=== PATIENT | female | born 1970 | race Caucasian/White ===

== ENCOUNTER 2018-10-20 12:36 | Inpatient (IN) | payer MEDICARE, MEDICAID, SELFPAY ==
[2018-10-20] VITALS (90 sets, daily range): BP systolic 80–152; BP diastolic 61–106; PULSE 88–113; RESP 5–30; TEMP 36.4–36.8; O2SAT 96–100
--- NOTE | 2018-10-20 12:36 | W.ED.GENAD ---
Discharge Plan Disposition Patient Disposition: [facility] INPATIENT Condition: Stable Discharge Details Chief Complaint: OD/Poison Clinical Impression: Polysubstance overdose, Depression, Suicide attempt, Alcohol abuse Reason For Visit: INTENTIONAL OVERDOSE/SUICIDE ATTEMPT Admit Date/Time: 10/20/18 21:50 Admit Provider: Allyson Burton Attending Provider: Allyson Burton Primary Care Provider: Ghassan Jean ED Provider: Cassie Abdi Discharge Data Discharge Date/Time-TO BE ENTERED AT DEPARTURE: 10/20/18 23:31 Medical Decision Making <Basilio Escobar MD - Last Filed: 10/21/18 07:46> 48 yo female comes in with EMS and PD after she reportedly told family she was going to overdose on pills and was intoxicated. When PD and ems got to her house she was combative so they had to give her 5mg IM versed and 2.5mg IV versed. She is currently asleep, PERRL, no signs of trauma to the head, does withdraw to the painful stimuli on exam so unlikely tbi but given the ams will obtain ct head to eval for this. It is unclear what if any pills she took. she has prescription bottles that are empty but were filled over a month ago. Will obtain tox workup and monitor Spoke with the pt's sister Zoila who states she thinks what caused today's episode is likely related to the pt's . The has been in [facility] for a year and she went to see him today and he reportedly refused to see her so she feels this may have caused her incident today. She was not able to say what if any pills she took as she wasn't with her earlier. pt remains stable, was moving in CT so ativan given to help facilitate the study, neuro exam stable. Labs unremarkable other than K of 2.9 and ethyl alcohol of 214, urine positive for amphetamines but is on dextroampehetamine that is prescribed. CT head unremarkable. Will repeat acetaminophen level to make sure this is unremarkable at about 4 hours repeate acetaminophen is negative, K is now normal, lactate is mildly elevated at 3 that I suspect could be from dehydrtaion, less likely significant metformin overdose. will repeat lactate after fluids and recheck alcohol level. She does state she is still having SI and depression lactate level decreasing. ph normal. She has no gi symptoms. When her alcohol level is at a point where mental health can evaluate will have them see the pt. pt is now stating she is having a chest burning that she is unsure when it started. It is nonradiating. I suspect gastritis from recent alcohol use, heart score is 2. Will obtain ekg and troponin. pt will be signed out to oncoming provider to f/u on results and if negative workup have mental health see her Differential Diagnosis polysbustance abuse, depression Imaging Data Radiologic Study: Attestation: I personally reviewed and interpreted this imaging study as follows: Imaging: CT Scan Radiologist's impression: no acute findings Lab Data Lab results reviewed: Yes I reviewed the patient's lab results. ECG Data Attestation: I personally reviewed and interpreted this ECG (s) as follows: Prior ECG tracings: not available for review Interpretation: normal sinus rhythm, rate of 96, pr 144, no acute st t wave ischemic changes 2nd ekg shows sinus rhythm, rate of 101, pr 134, no acute st t wave changes <Cassie Abdi DO - Last Filed: 10/21/18 06:53> 48-year-old female with history of depression, GERD, CVA, cervical cancer, hypertension, diabetes, schizophrenia, alcohol abuse who presents status post intentional poly-drug overdose and alcohol use today. Upon endorsement from Dr. Escobar, patient had been medically cleared, but she had complained of some chest pain so an EKG and troponin was ordered. EKG noted a rate of 101, sinus tachycardia, but no acute ST elevation or depression. Her troponin was subsequently negative. Patient had been drowsy on her initial presentation and the history was unclear at that time. Upon my evaluation, patient states that she has been feeling depressed and suicidal for the past 4 months. She admits to a long-standing history of depression since her daughter at age 12 in an MVA in 2004. She also states her has been in [facility]dc for the past year and possibly for the next 2. She also states her son is addicted to heroin. She states these stressors in addition to the state possibly taking away her 18 dogs, has led her to be more depressed and suicidal. She states she has been drinking 2-1/2 bottles of [employer] rum for the past 9 days. She states in a suicide attempt today, she drank alcohol and took all of her bottles of medication. She states her gabapentin bottle was near full and had 120 tabs in it. Review of her medications include metformin, dextroamphetamine, naproxen, lisinopril, ranitidine, Celexa, Fioricet, lovastatin, gabapentin, hydroxyzine, ropinirole. 2099 -- This was discussed with poison control -as patient has been observed for approximately 9 hours, we would expect some sort of significant side effects at this time. Concerns with metformin include lactic acidosis, with Celexa agitation, increased QT prolongation, Fioricet concern with Tylenol, gabapentin nystagmus, tremors and drowsiness, hydroxyzine as an anticholinergic with tachycardia, drowsiness. As patient is awake and alert and oriented, with no significant QT prolongation, and has been hemodynamically stable, agree that patient is likely medically cleared at this point. She has had 2- Tylenol levels, negative salicylate, and lactate improving after fluids. 2119 --case discussed with hospitalist and she accepts patient for admission. 2199 --discussed with mental health evaluated patient and states that bed might be available for tonight. Will discuss with with hospitalist if possible. HPI <Basilio Escobar MD - Last Filed: 10/21/18 07:46> General Mode of arrival: EMS. Date/Time Provider Initiated Documentation: 10/20/18 12:46. Limitations to Documentation: altered mental status. Information obtained by: police and EMS. History of Present Illness 48 year old F presents to the emergency department with the chief complaint of threatened to harm self, Patient started experiencing this unknown Patient notes other (unknown). Patient did receive the following treatments prior to arrival, other (5mg IM versed with EMS and 2.5mg IV versed with EMS) Related Data Home Medications Medication Instructions Recorded Confirmed [id number]-[id number]-[id number] 1 - 2 cap PO .Q6HRS PRN 10/20/18 10/21/18 citalopram 40 mg PO DAILY 10/20/18 10/20/18 dextroamphetamine-amphetamine 20 mg PO BID 10/20/18 10/21/18 gabapentin 200 mg PO BID 10/20/18 10/21/18 hydroxyzine pamoate 3 cap PO .QHS PRN 10/20/18 10/21/18 lisinopril 2.5 mg PO DAILY 10/20/18 10/21/18 lovastatin 20 mg PO DAILY 10/20/18 10/21/18 metformin 1,000 mg PO BID 10/20/18 10/20/18 naproxen sodium 500 mg PO BID 10/20/18 10/21/18 ranitidine HCl 150 mg PO BID 10/20/18 10/21/18 ropinirole 1 tab PO .QHS 10/20/18 10/20/18 Allergies Allergy/AdvReac Type Severity Reaction Status Date / Time bee venom protein (honey bee) Allergy Severe Anaphylaxsi Unverified 10/20/18 18:33 s strawberry Allergy Severe Anaphylaxsi Unverified 10/20/18 18:33 s morphine Allergy Intermediate Nausea Unverified 10/20/18 18:33 Review of Systems <Basilio Escobar MD - Last Filed: 10/21/18 07:46> Review of Systems Unobtainable due to mental status PFS <Basilio Escobar MD - Last Filed: 10/21/18 07:46> Medical History Alcohol abuse (Chronic) Bipolar disorder (Chronic) Chronic headaches (Chronic) GERD (gastroesophageal reflux disease) (Chronic) Hyperlipidemia (Chronic) Hypertension (Chronic) Non-insulin dependent type 2 diabetes mellitus (Chronic) Schizophrenia (Chronic) Cervical cancer (Resolved) Suicide attempt (Resolved) Surgical History H/O: hysterectomy (Chronic) History of facial surgery (Chronic) S/P cholecystectomy (Chronic) Social History Smoking/Tobacco Use Status: Current every day tobacco type: cigarettes counseling given: provider counseling alcohol intake: current alcohol intake frequency: 3 or more drinks per day Alcohol type: hard liquor counseling given: Yes substance use type: does not use Exam <Basilio Escobar MD - Last Filed: 10/21/18 07:46> Const General: lethargic HENMT Head: normal to inspection Ears: external ears normal General nose exam: external nose normal Mouth: moist mucous membranes Eyes General: appearance normal, both eyes and all related structures Neck Neck: normal visual inspection Resp Effort & Inspection: normal respiratory effort Cardio Rate: regular rate Skin General skin exam: no rashes or lesions noted Neuro General: other (patient asleep, withdraws extremities from painful stimuli and makes groans) Cranial Nerves: PERRL Extrem General: normal to inspection Psych Mental Status: mental status grossly normal Sign Out <Basilio Escobar MD - Last Filed: 10/21/18 07:46> Sign Out Data: Sign Out Comment: follow up on troponin, and mental health eval Last updated by Basilio Escobar MD at 10/20/18 19:54
--- NOTE | 2018-10-20 12:51 | ED.GENADUL_ITS ---
Discharge Plan Disposition Patient Disposition: [facility] INPATIENT Condition: Stable Discharge Details Chief Complaint: OD/Poison Clinical Impression: Polysubstance overdose, Depression, Suicide attempt, Alcohol abuse Reason For Visit: INTENTIONAL OVERDOSE/SUICIDE ATTEMPT Admit Date/Time: 10/20/18 21:50 Admit Provider: Allyson Burton Attending Provider: Allyson Burton Primary Care Provider: Ghassan Jean ED Provider: Cassie Abdi Discharge Data Discharge Date/Time-TO BE ENTERED AT DEPARTURE: 10/20/18 23:31 Medical Decision Making <Basilio Escobar MD - Last Filed: 10/21/18 07:46> 48 yo female comes in with EMS and PD after she reportedly told family she was going to overdose on pills and was intoxicated. When PD and ems got to her house she was combative so they had to give her 5mg IM versed and 2.5mg IV versed. She is currently asleep, PERRL, no signs of trauma to the head, does withdraw to the painful stimuli on exam so unlikely tbi but given the ams will obtain ct head to eval for this. It is unclear what if any pills she took. she has prescription bottles that are empty but were filled over a month ago. Will obtain tox workup and monitor Spoke with the pt's sister Zoila who states she thinks what caused today's episode is likely related to the pt's . The has been in shelter for a year and she went to see him today and he reportedly refused to see her so she feels this may have caused her incident today. She was not able to say what if any pills she took as she wasn't with her earlier. pt remains stable, was moving in CT so ativan given to help facilitate the study, neuro exam stable. Labs unremarkable other than K of 2.9 and ethyl alcohol of 214, urine positive for amphetamines but is on dextroampehetamine that is prescribed. CT head unremarkable. Will repeat acetaminophen level to make sure this is unremarkable at about 4 hours repeate acetaminophen is negative, K is now normal, lactate is mildly elevated at 3 that I suspect could be from dehydrtaion, less likely significant metformin overdose. will repeat lactate after fluids and recheck alcohol level. She does state she is still having SI and depression lactate level decreasing. ph normal. She has no gi symptoms. When her alcohol level is at a point where mental health can evaluate will have them see the pt. pt is now stating she is having a chest burning that she is unsure when it s tarted. It is nonradiating. I suspect gastritis from recent alcohol use, heart score is 2. Will obtain ekg and troponin. pt will be signed out to oncoming provider to f/u on results and if negative workup have mental health see her Differential Diagnosis polysbustance abuse, depression Imaging Data Radiologic Study: Attestation: I personally reviewed and interpreted this imaging study as follows: Imaging: CT Scan Radiologist's impression: no acute findings Lab Data Lab results reviewed: Yes I reviewed the patient's lab results. ECG Data Attestation: I personally reviewed and interpreted this ECG (s) as follows: Prior ECG tracings: not available for review Interpretation: normal sinus rhythm, rate of 96, pr 144, no acute st t wave ischemic changes 2nd ekg shows sinus rhythm, rate of 101, pr 134, no acute st t wave changes <Cassie Abdi DO - Last Filed: 10/21/18 06:53> 48-year-old female with history of depression, GERD, CVA, cervical cancer, hypertension, diabetes, schizophrenia, alcohol abuse who presents status post intentional poly-drug overdose and alcohol use today. Upon endorsement from Dr. Escobar, patient had been medically cleared, but she had complained of some chest pain so an EKG and troponin was ordered. EKG noted a rate of 101, sinus tachycardia, but no acute ST elevation or depression. Her troponin was subsequently negative. Patient had been drowsy on her initial presentation and the history was unclear at that time. Upon my evaluation, patient states that she has been feeling depressed and suicidal for the past 4 months. She admits to a long-standing history of depression since her daughter at age 10 in an MVA in 2004. She also states her has been in shelter for the past year and possibly for the next 2. She also states her son is addicted to heroin. She states these stressors in addition to the state possibly taking away her 18 dogs, has led her to be more depressed and suicidal. She states she has been drinking 2-1/2 bottles of [employer] rum for the past 9 days. She states in a suicide attempt today, she drank alcohol and took all of her bottles of medication. She states her gabapentin bottle was near full and had 120 tabs in it. Review of her medications include metformin, dextroamphetamine, naproxen, lisinopril, ranitidine, Celexa, Fioricet, lovastatin, gabapentin, hydroxyzine, ropinirole. 2099 -- This was discussed with poison control -as patient has been observed for approximately 9 hours, we would expect some sort of significant side effects at this time. Concerns with metformin include lactic acidosis, with Celexa agitation, increased QT prolongation, Fioricet concern with Tylenol, gabapentin nystagmus, tremors and drowsiness, hydroxyzine as an anticholinergic with tachycardia, drowsiness. As patient is awake and alert and oriented, with no significant QT prolongation, and has been hemodynamically stable, agree that patient is likely medically cleared at this point. She has had 2- Tylenol levels, negative salicylate, and lactate improving after fluids. 2119 --case discussed with hospitalist and she accepts patient for admission. 2199 --discussed with mental health evaluated patient and states that bed might be available for tonight. Will discuss with with hospitalist if possible. HPI <Basilio Escobar MD - Last Filed: 10/21/18 07:46> General Mode of arrival: EMS . Date/Time Provider Initiated Documentation: 10/20/18 12:46 . Limitations to Documentation: altered mental status . Information obtained by: police and EMS . History of Present Illness 48 year old F presents to the emergency department with the chief complaint of threatened to harm self, Patient started experiencing this unknown Patient notes other (unknown). Patient did receive the following treatments prior to arrival, other (5mg IM versed with EMS and 2.5mg IV versed with EMS) Related Data Home Medications Medication Instructions Recorded Confirmed jahprosdzr-llyzawojgqadk-qtpk 1 - 2 cap PO .Q6HRS PRN 10/20/18 10/21/18 citalopram 40 mg PO DAILY 10/20/18 10/20/18 dextroamphetamine-amphetamine 20 mg PO BID 10/20/18 10/21/18 gabapentin 200 mg PO BID 10/20/18 10/21/18 hydroxyzine pamoate 3 cap PO .QHS PRN 10/20/18 10/21/18 lisinopril 2.5 mg PO DAILY 10/20/18 10/21/18 lovastatin 20 mg PO DAILY 10/20/18 10/21/18 metformin 1,000 mg PO BID 10/20/18 10/20/18 naproxen sodium 500 mg PO BID 10/20/18 10/21/18 ranitidine HCl 150 mg PO BID 10/20/18 10/21/18 ropinirole 1 tab PO .QHS 10/20/18 10/20/18 Allergies Allergy/AdvReac Type Severity Reaction Status Date / Time bee venom protein (honey bee) Allergy Severe Anaphylaxsi Unverified 10/20/18 18:33 s strawberry Allergy Severe Anaphylaxsi Unverified 10/20/18 18:33 s morphine Allergy Intermediate Nausea Unverified 10/20/18 18:33 Review of Systems <Basilio Escobar MD - Last Filed: 10/21/18 07:46> Review of Systems Unobtainable due to mental status PFS <Basilio Escobar MD - Last Filed: 10/21/18 07:46> Medical History Alcohol abuse (Chronic) Bipolar disorder (Chronic) Chronic headaches (Chronic) GERD (gastroesophageal reflux disease) (Chronic) Hyperlipidemia (Chronic) Hypertension (Chronic) Non-insulin dependent type 2 diabetes mellitus (Chronic) Schizophrenia (Chronic) Cervical cancer (Resolved) Suicide attempt (Resolved) Surgical History H/O: hysterectomy (Chronic) History of facial surgery (Chronic) S/P cholecystectomy (Chronic) Social History Smoking/Tobacco Use Status: Current every day tobacco type: cigarettes counseling given: provider counseling alcohol intake: current alcohol intake frequency: 3 or more drinks per day Alcohol type: hard liquor counseling given: Yes substance use type: does not use Exam <Basilio Escobar MD - Last Filed: 10/21/18 07:46> Const General: lethargic HENMT Head: normal to inspection Ears: external ears normal General nose exam: external nose normal Mouth: moist mucous membranes Eyes General: appearance normal, both eyes and all related structures Neck Neck: normal visual inspection Resp Effort & Inspection: normal respiratory effort Cardio Rate: regular rate Skin General skin exam: no rashes or lesions noted Neuro General: other (patient asleep, withdraws extremities from painful stimuli and makes groans) Cranial Nerves: PERRL Extrem General: normal to inspection Psych Mental Status: mental status grossly normal Sign Out <Basilio Escobar MD - Last Filed: 10/21/18 07:46> Sign Out Data: Sign Out Comment: follow up on troponin, and mental health eval Last updated by Basilio Escobar MD at 10/20/18 19:54
[2018-10-20 13:05] LABS: Abs Immature Grans 0.08 k/cumm (0.0-0.09); Absolute Basophil Count 0.07 k/cumm (0.0-0.2); Absolute Eosinophil Count 0.13 k/cumm (0.0-0.7); Absolute Monocyte Count 0.76 k/cumm (0.11-0.7); Basophils % 0.5; HCT 35.8 % (36.0-46.0); HGB 12.3 g/dL (12.0-15.5); Immature Grans % 0.6; Lymphocytes % 29.5; Mean Corp. HGB Concentration 34.4 g/dL (32.0-36.0); Mean Corpuscular Hemoglobin 31.6 pg (27.0-33.0); Mean Platelet Volume 9.1 fL (8.0-11.0); Monocytes % 5.7; Neutrophils % 62.7; Platelet Count 305 x1000/uL (130-400); RBC 3.89 m/cumm (4.00-5.20); RBC Distribution Width 13.1 % (11.7-14.6); White Blood Cell Count 13.41 k/cumm (4.4-10.8)
[2018-10-20 13:06] LABS: Bilirubin Negative (Negative); Blood Trace-lysed (Negative); Clarity Clear; Glucose Negative (Negative); Ketones Negative (Negative); Leukocyte Esterase Negative (Negative); Nitrite Negative (Negative); Urobilinogen 0.2 EU/dL (Up TO 0.2); pH 6.5 (5-8)
--- NOTE | 2018-10-20 13:06 | DI.CT_ITS ---
SYMPTOM/DIAGNOSIS: ALTERED MENTAL STATUS NONCONTRAST HEAD CT: No intracranial hemorrhage, mass or infarct was seen. There is no evidence of skull fracture. The ventricles are normal in size. The sinuses appear clear. IMPRESSION: Negative head CT
--- NOTE | 2018-10-20 13:15 | NUR.NOTE ---
Nursing Note: Ninoska Johnson sister [phone]
[2018-10-20 13:18] LABS: Absolute Lymphocyte Count 3.96 k/cumm (1.2-3.4); Absolute Neutrophil Count 8.41 k/cumm (1.2-6.7)
[2018-10-20 13:19] LABS: *AMPHETAMINES SCREEN URINE POSITIVE (Negative); *BARBITURATES SCREEN URINE Negative (Negative); *BENZODIAZEPINES SCREEN URINE Negative (Negative); ALT 19 U/L (12-78); AST 11 U/L (15-37); Alkaline Phosphatase 87 U/L (46-116); BUN 5 mg/dL (7-18); Bacteria Rare HPF (Negative); Bilirubin, Direct 0.09 mg/dL (0.00-0.20); Bilirubin, Total 0.3 mg/dL (0.2-1.0); C & S Indicated? No; CREATININE 0.58 mg/dL (0.55-1.02); Calcium 8.3 mg/dL (8.5-10.1); Cannabinoids THC Negative (Negative); Casts 0-2 Hyaline LPF (Negative); Chloride 100 mmol/L (98-107); Cocaine Screen,Urine Negative (Negative); Crystals Negative HPF (Negative); Epithelial Cells Few HPF (Negative); Glucose 194 mg/dL (70-100); METHADONE URINE SCREEN Negative (Negative); Mucus Moderate (Negative); OPIATES URINE SCREEN Negative (Negative); RBC 0-2 (0-2); Sodium 137 mmol/L (136-145); Total Protein 6.6 g/dL (6.4-8.2); WBC 0-2 HPF (0-5)
[2018-10-20] MEDS: LORazepam 2 MG/ML VIAL ×3 (13:20→18:13)
[2018-10-20 13:21] LABS: Tricyclic Antidepressants Negative (Negative)
[2018-10-20 13:24] LABS: Potassium 2.9 mmol/L (3.5-5.1)
[2018-10-20] MEDS: Normal Saline 1,000 ML 150 ML IV (13:30)
[2018-10-20] MEDS: POTASSIUM CHLORIDE 10 MEQ/100 ML BAG 100 MEQ IVPB (13:34)
[2018-10-20 13:39] LABS: Salicylate 3.8 mg/dL (2.8-20.0)
[2018-10-20 13:41] LABS: Acetaminophen < 2 ug/mL (10-30)
[2018-10-20] MEDS: Ondansetron 4 MG/2 ML VIAL (13:42)
--- NOTE | 2018-10-20 13:47 | NUR.NOTE ---
Nursing Note: 1315--moving head and agitated in CT---Dr Escobar consulted--give Lorazapam 1-2 mg IV as needed to complete CT scan
--- NOTE | 2018-10-20 14:19 | DI.VRAD_ITS ---
EXAM: CT Head Without Contrast EXAM DATE/TIME: 10/20/2018 1:07 PM CLINICAL HISTORY: 48 years old, female; Signs and symptoms; Other: Altered mental status TECHNIQUE: Axial computed tomography images of the head/brain without contrast. All CT scans at this facility use at least one of these dose optimization techniques: automated exposure control; mA and/or kV adjustment per patient size (includes targeted exams where dose is matched to clinical indication); or iterative reconstruction. Coronal and sagittal reformatted images were created and reviewed. COMPARISON: No relevant prior studies available. FINDINGS: Brain: Normal. No hemorrhage. No significant white matter disease. No edema. Ventricles: Normal. No ventriculomegaly. Bones/joints: Normal. No acute fracture. Sinuses: Normal as visualized. No acute sinusitis. Mastoid air cells: Normal as visualized. No mastoid effusion. Soft tissues: Normal. IMPRESSION: No acute intracranial abnormality. Dictated and Authenticated by: Norma Liang MD. Ordering:KAREN Richmond MD
[2018-10-20 16:40] LABS: Lactate-non-spesis 3.1 mmol/L (0.6-1.4)
[2018-10-20 16:51] LABS: BUN 5 mg/dL (7-18); CREATININE 0.57 mg/dL (0.55-1.02); Calcium 8.3 mg/dL (8.5-10.1); Chloride 104 mmol/L (98-107); Glucose 160 mg/dL (70-100); Potassium 3.8 mmol/L (3.5-5.1); Sodium 140 mmol/L (136-145)
[2018-10-20 17:37] LABS: Acetaminophen < 2 ug/mL (10-30)
[2018-10-20] MEDS: Normal Saline 1,000 ML 1000 ML IV ×2 (17:41→18:33)
--- NOTE | 2018-10-20 18:22 | PDOC.ERCMPRO ---
Care Management Progress Note Chief Complaint: Patient presenting to ER via police and EMS for OD/Poison, also with SI, polysubstance abuse, altered mental status, depression, alcohol intoxication. No further chart review findings at this time. Per MD: 48 yo female comes in with EMS and PD after she reportedly told family she was going to overdose on pills and was intoxicated. When PD and ems got to her house she was combative Per RN: wanted to use the commode--while I was getting it ,pt pulled self to foot of bed, pulling out IV. Awake ,tearful, stating she wants to .I'm tired of fighting ,I just want to quit. I wish they would have left me there to . CM will respond to ED to assess patient after patient has been medically cleared and assessed by screener. If screener deems patient meets criteria for psychiatric stabilization CM will facilitate interdepartmental huddle with [facility] screener for safety planning considerations and meet with patient to review [facility] policy and safety plan, establish individual wishes for treatment and maintain patient rights. In the interim; please note safety plan below to guide patient care while awaiting further assessment in the ED. INTERIM SAFETY PLAN: as discussed with Dr. Escobar 1. Will remain on suicide precautions and in paper clothes. 2. Will remain in room under direct supervision of one-on-one staff at all times provided by THAIS, [employer] power sweeper operator. 3. May have paper cups, plates, finger foods. 4. Follow [facility] Management of the Admitted Behavioral Health Patient policy. 5. Comfort bath system only. 6. No personal belongings 7. No visitors. 8. Incoming phone contact limited to Zoila nevarez at this time. 9. Due to VOLUNTARY status, if patient wishes to leave [facility], the [facility] general scrap worker must be contacted to re-evaluate patient prior to patient exiting the building. If deemed appropriate for inpatient psychiatric care, safety plan will be established with patient, and care team, to adhere to patient goals, identify restrictions based on behavioral status, address nutrition, and determine allowed personal belongings, tools for hygiene and personal care. As well, plan will determine level of activity including ambulation, level of supervision, visitors, and determine privileges based on level of acuity, behaviors and level of engagement by patient.
--- NOTE | 2018-10-20 18:31 | CMPROGNOTE_ITS ---
Care Management Progress Note Chief Complaint: Patient presenting to ER via police and EMS for OD/Poison, also with SI, polysubstance abuse, altered mental status, depression, alcohol intoxication. No further chart review findings at this time. Per MD: 48 yo female comes in with EMS and PD after she reportedly told family she was going to overdose on pills and was intoxicated. When PD and ems got to her house she was combative Per RN: wanted to use the commode--while I was getting it ,pt pulled self to foot of bed, pulling out IV. Awake ,tearful, stating she wants to .I'm tired of fighting ,I just want to quit. I wish they would have left me there to . CM will respond to ED to assess patient after patient has been medically cleared and assessed by screener. If screener deems patient meets criteria for psychiatric stabilization CM will facilitate interdepartmental huddle with [facility] screener for safety planning considerations and meet with patient to review [facility] policy and safety plan, establish individual wishes for treatment and maintain patient rights. In the interim; please note safety plan below to guide patient care while awaiting further assessment in the ED. INTERIM SAFETY PLAN: as discussed with Dr. Escobar 1. Will remain on suicide precautions and in paper clothes. 2. Will remain in room under direct supervision of one-on-one staff at all times provided by THAIS, SALVATORE director of medicare. 3. May have paper cups, plates, finger foods. 4. Follow [facility] Management of the Admitted Behavioral Health Patient policy. 5. Comfort bath system only. 6. No personal belongings 7. No visitors. 8. Incoming phone contact limited to Zoila nevarez at this time. 9. Due to VOLUNTARY status, if patient wishes to leave [facility], the [facility] plate take out worker must be contacted to re-evaluate patient prior to patient exiting the building. If deemed appropriate for inpatient psychiatric care, safety plan will be established with patient, and care team, to adhere to patient goals, identify restrictions based on behavioral status, address nutrition, and determine allowed personal belongings, tools for hygiene and personal care. As well, plan will determine level of activity including ambulation, level of supervision, visitors, and determine privileges based on level of acuity, behaviors and level of engagement by patient.
[2018-10-20 19:13] LABS: Lactate-non-spesis 2.6 mmol/L (0.6-1.4)
[2018-10-20 19:14] LABS: BE (Venous) -3.3 mmol/L (-3-3); HCO3 (Venous) 23 mmol/L (22-28); O2 Sat (Venous) 70 % (70-80); TCO2 (Venous) 21 mmol/L (22-29); pCO2 (Venous) 42 mm/Hg (34-47); pH (Venous) 7.34 (7.32-7.43); pO2 (Venous) 37 mm/Hg (28-44)
[2018-10-20 19:27] LABS: ETHANOL BLOOD 46.5 mg/dL (<3)
[2018-10-20 20:28] LABS: Troponin I < 0.02 ng/mL (0.00-0.06)
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
--- NOTE | 2018-10-20 23:22 | HPE_ITS ---
Date of service: 10/20/18 Time of Service: 22:51 Assessment and Plan (1) Suicide attempt: Current visit: Yes Status: Acute The patient has a history of a past attempt, remains suicidal and is at a high risk of recurrence. Evaluated by mental health and is felt to require inpatient psychiatric hospitalization once medically clear. Meanwhile, patient will be monitored in the ICU to ensure that she did not herrera ffer from any adverse effects of the overdose. Continue 1:1 monitoring and suicide precautions. It is anticipated that the patient will be medically cleared on 10/21/18. (2) Intentional overdose of drug in tablet form: Current visit: Yes Status: Acute Reviewing the patient's list of medications, she could have taken any of them, including gabapentin, tylenol, citalopram, dextroamphetamine, hydroxyzine, lisinopril, metformin, lovastatin, ranitidine and ropinirole. Dr Abdi spoke with poison control center, and it is felt that the majority of these medications, if truly taken, would have shown much greater symptoms than observed in the patient now. However, she will require monitoring for 24 hours in the ICU to make sure that her condition does not deteriorate. She will be on suicide precautions. All of her medications are on hold. (3) Alcohol abuse: Current visit: Yes Status: Chronic Patient is able to take PO. Monitor on CIWA with PO vitamins and prn lorazepam. (4) SIRS (systemic inflammatory response syndrome): Current visit: Yes Status: Acute Likely reactive - due to overdose. However, will check CXR to ensure the patient does not have a true infectious process. UA is negative. No role for antibiotics at this time. (5) Depression: Current visit: Yes Status: Chronic As above - will need inpatient psychiatric hospitalization (6) Non-insulin dependent type 2 diabetes mellitus: Current visit: Yes Status: Chronic Hold metformin (and monitor lactic acid). Cover with sliding scale insulin. (7) Hyperlipidemia: Current visit: Yes Status: Chronic Hold lovastatin (8) Hypertension: Current visit: Yes Status: Chronic hold lisinopril (9) GERD (gastroesophageal reflux disease): Current visit: Yes Status: Chronic Hold ranitidine (10) Schizophrenia: Current visit: Yes Status: Chronic Pending psychiatric admission (11) Bipolar disorder: Current visit: Yes Status: Chronic pending psychiatric admission (12) DVT prophylaxis: Current visit: Yes Status: Acute Lovenox (13) Discharge planning issues: Current visit: Yes Status: Acute Full code Will need inpatient psychiatric hospitalization History of Present Illness Chief Complaint: Suicide attempt Narrative: Ms Hammer is a 48 year old female with PMHx of Bipolar disorder, prior suicide attempt with history of a psychiatric hospitalization in the past, schizophrenia, noninsulin dependent diabetes mellitus type 2, hypertension, and hyperlipidemia, who attempted to commit suicide today by taking all of the pills that were there (at her home). She has also been drinking 2 large Captain Maurisio bottles per day, including today. She still admits to being suicidal, stating that she wants to end it all. She states that there are several reasons for this, one of them being that they are taking her dogs away and that her is leaving her. The patient told the family that she was going to overdose on pills. When EMS/PD got there, per ER records, she was combative and had to be sedated with versed. At this time, the patient is somnolent, arousable, A&Ox3, able to tell her story, but falls a sleep during the interview. She denies any symptoms other than emotional numbness. It is unclear what medications the patient actually had at home, but all of the possibilities from the patient's prescriptions known to us were reviewed with poison control center. At this point, the patient likely still experiences an effect from hydroxyzine, metformin, gabapentin. The symptoms to look for would be drowsiness and tachycardia; lactic acid would need to be monitored. We were asked to admit the patient for further observation and care. Upon being medically clear, mental health recommends that the patient be hospitalized at a psychiatric facility. Review of Systems Review of Systems 12 systems reviewed. Pertinent positives and negatives are as per HPI [facility] Medical History Alcohol abuse (Chronic) Bipolar disorder (Chronic) Chronic headaches (Chronic) GERD (gastroesophageal reflux disease) (Chronic) Hyperlipidemia (Chronic) Hypertension (Chronic) Non-insulin dependent type 2 diabetes mellitus (Chronic) Schizophrenia (Chronic) Cervical cancer (Resolved) Suicide attempt (Resolved) Surgical History H/O: hysterectomy (Chronic) History of facial surgery (Chronic) S/P cholecystectomy (Chronic) Social History Smoking/Tobacco Use Status: Current every day tobacco type: cigarettes counseling given: provider counseling alcohol intake: current alcohol intake frequency: 3 or more drinks per day Alcohol type: hard liquor counseling given: Yes substance use type: does not use Meds Home Medications Medication Instructions Recorded Confirmed Type [id number]-ecukpunbksycd-[id number] 1 - 2 cap PO .Q6HRS PRN 10/20/18 10/20/18 History citalopram 40 mg PO DAILY 10/20/18 10/20/18 History dextroamphetamine-amphetamine 20 mg PO BID 10/20/18 10/20/18 History gabapentin 200 mg PO BID 10/20/18 10/20/18 History hydroxyzine pamoate 3 cap PO .QHS PRN 10/20/18 10/20/18 History lisinopril 2.5 mg PO DAILY 10/20/18 10/20/18 History lovastatin 20 mg PO DAILY 10/20/18 10/20/18 History metformin 1,000 mg PO BID 10/20/18 10/20/18 History naproxen sodium 500 mg PO BID 10/20/18 10/20/18 History ranitidine HCl 150 mg PO BID 10/20/18 10/20/18 History ropinirole 1 tab PO .QHS 10/20/18 10/20/18 History Allergies Allergy/AdvReac Type Severity Reaction Status Date / Time bee venom protein (honey bee) Allergy Severe Anaphylaxsi Unverified 10/20/18 18:33 s strawberry Allergy Severe Anaphylaxsi Unverified 10/20/18 18:33 s morphine Allergy Intermediate Nausea Unverified 10/20/18 18:33 Exam Narrative Exam Narrative: General: Somnolent middle-aged female, sleeping comfortably in bed, falls asleep multiple times during our interview Neurological: A&Ox3, no focal deficits, somnolent Psychiatric: depressed, expresses suicidal ideation Skin: no obvious bruises/rashes HEENT: EOMI, Dry MM, + small goiter, no submandibular or cervical ly mphadenopathy, no JVD Cardiovascular: RRR, tachycardic Lungs: CTAB Gastrointestinal: abdomen soft, nontender, nondistended Extremities: no edema, clubbing, or cyanosis of BLE's, 2+ pedal pulses bilate rally Results Imaging Additional studies: CT head without contrast: No acute intracranial abnormality. EKG: Sinus tachycardia, HR 101, no acute ischemia, QTc 480 ms Labs : 10/20/18 12:55 10/20/18 16:35 Laboratory Results - last 24 hr 10/20/18 10/20/18 10/20/18 12:55 12:55 12:55 WBC 13.41 H RBC 3.89 L Hgb 12.3 Hct 35.8 L MCV 92.0 MCH 31.6 MCHC 34.4 RDW 13.1 Plt Count 305 MPV 9.1 Immature Gran % 0.6 Neutrophils % 62.7 Lymphocytes % 29.5 Monocytes % 5.7 Eosinophils % 1.0 Basophils % 0.5 Absolute Neutrophils 8.41 H Absolute Lymphocytes 3.96 H Absolute Monocytes 0.76 H Absolute Eosinophils 0.13 Absolute Basophils 0.07 VBG pH VBG pCO2 VBG pO2 VBG HCO3 VBG Total CO2 VBG O2 Saturation VBG Base Excess Sodium 137 Potassium 2.9 L* Chloride 100 Carbon Dioxide 24.0 Anion Gap 13.0 H BUN 5 L Creatinine 0.58 Estimated GFR/1.73 m2 >= 60.00 Glucose 194 H Lactate Calcium 8.3 L Total Bilirubin 0.3 Conjugated Bilirubin 0.09 AST 11 L ALT 19 Alkaline Phosphatase 87 Troponin I Total Protein 6.6 Albumin 3.0 L Urine Color Urine Clarity Urine pH Ur Specific Roca Urine Protein Urine Ketones Urine Blood Urine Nitrite Urine Bilirubin Urine Urobilinogen Ur Leukocyte Esterase Urine RBC Urine WBC Ur Epithelial Cells Urine Crystals Urine Bacteria Urine Casts Urine Mucus Ur Culture Indicated? Urine Glucose Salicylates 3.8 Urine Opiates Screen Urine Methadone Screen Acetaminophen < 2 L Ur Barbiturates Screen Ur Tricyclics Screen Ur Amphetamines Screen U Benzodiazepines Scrn Urine Cocaine Screen Ur THC Screen Ethyl Alcohol 214.0 10/20/18 10/20/18 10/20/18 12:55 12:55 16:35 WBC RBC Hgb Hct MCV MCH MCHC RDW Plt Count MPV Immature Gran % Neutrophils % Lymphocytes % Monocytes % Eosinophils % Basophils % Absolute Neutrophils Absolute Lymphocytes Absolute Monocytes Absolute Eosinophils Absolute Basophils VBG pH VBG pCO2 VBG pO2 VBG HCO3 VBG Total CO2 VBG O2 Saturation VBG Base Excess Sodium Potassium Chloride Carbon Dioxide Anion Gap BUN Creatinine Estimated GFR/1.73 m2 Glucose Lactate Calcium Total Bilirubin Conjugated Bilirubin AST ALT Alkaline Phosphatase Troponin I Total Protein Albumin Urine Color Yellow Urine Clarity Clear Urine pH 6.5 Ur Specific Roca 1.020 Urine Protein 100 H Urine Ketones Negative Urine Blood Trace-lysed H Urine Nitrite Negative Urine Bilirubin Negative Urine Urobilinogen 0.2 Ur Leukocyte Esterase Negative Urine RBC 0-2 Urine WBC 0-2 Ur Epithelial Cells Few Urine Crystals Negative Urine Bacteria Rare Urine Casts 0-2 hyaline Urine Mucus Moderate Ur Culture Indicated? No Urine Glucose Negative Salicylates Urine Opiates Screen Negative Urine Methadone Screen Negative Acetaminophen < 2 L Ur Barbiturates Screen Negative Ur Tricyclics Screen Negative Ur Amphetamines Screen Positive U Benzodiazepines Scrn Negative Urine Cocaine Screen Negative Ur THC Screen Negative Ethyl Alcohol 10/20/18 10/20/18 10/20/18 16:35 16:35 18:55 WBC RBC Hgb Hct MCV MCH MCHC RDW Plt Count MPV Immature Gran % Neutrophils % Lymphocytes % Monocytes % Eosinophils % Basophils % Absolute Neutrophils Absolute Lymphocytes Absolute Monocytes Absolute Eosinophils Absolute Basophils VBG pH VBG pCO2 VBG pO2 VBG HCO3 VBG Total CO2 VBG O2 Saturation VBG Base Excess Sodium 140 Potassium 3.8 D Chloride 104 Carbon Dioxide 26.0 Anion Gap 10.0 BUN 5 L Creatinine 0.57 Estimated GFR/1.73 m2 >= 60.00 Glucose 160 H Lactate 3.1 H 2.6 H Calcium 8.3 L Total Bilirubin Conjugated Bilirubin AST ALT Alkaline Phosphatase Troponin I Total Protein Albumin Urine Color Urine Clarity Urine pH Ur Specific Roca Urine Protein Urine Ketones Urine Blood Urine Nitrite Urine Bilirubin Urine Urobilinogen Ur Leukocyte Esterase Urine RBC Urine WBC Ur Epithelial Cells Urine Crystals Urine Bacteria Urine Casts Urine Mucus Ur Culture Indicated? Urine Glucose Salicylates Urine Opiates Screen Urine Methadone Screen Acetaminophen Ur Barbiturates Screen Ur Tricyclics Screen Ur Amphetamines Screen U Benzodiazepines Scrn Urine Cocaine Screen Ur THC Screen Ethyl Alcohol 10/20/18 10/20/18 10/20/18 18:55 18:55 19:52 WBC RBC Hgb Hct MCV MCH MCHC RDW Plt Count MPV Immature Gran % Neutrophils % Lymphocytes % Monocytes % Eosinophils % Basophils % Absolute Neutrophils Absolute Lymphocytes Absolute Monocytes Absolute Eosinophils Absolute Basophils VBG pH 7.34 VBG pCO2 42 VBG pO2 37 VBG HCO3 23 VBG Total CO2 21 L VBG O2 Saturation 70 VBG Base Excess -3.3 L Sodium Potassium Chloride Carbon Dioxide Anion Gap BUN Creatinine Estimated GFR/1.73 m2 Glucose Lactate Calcium Total Bilirubin Conjugated Bilirubin AST ALT Alkaline Phosphatase Troponin I < 0.02 Total Protein Albumin Urine Color Urine Clarity Urine pH Ur Specific Roca Urine Protein Urine Ketones Urine Blood Urine Nitrite Urine Bilirubin Urine Urobilinogen Ur Leukocyte Esterase Urine RBC Urine WBC Ur Epithelial Cells Urine Crystals Urine Bacteria Urine Casts Urine Mucus Ur Culture Indicated? Urine Glucose Salicylates Urine Opiates Screen Urine Methadone Screen Acetaminophen Ur Barbiturates Screen Ur Tricyclics Screen Ur Amphetamines Screen U Benzodiazepines Scrn Urine Cocaine Screen Ur THC Screen Ethyl Alcohol 46.5 Last Vital Signs Temp 36.4 C L 10/20/18 12:39 Pulse 98 H 10/20/18 18:30 Resp 12 10/20/18 18:40 BP 123/80 10/20/18 18:30 Pulse Ox 99 10/20/18 18:31
--- NOTE | 2018-10-20 23:52 | DI.RAD_ITS ---
SYMPTOM/DIAGNOSIS: R/O ASPIRATION PNEUMONIA PORTABLE CHEST: There are no prior comparison exams. The exam is limited by respiratory motion and poor pulmonary inflation. The heart size is normal. The lungs are grossly clear. Leads overlie the chest. IMPRESSION: Limited exam. No acute abnormality.
[2018-10-21] VITALS (95 sets, daily range): BP systolic 103–137; BP diastolic 62–89; PULSE 83–109; RESP 10–27; TEMP 36.1–37.4; O2SAT 94–100
[2018-10-21 00:04] LABS: Magnesium 1.5 mg/dL (1.8-2.4)
--- NOTE | 2018-10-21 00:04 | DI.VRAD_ITS ---
EXAM: XR Chest, 1 View EXAM DATE/TIME: 10/20/2018 11:53 PM CLINICAL HISTORY: 48 years old, female; Signs and symptoms; Other: AMS, ; patient HX: AMS, may have vomited, loc due to od TECHNIQUE: XR of the chest, 1 view. COMPARISON: No relevant prior studies available. FINDINGS: Lungs: Unremarkable. No consolidation. Pleural space: Unremarkable. No evidence of pneumothorax. Heart/Mediastinum: Unremarkable. Heart size within normal limits for technique. Bones/joints: Unremarkable. IMPRESSION: No acute findings. Dictated and Authenticated by: Patrick Meyer MD. Ordering:FARHAD Valadez MD
[2018-10-21] MEDS: Normal Saline 1,000 ML 150 ML IV ×2 (00:12→11:33)
[2018-10-21] MEDS: THIAMINE 100 MG in Normal Saline 100 ML 200 MG IVPB (00:12)
[2018-10-21] MEDS: Nicotine 14 MG/24 HR PATCH TD ×2 (00:19→09:19)
[2018-10-21] MEDS: MAGNESIUM SULFATE 4 GM/100 ML BAG IVPB (02:18)
[2018-10-21 07:22] LABS: Lactate-non-spesis 1.5 mmol/L (0.6-1.4)
[2018-10-21 07:23] LABS: Abs Immature Grans 0.04 k/cumm (0.0-0.09); Absolute Basophil Count 0.04 k/cumm (0.0-0.2); Absolute Eosinophil Count 0.15 k/cumm (0.0-0.7); Absolute Lymphocyte Count 3.52 k/cumm (1.2-3.4); Absolute Monocyte Count 0.78 k/cumm (0.11-0.7); Basophils % 0.3; Eosinophils % 1.2; HCT 34.3 % (36.0-46.0); HGB 11.5 g/dL (12.0-15.5); Immature Grans % 0.3; Lymphocytes % 28.8; Mean Corp. HGB Concentration 33.5 g/dL (32.0-36.0); Mean Corpuscular Hemoglobin 31.1 pg (27.0-33.0); Mean Corpuscular Volume 92.7 fL (80-95); Mean Platelet Volume 9.2 fL (8.0-11.0); Monocytes % 6.4; Platelet Count 288 x1000/uL (130-400); RBC Distribution Width 13.5 % (11.7-14.6); White Blood Cell Count 12.23 k/cumm (4.4-10.8)
[2018-10-21 07:48] LABS: ALT 14 U/L (12-78); AST 14 U/L (15-37); Albumin 2.6 g/dL (3.4-5.0); Alkaline Phosphatase 86 U/L (46-116); Anion Gap 7.3 mmol/L (3-11); BUN 4 mg/dL (7-18); Bilirubin, Total 0.5 mg/dL (0.2-1.0); CO2 25.7 mmol/L (21.0-32.0); CREATININE 0.66 mg/dL (0.55-1.02); Calcium 7.5 mg/dL (8.5-10.1); Chloride 104 mmol/L (98-107); Glucose 143 mg/dL (70-100); Magnesium 3.3 mg/dL (1.8-2.4); Potassium 3.9 mmol/L (3.5-5.1); Sodium 137 mmol/L (136-145); TSH (W/Ref FT4) 0.52 uIU/mL (0.358-3.74); Total Protein 5.8 g/dL (6.4-8.2)
[2018-10-21] MEDS: Folic Acid 1 MG TAB PO (09:18)
[2018-10-21] MEDS: Potassium Chloride 10 MEQ TABCR PO (09:18)
[2018-10-21] MEDS: Multivitamin TAB 1 TAB PO (09:18)
[2018-10-21] MEDS: Thiamine 100 MG TAB PO (09:18)
[2018-10-21] MEDS: Enoxaparin 40 MG/0.4 ML SYR SC (09:18)
--- NOTE | 2018-10-21 12:01 | W.INMHPGNOTE ---
Date of service: 10/21/18 Time of Service: 12:02 Mental Health Crisis Note Presenting Issue How did you arrive at the ED and why did you come: Patient arrived yesterday evening due to an overdose following a visit she had with her at the skilled nursing. Precipitating Factors Patient still states she wants to commit suicide. She expresses frustration with the people trying to stop this. However, she still is reporting she would participate in voluntary admission. She denies auditory and visual hallucinations and does not present with signs of thought disturbance, paranoia, or delusional thinking at this time. Disposition BEHAVIOR: depressed mood, lethargic movements EYE CONTACT: poor MOOD: depressed AFFECT: constricted/blunted APPETITE: good appetite SLEEP(trouble falling/staying asleep: heavily sedated, sleeping a lot at this time Plan Due to lethargic behavior and patient's inability to stay engaged in conversation from potential side effects that remain from overdose, Dr. Dia is recommending she have 24 more hours on intensive care unit. Hospitalization placement referrals have been completed at [facility] and [facility] at this time. Signature Clinician's Name/Title: Tj Bolaños MA [facility] 10-21-18
[2018-10-21 14:21] LABS: Lactate-non-spesis 1.2 mmol/L (0.6-1.4)
[2018-10-21 16:01] LABS: Bilirubin Negative (Negative); Blood Large (Negative); Clarity Sl Cloudy; Glucose Negative (Negative); Ketones Negative (Negative); Leukocyte Esterase Large (Negative); Nitrite Negative (Negative); Urobilinogen 0.2 EU/dL (Up TO 0.2)
[2018-10-21 16:16] LABS: C & S Indicated? Yes; RBC >50 (0-2)
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
--- NOTE | 2018-10-21 16:48 | INITIAL_ITS ---
- If Service Date Differs Date of service: 10/21/18 Time of Service: 16:17 Care Management Initial Assess REASON FOR HOSPITALIZATION:: SI/intentional overdose PAST MEDICAL HISTORY/PAST SURGICAL HISTORY:: Diabetes, bipolar, schizophrenia, suicide attempt, depression, hypertension, hyperlipidemia, EtOH abuse, GERD. Surgical history hysterectomy and oophorectomy, cholecystectomy. PREVIOUS FUNCTIONAL STATUS/SOCIAL/FAMILY SUPPORTS:: Raegan lives alone in her home in [facility]. Raegan is disabled. she states she has a long history of depression her daughter in a car accident when she was 12 years old. Her spouse Honorio is currently incarcerated and was sentenced to the next 18 months. She does have a living son but she states she does not know where he is. She has 3 sisters she reports Zoila is her closest contact followed by her Sister Ninoska whom she reports she does not trust. CURRENT FUNCTIONAL STATUS:: Raegan is lying in her bed in the ICU, she is tearful and crying in pain which she reports is abdominal. She states she no longer wants to be alive. She states that if she is left alone she will kill herself. She reports a long history of depression, she meets with a billing specialist every other week. She states that she sees her primary care provider once a month. She felt that she was doing well until her spouse was incarcerated. She reports she feels safe when he is with her and without him she has no hope. She reports that she does not sleep, due to nightmares and hallucinations. She states she also recently lost her animals which is taken away her will to live. Raegan describes hopelessness, and suicidality, she is willing to seek psychiatric treatment at this time. ADVANCE DIRECTIVES:: None on file Has patient been provided with information about the portal?: No Did the patient sign up for the portal?: No CODE STATUS:: Full Code INSURANCE COVERAGE / FINANCIAL ISSUES:: Medicare CURRENT HOME/COMMUNITY SERVICES/EQUIPMENT:: Nebulizer, behavioral health through primary care. PRIMARY CARE PHYSICIAN:: Yadiel Burden MD, MPH [phone] POTENTIAL DISCHARGE NEEDS:: Discharge disposition to psychiatric facility for stabilization PATIENT/FAMILY EDUCATION NEEDS:: Treatment plan, safety plan, follow-up plan of care, and continuous observation by CPSO. ANTICIPATED BARRIERS TO DISCHARGE:: Bed availability at psychiatric facility TRANSPORTATION:: Rehab Assistant versus ambulance pending discharge disposition. PLAN:: Raegan is currently being treated in the ICU for intentional overdose, and suicidal ideation. Raegan remains on suicide precautions and cardiac monitoring related to intentional overdose. Raegan is to have a one-on-one CPSO at all times. Mental health evaluated patient today, currently she is not medically cleared for discharge. Referrals have been sent to psychiatric facilities across [place] including [place], and [facility]. Anticipate Raegan will be discharged to psychiatric facility for stabilization once medically clear. CM met with primary nurse, patient and [facility] to review safety plan and medical status. CM to continue to provide support to patient discharge planning and disposition.
--- NOTE | 2018-10-21 16:49 | PDOC.CMPRO ---
- If Service Date Differs Date of service: 10/21/18 Time of Service: 16:49 Care Management Progress Note Raegan is a 48 year old female admitted in Voluntary status for attempted suicide by intentional overdose. She is currently voluntary admission awaiting medical clearance to be discharged to psychiatric facility for stabilization. Raegan has a reported history of depression and Bipolar. She states that she lost her daughter in a car accident when her daughter was 12 years old. She reports a history of poor sleep, nightmares, and hallucinations. She has tried medications in the past however she reports recently her symptoms of depression have increased and she no longer wants to be alive. She feels that her thoughts of suicide have become more constant since her spouse was incarcerated. Raegan states if left alone or if she was to be discharged from [facility] she would harm self. Huddle: MIKA met with [facility] Tj through [facility], and Primary RN Lakshmi related to interim safety plan while Raegan is ICU level of care awaiting medical clearance.CM has reviewed the safety plan with provider and has requested updated ordered be placed in EMAR. SAFETY PLAN: 1. Will remain on suicide precautions patient may be in a gown and continues cardiac monitoring as required. 2. Will remain in room under direct supervision of one-on-one staff at all times provided by THAIS, DIRECTOR OF ACCREDITATION newspaper press operator apprentice. 3. May have paper cups, plates, finger foods. 4. Follow [facility] Management of the Admitted Behavioral Health Patient policy. 5. Comfort bath system only. 6. No personal belongings 7. Visitors at the request of patient include sister Zoila and Ninoska 8. Incoming phone contact limited to sisters, Zoila, and Ninoska 9. Activities include TV in the room, coloring and soft tip markers. 10. Due to VOLUNTARY status, if patient wishes to leave [facility], the [facility] general scrap worker must be contacted to re-evaluate patient prior to patient exiting the building. P:Once medically clear Raegan [facility] will facilitate psychiatric bed for stabilization. Safety plan will be established with patient, and care team, to adhere to patient goals, identify restrictions based on behavioral status, address nutrition, and determine allowed personal belongings, tools for hygiene and personal care. As well, plan will determine level of activity including ambulation, level of supervision, visitors, and determine privileges based on level of acuity, behaviors and level of engagement by patient.
--- NOTE | 2018-10-21 17:03 | CMPROGNOTE_ITS ---
- If Service Date Differs Date of service: 10/21/18 Time of Service: 16:49 Care Management Progress Note Raegan is a 48 year old female admitted in Voluntary status for attempted suicide by intentional overdose. She is currently voluntary admission awaiting medical clearance to be discharged to psychiatric facility for stabilization. Raegan has a reported history of depression and Bipolar. She states that she lost her daughter in a car accident when her daughter was 12 years old. She reports a history of poor sleep, nightmares, and hallucinations. She has tried medications in the past however she reports recently her symptoms of depression have increased and she no longer wants to be alive. She feels that her thoughts of suicide have become more constant since her spouse was incarcerated. Raegan states if left alone or if she was to be discharged from [facility] she would harm self. Huddle: MIKA met with [facility] Tj through [facility], and Primary RN Lakshmi related to interim safety plan while Raegan is ICU level of care awaiting medical clearance.CM has reviewed the safety plan with provider and has requested updated ordered be placed in EMAR. SAFETY PLAN: 1. Will remain on suicide precautions patient may be in a gown and continues cardiac monitoring as required. 2. Will remain in room under direct supervision of one-on-one staff at all times provided by THAIS, LUMBER TYING MACHINE OPERATOR professor of religion. 3. May have paper cups, plates, finger foods. 4. Follow [facility] Management of the Admitted Behavioral Health Patient policy. 5. Comfort bath system only. 6. No personal belongings 7. Visitors at the request of patient include sister Zoila and Ninoska 8. Incoming phone contact limited to sisters, Zoila, and Ninoska 9. Activities include TV in the room, coloring and soft tip markers. 10. Due to VOLUNTARY status, if patient wishes to leave [facility], the [facility] nitro worker must be contacted to re-evaluate patient prior to patient exiting the building. P:Once medically clear Raegan [facility] will facilitate psychiatric bed for stabilization. Safety plan will be established with patient, and care team, to adhere to patient goals, identify restrictions based on behavioral status, address nutrition, and determine allowed personal belongings, tools for hygiene and personal care. As well, plan will determine level of activity including ambulation, level of supervision, visitors, and determine privileges based on level of acuity, behaviors and level of engagement by patient.
[2018-10-21] MEDS: Insulin Aspart 300 UNITS/3 ML PEN SC ×2 (18:35→22:34)
--- NOTE | 2018-10-21 20:09 | W.PM.PROGNOT ---
Date of Service Date of service: 10/21/18 Time of Service: 20:09 Assessment and Plan (1) Suicide attempt: Current visit: Yes Status: Acute Suicide attempt in patient with a prior history of suicidal ideation and suicide attempt, depression, bipolar, and schizophrenia. She has been hospitalized for this in the past. Currently still suicidal but remains a voluntary admission. She has been evaluated by mental health, and will do better with inpatient psychiatric hospitalization once medically clear. Plan is for an additional day of observation in the intensive care unit to ensure that she is clear, with appropriate lab work, and resolution of her lactic acidosis which was minimally elevated. Of note, per review of records, ED physician spoke with poison control center, and it is felt that the majority of these medications, if truly taken, would have shown much greater symptoms than observed in the patient at time of presentation. However, she will require monitoring for 24 hours in the ICU to make sure that her condition does not deteriorate. She will be on suicide precautions SPELLED OUT BY SAFETY PLAN via [facility]. All of her medications are on hold. (2) Intentional overdose of drug in tablet form: Current visit: Yes Status: Acute As Above. (3) Alcohol abuse: Current visit: Yes Status: Chronic No evidence of withdrawal currently, but will maintain on CIWA protocol. (4) UTI (urinary tract infection): Current visit: Yes Status: Acute Evidence of potential UTI by urinalysis. Initiate antibiotic therapy with once daily ceftriaxone. (5) DVT prophylaxis: Current visit: Yes Status: Acute SC lovenox. Subjective Interval history since last seen: 48 year old woman with a prior medical history significant for bipolar disorder, schizophrenia, and prior suicide attempts necessitating psychiatric hospitalizations, admitted from [facility] Emergency Department on 10/20 with a reported suicide attempt. Ms Hammer the prior medical history significant for bipolar disorder, schizophrenia, as well as a prior suicide attempt. She has been hospitalized in the past at a psychiatric facility for this. She also has a medical history of DM, HTN, and dyslipidemia. She was evaluated in the ED following an attempt to commit suicide by taking all of her pills that were there. She is noted to be on SSRI therapy, dextromethorphan/amphetamine, gabapentin, hydroxyzine, KAREY inhibitor, statin, metformin, NSAIDs, and ropinirole at home. She is also been reportedly drinking 2 large bottles of Captain Maurisio per day over the last few days. She was reportedly still suicidal and continue to want to end it all. She is reporting the reason as losing 1 of her dogs, and her leaving her. In the ED the patient was initially found to be combative and had to be sedated with Versed. Poison control was contacted and all of her medications reviewed - thought that she may still be experiencing effects from either hydroxyzine, metformin, or gabapentin, with reported drowsiness and tachycardia as well as lactic acidosis as potential side effects. The patient was admitted for further observation until medically cleared to be hospitalized in a psychiatric facility. Exam Narrative Exam Narrative: General: Patient appears drowsy but easily arousable. Oriented X3. NAD Neck: Supple CV: Regular, nontachycardic at time of exam, S1S2, No rubs, murmurs, or gallops. Pulmonary: Clear to auscultation bilaterally, no crackles, wheezing, or rhonchi Abdomen: + Bowel Sounds, soft, nontender, nondistended Vascular: No lower extremity edema Psych: Normal mood and affect. Objective Objective Clinical Data: Abnormal lab results 10/20/18 10/21/18 10/21/18 Range/Units 19:52 07:10 07:10 WBC (4.4-10.8) k/cumm RBC (4.00-5.20) m/cumm Hgb (12.0-15.5) g/dL Hct (36.0-46.0) % Absolute Neutrophils (1.2-6.7) k/cumm Absolute Lymphocytes (1.2-3.4) k/cumm Absolute Monocytes (0.11-0.7) k/cumm BUN 4 L (7-18) mg/dL Glucose 143 H (70-100) mg/dL Lactate 1.5 H (0.6-1.4) mmol/L Calcium 7.5 L (8.5-10.1) mg/dL Magnesium 1.5 L 3.3 H (1.8-2.4) mg/dL AST 14 L (15-37) U/L Total Protein 5.8 L (6.4-8.2) g/dL Albumin 2.6 L (3.4-5.0) g/dL Urine Protein (Negative) mg/dL Urine Blood (Negative) Ur Leukocyte Esterase (Negative) Urine RBC (0-2) 10/21/18 10/21/18 Range/Units 07:10 15:40 WBC 12.23 H (4.4-10.8) k/cumm RBC 3.70 L (4.00-5.20) m/cumm Hgb 11.5 L (12.0-15.5) g/dL Hct 34.3 L (36.0-46.0) % Absolute Neutrophils 7.70 H (1.2-6.7) k/cumm Absolute Lymphocytes 3.52 H (1.2-3.4) k/cumm Absolute Monocytes 0.78 H (0.11-0.7) k/cumm BUN (7-18) mg/dL Glucose (70-100) mg/dL Lactate (0.6-1.4) mmol/L Calcium (8.5-10.1) mg/dL Magnesium (1.8-2.4) mg/dL AST (15-37) U/L Total Protein (6.4-8.2) g/dL Albumin (3.4-5.0) g/dL Urine Protein 100 H (Negative) mg/dL Urine Blood Large H (Negative) Ur Leukocyte Esterase Large H (Negative) Urine RBC >50 H (0-2) Vital Signs Temperature 36.6 C 10/21/18 16:11 Temperature Source Tympanic 10/21/18 16:11 Pulse 83 10/21/18 12:01 Pulse 101 H 10/21/18 15:40 Respiratory Rate 12 10/21/18 15:40 Respiratory Effort Non-Labored 10/21/18 16:11 Respiratory Depth Normal 10/21/18 16:11 Respiratory Pattern Normal 10/21/18 16:11 Blood Pressure 110/85 10/21/18 12:01 Blood Pressure Mean 91 10/21/18 12:01 Blood Pressure Position Supine 10/21/18 08:40 Pulse Oximetry 100 10/21/18 09:40 Respiratory End-tidal CO2 28 10/20/18 16:10 Oxygen Delivery Method Room Air 10/21/18 16:11 Oxygen Flow Rate 0 10/21/18 16:11 End Tidal Co2 34 10/20/18 12:39 Pain Level 0 10/21/18 16:11 Intake & Output 10/20/18 10/21/18 10/21/18 23:59 11:59 23:59 Intake Total 3100.0 / 3100.0 1541 / 1541 Output Total 700 / 1350 650 / 1350 Balance 3100.0 / 3100.0 841 / 191 -650 / 191 Weight 67.6 kg 66.5 kg Intake: IV 3100.0 / 3100.0 1101 / 1101 Oral 440 / 440 Output: Urine 700 / 1350 650 / 1350 Other: Urine Color Yellow [place] Urine Appearance Clear Clear Urine Odor Normal Normal Comment sp hyst left ovary removed at 30yrs old. No void at this time. sp hyst left ovary removed at 30yrs old. Pain with urination. Voiding pink bloody urine. U/A sent. Voiding Methods Bedside Commode Bedside Commode Laboratory Results WBC 12.23 k/cumm (4.4-10.8) H 10/21/18 07:10 RBC 3.70 m/cumm (4.00-5.20) L 10/21/18 07:10 Hgb 11.5 g/dL (12.0-15.5) L 10/21/18 07:10 Hct 34.3 % (36.0-46.0) L 10/21/18 07:10 MCV 92.7 fL (80-95) 10/21/18 07:10 MCH 31.1 pg (27.0-33.0) 10/21/18 07:10 MCHC 33.5 g/dL (32.0-36.0) 10/21/18 07:10 RDW 13.5 % (11.7-14.6) 10/21/18 07:10 Plt Count 288 x1000/uL (130-400) 10/21/18 07:10 MPV 9.2 fL (8.0-11.0) 10/21/18 07:10 Immature Gran % 0.3 10/21/18 07:10 Neutrophils % 63.0 10/21/18 07:10 Lymphocytes % 28.8 10/21/18 07:10 Monocytes % 6.4 10/21/18 07:10 Eosinophils % 1.2 10/21/18 07:10 Basophils % 0.3 10/21/18 07:10 Absolute Neutrophils 7.70 k/cumm (1.2-6.7) H 10/21/18 07:10 Absolute Lymphocytes 3.52 k/cumm (1.2-3.4) H 10/21/18 07:10 Absolute Monocytes 0.78 k/cumm (0.11-0.7) H 10/21/18 07:10 Absolute Eosinophils 0.15 k/cumm (0.0-0.7) 10/21/18 07:10 Absolute Basophils 0.04 k/cumm (0.0-0.2) 10/21/18 07:10 VBG pH 7.34 (7.32-7.43) 10/20/18 18:55 VBG pCO2 42 mm/Hg (34-47) 10/20/18 18:55 VBG pO2 37 mm/Hg (28-44) 10/20/18 18:55 VBG HCO3 23 mmol/L (22-28) 10/20/18 18:55 VBG Total CO2 21 mmol/L (22-29) L 10/20/18 18:55 VBG O2 Saturation 70 % (70-80) 10/20/18 18:55 VBG Base Excess -3.3 mmol/L (-3-3) L 10/20/18 18:55 Sodium 137 mmol/L (136-145) 10/21/18 07:10 Potassium 3.9 mmol/L (3.5-5.1) 10/21/18 07:10 Chloride 104 mmol/L (98-107) 10/21/18 07:10 Carbon Dioxide 25.7 mmol/L (21.0-32.0) 10/21/18 07:10 Anion Gap 7.3 mmol/L (3-11) 10/21/18 07:10 BUN 4 mg/dL (7-18) L 10/21/18 07:10 Creatinine 0.66 mg/dL (0.55-1.02) 10/21/18 07:10 Estimated GFR/1.73 m2 >= 60.00 (mL/min/1.73m2) 10/21/18 07:10 Glucose 143 mg/dL (70-100) H 10/21/18 07:10 Lactate 1.2 mmol/L (0.6-1.4) 10/21/18 14:15 Calcium 7.5 mg/dL (8.5-10.1) L 10/21/18 07:10 Magnesium 3.3 mg/dL (1.8-2.4) H 10/21/18 07:10 Total Bilirubin 0.5 mg/dL (0.2-1.0) 10/21/18 07:10 Conjugated Bilirubin 0.10 mg/dL (0.00-0.20) 10/21/18 07:10 AST 14 U/L (15-37) L 10/21/18 07:10 ALT 14 U/L (12-78) 10/21/18 07:10 Alkaline Phosphatase 86 U/L (46-116) 10/21/18 07:10 Troponin I < 0.02 ng/mL (0.00-0.06) 10/20/18 19:52 Total Protein 5.8 g/dL (6.4-8.2) L 10/21/18 07:10 Albumin 2.6 g/dL (3.4-5.0) L 10/21/18 07:10 TSH 0.52 uIU/mL (0.358-3.74) 10/21/18 07:10 Urine Color [place] (Yellow) 10/21/18 15:40 Urine Clarity Sl cloudy 10/21/18 15:40 Urine pH 8.0 (5-8) 10/21/18 15:40 Ur Specific [place] 1.020 (1.005-1.025) 10/21/18 15:40 Urine Protein 100 mg/dL (Negative) H 10/21/18 15:40 Urine Ketones Negative mg/dL (Negative) 10/21/18 15:40 Urine Blood Large (Negative) H 10/21/18 15:40 Urine Nitrite Negative (Negative) 10/21/18 15:40 Urine Bilirubin Negative (Negative) 10/21/18 15:40 Urine Urobilinogen 0.2 EU/dL (Up TO 0.2) 10/21/18 15:40 Ur Leukocyte Esterase Large (Negative) H 10/21/18 15:40 Urine RBC >50 (0-2) H 10/21/18 15:40 Urine WBC Not Applicable 10/21/18 15:40 Ur Epithelial Cells Not Applicable 10/21/18 15:40 Urine Crystals Not Applicable 10/21/18 15:40 Urine Bacteria Not Applicable 10/21/18 15:40 Urine Casts 0-2 hyaline LPF (Negative) 10/20/18 12:55 Urine Mucus Not Applicable 10/21/18 15:40 Ur Culture Indicated? Yes 10/21/18 15:40 Urine Glucose Negative mg/dL (Negative) 10/21/18 15:40 Salicylates 3.8 mg/dL (2.8-20.0) 10/20/18 12:55 Urine Opiates Screen Negative (Negative) 10/20/18 12:55 Urine Methadone Screen Negative (Negative) 10/20/18 12:55 Acetaminophen < 2 ug/mL (10-30) L 10/20/18 16:35 Ur Barbiturates Screen Negative (Negative) 10/20/18 12:55 Ur Tricyclics Screen Negative (Negative) 10/20/18 12:55 Ur Amphetamines Screen Positive (Negative) 10/20/18 12:55 U Benzodiazepines Scrn Negative (Negative) 10/20/18 12:55 Urine Cocaine Screen Negative (Negative) 10/20/18 12:55 Ur THC Screen Negative (Negative) 10/20/18 12:55 Ethyl Alcohol 46.5 mg/dL (<3) 10/20/18 18:55
[2018-10-22] VITALS (20 sets, daily range): BP systolic 99–125; BP diastolic 66–90; PULSE 74–97; RESP 14–26; TEMP 37.2–37.6; O2SAT 92–100
[2018-10-22] MEDS: Normal Saline 1,000 ML 150 ML IV ×2 (01:25→10:19)
[2018-10-22 06:39] LABS: Lactate-non-spesis 1.3 mmol/L (0.6-1.4)
[2018-10-22] MEDS: Enoxaparin 40 MG/0.4 ML SYR SC (10:05)
[2018-10-22] MEDS: Nicotine 14 MG/24 HR PATCH TD (10:05)
[2018-10-22] MEDS: Folic Acid 1 MG TAB PO (10:06)
[2018-10-22] MEDS: Multivitamin TAB 1 TAB PO (10:06)
[2018-10-22] MEDS: Thiamine 100 MG TAB PO (10:06)
--- NOTE | 2018-10-22 11:54 | MHPN_ITS ---
Date of service: 10/21/18 Time of Service: 12:02 Mental Health Crisis Note Presenting Issue How did you arrive at the ED and why did you come: Patient arrived yesterday evening due to an overdose following a visit she had with her at the custodial. Precipitating Factors Patient still states she wants to commit suicide. She expresses frustration with the people trying to stop this. However, she still is reporting she would participate in voluntary admission. She denies auditory and visual hallucinations and does not present with signs of thought disturbance, paranoia, or delusional thinking at this time. Disposition BEHAVIOR: depressed mood, lethargic movements EYE CONTACT: poor MOOD: depressed AFFECT: constricted/blunted APPETITE: good appetite SLEEP(trouble falling/staying asleep: heavily sedated, sleeping a lot at this time Plan Due to lethargic behavior and patient's inability to stay engaged in conversation from potential side effects that remain from overdose, Dr. Dia is recommending she have 24 more hours on intensive care unit. Hospitalization placement referrals have been completed at [facility] and [facility] at this time. Signature Clinician's Name/Title: Tj Bolaños MA [facility] 10-21-18
--- NOTE | 2018-10-22 11:59 | W.INMHPGNOTE ---
Date of service: 10/22/18 Time of Service: 12:00 Mental Health Crisis Note Presenting Issue How did you arrive at the ED and why did you come: Patient came to the hospital two nights ago after an overdose. She was admitted to the I.C.U. for observation. Precipitating Factors Patient still identifies having suicidal ideation. She is agreeing to treatment, but she reports wishing people would leave her alone. She has been cooperative with all service and treatment recommendations given at this time. She does not present with signs or symptoms of thought disturbance, paranoia, or delusional thinking. Disposition BEHAVIOR: Cooperative but still lethargic, reports being numb and is melancholic EYE CONTACT: fair MOOD: depressed AFFECT: blunted APPETITE: good SLEEP(trouble falling/staying asleep: still slightly sedated and numb/sleeping a lot Plan Patient intends to be admitted to a hospital today and is medically cleared by the doctor to do so. Patient has been accepted to the [facility] for psychiatric treatment. She will be transported by [facility]. Signature Clinician's Name/Title: Tj Bolaños MA [facility] [place][NOTE 2] [facility]
[2018-10-22] MEDS: Insulin Aspart 300 UNITS/3 ML PEN SC (12:00)
--- NOTE | 2018-10-22 13:12 | MHPN_ITS ---
Date of service: 10/22/18 Time of Service: 12:00 Mental Health Crisis Note Presenting Issue How did you arrive at the ED and why did you come: Patient came to the hospital two nights ago after an overdose. She was admitted to the I.C.U. for observation. Precipitating Factors Patient still identifies having suicidal ideation. She is agreeing to treatment, but she reports wishing people would leave her alone. She has been cooperative with all service and treatment recommendations given at this time. She does not present with signs or symptoms of thought disturbance, paranoia, or delusional thinking. Disposition BEHAVIOR: Cooperative but still lethargic, reports being numb and is melancholic EYE CONTACT: fair MOOD: depressed AFFECT: blunted APPETITE: good SLEEP(trouble falling/staying asleep: still slightly sedated and numb/sleeping a lot Plan Patient intends to be admitted to a hospital today and is medically cleared by the doctor to do so. Patient has been accepted to the [facility] for psychiatric treatment. She will be transported by [employer] Signature Clinician's Name/Title: Tj Bolaños MA [facility]
--- NOTE | 2018-10-22 15:39 | W.PM.DS.N ---
Date of service: 10/22/18 Time of Service: 15:39 DS: Diagnosis Discharge Diagnosis (1) Suicide attempt: Status: Acute (2) Intentional overdose of drug in tablet form: Status: Acute (3) Alcohol abuse: Status: Chronic (4) UTI (urinary tract infection): Status: Acute Discharge Plan Disposition Patient Disposition: OTHER Condition: Stable Discharge Details Reason For Visit: INTENTIONAL OVERDOSE/SUICIDE ATTEMPT Admit Date/Time: 10/20/18 21:50 Admit Provider: Allyson Burton Attending Provider: Allyson Burton [facility] Hospital Course: CC: Suicide Attempt, Ingestion HPI: 48 year old woman with a prior medical history significant for bipolar disorder, schizophrenia, and prior suicide attempts necessitating psychiatric hospitalizations, admitted from [facility] Emergency Department on 10/20 with a reported suicide attempt. Ms Hammer the prior medical history significant for bipolar disorder, schizophrenia, as well as a prior suicide attempt. She has been hospitalized in the past at a psychiatric facility for this. She also has a medical history of DM, HTN, and dyslipidemia. She was evaluated in the ED following an attempt to commit suicide by taking all of her pills that were there. She is noted to be on SSRI therapy, dextromethorphan/amphetamine, gabapentin, hydroxyzine, KAREY inhibitor, statin, metformin, NSAIDs, and ropinirole at home. She is also been reportedly drinking 2 large bottles of [place] Maurisio per day over the last few days. She denies any prior alcohol abuse, instead stating that she began drinking heavily 10 days ago. She was reportedly still suicidal and continued to want to end it all. She was reporting the reason as losing 1 of her dogs, and her who is to be incarcerated soon. In the ED the patient was initially found to be combative and had to be sedated with Versed. Poison control was contacted and all of her medications reviewed - thought that she may still be experiencing effects from either hydroxyzine, metformin, or gabapentin, with reported drowsiness and tachycardia as well as lactic acidosis as potential side effects. The patient was admitted for further observation until medically cleared to be hospitalized in a psychiatric facility. Following her admission all of her labwork appeared unremarkable. Her minimally elevated lactate quickly normalized. She was noted to have an abnormal appearing urine, and a subsequent urinalysis showed evidence of a UTI. She has remained afebrile, normotensive, not tachycardic, and not hypoxic. This morning she continues to have numerous complaints, but with a normal physical exam and without red flags. (1) Suicide attempt: Suicide attempt in patient with a prior history of suicidal ideation and suicide attempt, depression, bipolar, and schizophrenia. She has been hospitalized for this in the past. Currently still suicidal but remains a voluntary admission. She has been evaluated by mental health, and will do better with inpatient psychiatric hospitalization - now medically clear. Per review of records, ED physician spoke with poison control center at time of Ms. Hammer's admission, and it was felt that the majority of these medications, if truly taken, would have shown much greater symptoms than observed in the patient at time of presentation. Recommendation was made for monitoring for 24 hours in the ICU to make sure that her condition did not deteriorate. Her lactate normalized. She was on suicide precautions with a 1:1 Cadre and safety plan was observed as recommended by Care Managers and Mental Health. The patient was accepted at the [facility], and will be transferred today. Plan is to hold all of her medications for another day following discharge, and slowly reintroduce essential Rx according to the discretion of psych. Her metformin and Lisinopril may be held short-term without adverse effect. (2) Intentional overdose of drug in tablet form: As Above. (3) Alcohol abuse: No evidence of withdrawal - patient did not score significantly on the CIWA protocol. Of note, she reports that she only began drinking 'heavily' 10 days prior to her hospitalization. Her highest CIWA score was a 'one' - score for occasional mild headache or anxiety. No evidence of tremors, change in mental status, or vitals instability. (4) UTI (urinary tract infection): Evidence of UTI by urinalysis - Urine culture growing E.Coli, sensitivities not yet available. Initiated antibiotic therapy with ceftriaxone last evening - will be discharged with Cipro to conclude a 7 day course of antibiotic therapy for likely cystitis (suprapubic tenderness on exam and dysuria by history). (5) DM Metformin and minimal dose KAREY-I were held. Blood sugars minimally elevated only in the 100's with patient participating in 100% of her meals. (6) Disposition: Dscharge to [facility] - Accepting physician Dr. Ornelas. Home Meds and New Rx's Prescriptions: New ciprofloxacin HCl [Cipro] 500 mg tablet 500 mg PO BID 6 Days Qty: 12 RF: 0 Discontinued metformin 500 mg Tablet 1,000 mg PO BID RF: 0 citalopram 40 mg Tablet 40 mg PO DAILY RF: 0 qliqvegvuc-kugrqlbecqzpx-dmzf 50-325-40 mg Tablet 1 - 2 cap PO .Q6HRS PRNRF: 0 ropinirole 0.25 mg Tablet 1 tab PO .QHS RF: 0 ranitidine HCl 150 mg Tablet 150 mg PO BID RF: 0 dextroamphetamine-amphetamine 20 mg Tablet 20 mg PO BID RF: 0 gabapentin 100 mg Capsule 200 mg PO BID RF: 0 lovastatin 20 mg Tablet 20 mg PO DAILY RF: 0 lisinopril 2.5 mg Tablet 2.5 mg PO DAILY RF: 0 hydroxyzine pamoate 25 mg Capsule 3 cap PO .QHS PRNRF: 0 naproxen sodium 500 mg Tablet, Er Multiphase 24 Hr 500 mg PO BID RF: 0 Discharge Instructions Activity:: Activity as Tolerated Equipment/Supplies:: No Equipment Needed Diet:: Carb Counting Discharge Orders Discharge Orders: Discharge Order (Routine); Ordered 10/22/18 Ordered By: Tanner Edwards Exam Narrative Exam Narrative: General: Patient asleep but easily arousable. Oriented X3. NAD Neck: Supple CV: Regular, nontachycardic at time of exam, S1S2, No rubs, murmurs, or gallops. Pulmonary: Clear to auscultation bilaterally, no crackles, wheezing, or rhonchi Abdomen: + Bowel Sounds, soft, nondistended - minimal true tenderness in the suprapubic region with deep palpation, otherwise no rebound, no rigidity, no guarding. Vascular: No lower extremity edema Psych: Normal mood and affect. DS: Data Vitals/I&O Vitals and I&O: Vital Signs Temperature 37.4 C 10/22/18 04:20 Temperature Source Temporal Artery Scan 10/22/18 04:20 Pulse 83 10/22/18 14:00 Pulse 86 10/22/18 14:50 Respiratory Rate 16 10/22/18 14:50 Respiratory Effort Non-Labored 10/22/18 04:20 Respiratory Depth Normal 10/22/18 04:20 Respiratory Pattern Normal 10/22/18 04:20 Blood Pressure 125/73 10/22/18 14:00 Blood Pressure Mean 85 10/22/18 14:00 Blood Pressure Position Supine 10/21/18 08:40 Pulse Oximetry 98 10/22/18 14:50 Respiratory End-tidal CO2 28 10/20/18 16:10 Oxygen Delivery Method Room Air 10/22/18 00:15 Oxygen Flow Rate 0 10/22/18 00:15 End Tidal Co2 34 10/20/18 12:39 Pain Level 2 10/22/18 00:15 Intake & Output 10/21/18 10/22/18 10/22/18 23:59 11:59 23:59 Intake Total 1240 / 2781 1240 / 1240 Output Total 750 / 1450 200 / 200 Balance 490 / 1331 1040 / 1040 Weight 69.6 kg Intake: IV 1000 / 2101 1000 / 1000 Oral 240 / 680 240 / 240 Output: Urine 750 / 1450 200 / 200 Other: Urine Color [place] Urine Appearance Hematuria Urine Odor None Comment voided pink-red urine and c/o pain with the void Voiding Methods Bedside Commode Incontinent Completed studies during hospitalization [Text1]: Exam(s) a CT:CT head wo SYMPTOM/DIAGNOSIS: ALTERED MENTAL STATUS NONCONTRAST HEAD CT: No intracranial hemorrhage, mass or infarct was seen. There is no evidence of skull fracture. The ventricles are normal in size. The sinuses appear clear. IMPRESSION: Negative head CT --------- Exam(s) a RAD:XR portable chest AP SYMPTOM/DIAGNOSIS: R/O ASPIRATION PNEUMONIA PORTABLE CHEST: There are no prior comparison exams. The exam is limited by respiratory motion and poor pulmonary inflation. The heart size is normal. The lungs are grossly clear. Leads overlie the chest. IMPRESSION: Limited exam. No acute abnormality. --------- Labs on day of discharge: Labs from last 24 hours 10/22/18 10/21/18 06:15 15:40 Lactate 1.3 Urine Color [place] Urine Clarity Sl cloudy Urine pH 8.0 Ur Specific [place] 1.020 Urine Protein 100 H Urine Ketones Negative Urine Blood Large H Urine Nitrite Negative Urine Bilirubin Negative Urine Urobilinogen 0.2 Ur Leukocyte Esterase Large H Urine RBC >50 H Urine WBC Not Applicable Ur Epithelial Cells Not Applicable Urine Crystals Not Applicable Urine Bacteria Not Applicable Urine Mucus Not Applicable Ur Culture Indicated? Yes Urine Glucose Negative Preliminary micro results at discharge 10/21/18 15:40 Urine Culture - Preliminary Urine - Reflex from Escherichia coli [facility] Medical History Alcohol abuse (Chronic) Bipolar disorder (Chronic) Chronic headaches (Chronic) GERD (gastroesophageal reflux disease) (Chronic) Hyperlipidemia (Chronic) Hypertension (Chronic) Non-insulin dependent type 2 diabetes mellitus (Chronic) Schizophrenia (Chronic) Cervical cancer (Resolved) Suicide attempt (Resolved) Surgical History H/O: hysterectomy (Chronic) History of facial surgery (Chronic) S/P cholecystectomy (Chronic) Social History Smoking/Tobacco Use Status: Current every day tobacco type: cigarettes counseling given: provider counseling alcohol intake: current alcohol intake frequency: 3 or more drinks per day Alcohol type: hard liquor counseling given: Yes substance use type: does not use
--- NOTE | 2018-10-22 15:49 | PDOC.CMDIS ---
- If Service Date Differs Date of service: 10/22/18 Time of Service: 15:49 LACE Index Scoring Tool - Questions: Length of Stay (in days): 3 Acuity (Admit via E.D.?): Yes Comorbidities: Diabetes w/o Complication E.D. Visits: 1 - Answers: Total Score: 8 Risk of Readmission: Low Risk Care Management Discharge Reason for Hospitalization: SI/intentional overdose Discharge Plan: Raegan is being discharged to psychiatric facility for stabilization. Facility coordinated by [facility] [place]. CM coordinated transportation with [facility]. Raegan continues to be voluntary and is willing to be discharged to psychiatric facility. CM communicated plan to primary nurse, physician, and contacted psychiatric facility to confirm bed availability. CM faxed demographics, and insurance information to psychiatric facility. Patient/Family Education Needs: Discharge education, and transfer to psychiatric facility. Services Needed at Discharge: Psychiatric Facility, Transportation - MH Services (Omit if N/A) Current MH Services: [facility] Referred to Internal [facility] (ED embedded) child welfare caseworker?: Yes
--- NOTE | 2018-10-22 15:53 | CMDISCH_ITS ---
- If Service Date Differs Date of service: 10/22/18 Time of Service: 15:49 LACE Index Scoring Tool - Questions: Length of Stay (in days): 3 Acuity (Admit via E.D.?): Yes Comorbidities: Diabetes w/o Complication E.D. Visits: 1 - Answers: Total Score: 8 Risk of Readmission: Low Risk Care Management Discharge Reason for Hospitalization: SI/intentional overdose Discharge Plan: Raegan is being discharged to psychiatric facility for stabilization. Facility coordinated by [facility] [place]. CM coordinated transportation with [facility] [place]. Raegan continues to be voluntary and is willing to be discharged to psychiatric facility. MIKA communi cated plan to primary nurse, physician, and contacted psychiatric facility to confirm bed availability. CM faxed demographics, and insurance information to psychiatric facility. Patient/Family Education Needs: Discharge education, and transfer to psychiatric facility. Services Needed at Discharge: Psychiatric Facility, Transportation - MH Services (Omit if N/A) Current MH Services: [facility] Referred to [facility] (ED embedded) shoe caser?: Yes
== END 2018-10-22 16:45 | disposition other institution (70) | DRG 918 ==
LOC: ER 22:14 → ICU 10-21 06:51
PROVIDERS: Emergency Medicine; Admitting Provider Internal Medicine; Emergency Provider Physician Assistant; PCP Family Medicine; Visit Provider Internal Medicine
DX: T43.222A Poisoning by selective serotonin reuptake inhibitors, intentional self-harm, initial encounter (principal); E87.2 Acidosis; N39.0 Urinary tract infection, site not specified; R65.10 Systemic inflammatory response syndrome (SIRS) of non-infectious origin without acute organ dysfunction; T48.3X2A Poisoning by antitussives, intentional self-harm, initial encounter; T43.622A Poisoning by amphetamines, intentional self-harm, initial encounter; T42.6X2A Poisoning by other antiepileptic and sedative-hypnotic drugs, intentional self-harm, initial encounter; T43.592A Poisoning by other antipsychotics and neuroleptics, intentional self-harm, initial encounter; T46.5X2A Poisoning by other antihypertensive drugs, intentional self-harm, initial encounter; T46.6X2A Poisoning by antihyperlipidemic and antiarteriosclerotic drugs, intentional self-harm, initial encounter; T42.8X2A Poisoning by antiparkinsonism drugs and other central muscle-tone depressants, intentional self-harm, initial encounter; T38.3X2A Poisoning by insulin and oral hypoglycemic [antidiabetic] drugs, intentional self-harm, initial encounter; R40.0 Somnolence; R00.0 Tachycardia, unspecified; F31.9 Bipolar disorder, unspecified; F20.9 Schizophrenia, unspecified; Z91.5 Personal history of self-harm; E11.9 Type 2 diabetes mellitus without complications; I10 Essential (primary) hypertension; E78.1 Pure hyperglyceridemia; F10.10 Alcohol abuse, uncomplicated; B96.20 Unspecified Escherichia coli [E. coli] as the cause of diseases classified elsewhere; Z79.84 Long term (current) use of oral hypoglycemic drugs; K21.9 Gastro-esophageal reflux disease without esophagitis
CPT/HCPCS: 36415; 80048; 80053; 80076; 80307; 81025; 82805; 87077; 93005; 96361; 96365; 96375; 96376; 99223; 99232; 99238; 99285; J1650; 70450; 71045; 80320; 80329; 81003; 81015; 83605; 83735; 84443; 84484; 85025; 87086; 87186; 93010; J0696; J2060; J2405; J3475; J3480

== ENCOUNTER 2021-10-18 16:21 | Outpatient (REF) | payer MEDICARE, SELFPAY ==
[2021-10-20 11:42] LABS: COVID-19 RT-PCR UVMMC Result Negative (Negative)
== END 2021-10-18 16:22 | disposition home or self-care (01) ==
LOC: LBN 16:21
PROVIDERS: PCP Family Medicine; Visit Provider Physician Assistant
DX: J02.9 Acute pharyngitis, unspecified (principal); Z20.822 Contact with and (suspected) exposure to COVID-19
CPT/HCPCS: U0003; U0005; 87070

== ENCOUNTER 2021-12-26 13:46 | Outpatient (CLI) | payer MEDICARE, OTHER, SELFPAY ==
--- NOTE | 2021-12-26 15:48 | DI.RAD_ITS ---
Exam(s) XR KNEE RT 3V AP,LAT,ABRIL EXAM: XR KNEE RT 3V AP,LAT,ABRIL CLINICAL HISTORY: INSTABILITY OF RT KNEE JOINT, M25.561. TECHNIQUE: 2D digital imaging was performed. COMPARISON: No exams were available for comparison FINDINGS: 3 views There is no evidence of fracture nor prominent joint effusion. There is moderate narrowing of the me dial compartment as seen on the weight-bearing view. No marginal osteophytes. Lateral compartment e xhibits normal height. No osseous lesions. IMPRESSION: Moderate narrowing of the medial compartment. DATA REPOSITORY: RADIATION DOSE DELIVERED:
== END 2021-12-26 14:06 ==
PROVIDERS: PCP Family Medicine; Visit Provider Family Medicine
DX: M25.561 Pain in right knee (principal); M25.361 Other instability, right knee; M25.861 Other specified joint disorders, right knee
CPT/HCPCS: 73562

== ENCOUNTER 2022-01-12 01:04 | Outpatient (CLI) | payer MEDICARE, OTHER, MEDICAID, SELFPAY ==
--- NOTE | 2022-01-12 13:45 | DI.MRI_ITS ---
Exam(s) MR LOWER JOINT RT WO EXAM: MR LOWER JOINT RT WO CLINICAL HISTORY: INSTABILITY OF RT KNEE JT, M25.361. TECHNIQUE: Multiplanar multisequence MRI was performed. COMPARISON: CR XR KNEE RT 3V AP,LAT,ABRIL from 12/26/2021 FINDINGS: BONES: There is no fracture or contusion pattern. JOINTS: Articular cartilage is unremarkable. No effusion is present. TENDONS: Extensor mechanism: Unremarkable. Medial retinaculum: Unremarkable. Lateral retinaculum: Unremarkable. Popliteus: Unremarkable. MUSCLES: Unremarkable. MENISCI: There is abnormal signal seen in the body and posterior horn of the medial meniscus. The fi ndings are most consistent with a tear. The lateral meniscus is unremarkable. SOFT TISSUES: There is a small popliteal cyst. LIGAMENTS: Anterior Cruciate: Unremarkable. Posterior Cruciate: Unremarkable. Medial Collateral:Unremarkable. Lateral Collateral: Unremarkable. OTHER: IMPRESSION: Tear of the body and posterior horn of the medial meniscus. DATA REPOSITORY:
== END 2022-01-12 01:24 ==
PROVIDERS: PCP Family Medicine; Visit Provider Family Medicine
DX: M25.561 Pain in right knee (principal); M25.361 Other instability, right knee; M71.21 Synovial cyst of popliteal space [Baker], right knee; S83.241A Other tear of medial meniscus, current injury, right knee, initial encounter
CPT/HCPCS: 73721

== ENCOUNTER 2022-02-09 08:23 | Emergency (ER) | payer MEDICARE, OTHER, SELFPAY ==
[2022-02-09] VITALS (22 sets, daily range): BP systolic 119–158; BP diastolic 65–115; PULSE 80–100; RESP 12–23; TEMP 36.4–36.8; O2SAT 95–98
--- OUTSIDE RECORDS SUMMARY | 2022-02-09 08:29 | XMS_ITS ---
:1970 Author Care Team Providers Name Role Phone DR. HEATHER CUNHA Primary Care Provider [phone] DR. HEATHER CUNHA Referring Provider [phone] HEATHER CAI MD Primary Care Provider Unavailable HEATHER CUNHA Primary Care Provider [phone] Allergies Code Code System Name Reaction Severity Status Onset [id number] RxNorm Coconut Facial ? Active ? Swelling 7052 RxNorm Morphine Nausea ? Active ? Vomiting ? Active ? 174161 RxNorm Ritalin Nausea ? Active ? Vomiting ? Active ? NKDA ? Medications Name Status Start Date Stop Date ? ? bacitracin 500 unit/gram Active 08/05/2020 Not liyah ilable topical ointment Vaztewuexj-XTWM-Orxqxsvf 325 mg-40 mg-50 mg tablet Active 08/05/2020 Not available Take 2 tablets every 6 hours by oral route as needed. citalopram 40 mg tablet Active 08/05/2020 Not avai lable Take 1 tablet every day by oral route. clindamycin HCl 300 mg capsule Completed ? 0 03/17/2020 Take 1 capsule every 6 hours by oral route. dextroamphetamine-amphetamine 20 mg tablet Completed ? 03/17/2020 Take 1 tablet twice a day by oral route. Dulcolax (bisacodyl) 5 mg tablet,delayed release Active 08/05/2020 Not available Take 2 tablets twice a day by oral route as directed for 1 day. escitalopram 20 mg tablet Active 08/05/2020 Not av ailable Take 1 tablet every day by oral route. Flovent HFA 110 mcg/actuation aerosol inhaler Active Not available Inhale 1 puff twice a day by inhalation route. gabapentin 100 mg capsule Completed ? 2018 Take 2 capsules twice a day by oral route. gabapentin 300 mg capsule Active ? Not av ailable Take 1 capsule twice a day by oral route. glipizide 10 mg tablet Completed ? 0 Take 1 tablet every day by oral route. ibuprofen 800 mg tablet Active ? Not avai lable Take 1 tablet 3 times a day by oral route. Keflex 500 mg capsule Completed ? 07/14/2019 Take 1 capsule 3 times a day by oral route. ketoconazole 2 % shampoo Active 08/05/2020 Not liyah ilable Apply to the scalp, ears, rinse after 5 minutes, daily Lantus Solostar U-100 Insulin 100 unit/mL (3 mL) subcutaneou s pen Active 08/05/2020 Not available Inject 20 units every day by subcutaneous route at bedtime. lisinopril 2.5 mg tablet Active 08/05/2020 Not liyah ilable Take 1 tablet every day by oral route. lovastatin 20 mg tablet Active 08/05/2020 Not avai lable Take 1 tablet every day by oral route. magnesium 250 mg tablet Active 08/05/2020 Not avai lable Take by oral route. meloxicam 15 mg tablet Completed ? 1 Take 1 tablet every day by oral route as directed for 7 days. metformin 500 mg tablet Active 08/05/2020 Not avai lable Take 3 tablets in the morning and 2 tablets in the evening metoclopramide 10 mg tablet Active ? Not available take 1/2 tablet by mouth four times a day if needed metoclopramide 5 mg tablet Active ? Not a vailable take 1 tablet by mouth four times a day as directed Miralax 17 gram/dose oral powder Active 08/05/2020 Not available Take 238 g every day by oral route as directed for 1 day. montelukast 10 mg tablet Active 08/05/2020 Not liyah ilable Take 1 tablet every day by oral route. naproxen 500 mg tablet Completed ? 0 Take 1 tablet twice a day by oral route. ofloxacin 0.3 % eye drops Completed ? 2018 INSTILL 10 DROPs INTO AFFECTED EYE(S) BY OPHTHALMIC ROUTE once daily omeprazole 20 mg capsule,delayed release Completed ? 04/06/2020 Take 1 capsule every day by oral route. omeprazole 40 mg capsule,delayed release Active 020 Not available Take 1 capsule every day by oral route. prazosin 1 mg capsule Active 08/05/2020 Not availa ble Take 3 capsules every day by oral route at bedtime. Prevalite 4 gram powder for susp in a packet Active ? Not available take 1 packet by mouth three times a day before MEALS ProAir HFA 90 mcg/actuation aerosol inhaler Active 07/09 Not available Inhale 2 puffs every 4 hours by inhalation route as needed. Prozac 20 mg capsule Active 08/05/2020 Not availab le TAKE 1 CAPSUL EVERY ALONG WITH THE 40 MG CAPSULE Prozac 40 mg capsule Active 08/05/2020 Not availab le TAKE 1 CAPSULE (40 MG) BY ORAL ROUTE ON CE DAILY IN THE MORNING ALONG WITH THE 20 MG CAPSULE ranitidine 150 mg tablet Completed ? 019 Take 1 tablet twice a day by oral route. ropinirole 0.25 mg tablet Active 08/05/2020 Not av ailable Take 1 tablet every day by oral route at bedtime. ropinirole 1 mg tablet Active 08/05/2020 Not avail able Take 1 tablet every day by oral route. sucralfate 1 gram tablet Active 08/05/2020 Not liyah ilable take 1 tablet by mouth four times a day Thera Active 08/05/2020 Not available Vistaril 25 mg capsule Active 08/05/2020 Not avail able Take 3 capsules as needed by oral route at bedtime. Wellbutrin 100 mg tablet Completed ? 019 Take 1 tablet twice a day by oral route. Wellbutrin SR 100 mg tablet, 12 hr sustained-release Completed 04/06/2020 07/21/2020 Take 1 tablet every day by oral route. Wellbutrin SR 150 mg tablet, 12 hr sustained-release Active 08/05/2020 Not available Take 1 tablet twice a day by oral route. Problems Name Status Onset Date Source ? Type 2 Diabetes Mellitus Active 05/09/2018 ? Vitamin D Deficiency Active 05/09/2018 ? Hyperlipidemia Active 05/09/2018 ? Obesity Active 05/09/2018 ? Major Depressive Disorder Active 05/09/2018 ? Anxiety Active 05/09/2018 ? Alcohol Abuse Active 05/09/2018 ? Tobacco User Active 05/09/2018 ? Posttraumatic Stress Disorder Active 05/09/2018 ? Insomnia Active 05/09/2018 ? Chronic Pain Active 05/09/2018 ? Migraine Active 05/09/2018 ? Constipation Active 05/09/2018 ? Shoulder Pain Active 05/09/2018 ? Neck Pain Active 05/09/2018 ? Bunion Active 05/09/2018 ? 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 Attention Deficit Hyperactivity Disorder, Active 2017 ? Predominantly Inattentive Type Restless Legs Active ? ? Hypertensive Disorder Active ? ? Peripheral Venous Insufficiency Active ? ? Gastroesophageal Reflux Disease Active ? ? Procedures Date Name Performed by ? ? Oral Surgery Procedure Information not a vailable Notes: all teeth removed ? Hysterectomy Information not avai lable 05/14/2018 XR, Foot, 3 or More View [facility] - Radiology [address] [place] [id number] (Work Place) 07/21/2019 MRI, Upper Extremity Joint(s), W/o [facility] Contrast [address] [place], [place] [id number] (Work Place) 11/07/2019 CT, Chest, W/o Contrast [facility] Radiology [address] [place] [id number] (Work Place) Notes: CTR left,tumor removed ri ght hand and RCR right shoulder UTERINE CANCER Results Lab Results Date Name Specimen Result Interpretation Description Value Range Status Address ? 08/05/2020 Surgical ? No observation ? ? ? [facility] Pathology recorded. [facility] (Pathology ): [facility] Yordan Euceda 07/30/2020 SARS CoV 2 ? Upper nasophary ? Final [facility] RNA Respiratory ngeal Hospi feroz (COVID-19), Source Labor atory & QL, director stage-PCR, Path ology: Respiratory [facility] ? ? Normal Sars Cov-2 RNA not not Final C [facility] (Covid-19) detected detected Ho spital Laboratory & Pathology: [address] [place] [address] 05/28/2020 Creatinine, P Normal Creat 0.65 0.55-1.0 Final [facility] Serum or mg/dL 2 mg/dL [facility] Plasma Laboratory & Pathology: [address] [place] [address] ? ? P ? Egfrnaa 97.29 ? Final [facility] Laboratory & Pathology: [address] [place] [address] ? ? P ? Egfraa 117.91 ? Final [facility] Laboratory & Pathology: [address] [place] [address] 04/06/2020 Urease, Normal Clotest negative negative [facility] Qualitative, Hosp ital Tissue Laboratory & Pathology: [address] [place] [address] 04/06/2020 Surgical ? No observation ? ? ? [facility] Pathology recorded. [facility] (Pathology ): [facility] 11/20/2019 CMP, Serum P Normal Na 142 mEq/L 136-145 Final [facility] or Plasma mEq/L Hospita l Laboratory & Pathology: [address] [place] [address] ? ? P Normal K 4.0 mEq/L 3.5-5.1 [facility] Laboratory & Pathology: [address] [place] [address] ? ? P Normal Cl 103 mEq/L 98-107 Final [facility] mEq/L [facility] Laboratory & Pathology: [address] [place] [address] ? ? P Normal Co2 32 mEq/L 21-32 Final [facility] mEq/L [facility] Laboratory & Pathology: [address] [place] [address] ? ? P ? Agap 11.3 ? [facility] Laboratory & Pathology: [address] [place] [address] ? ? P Normal Glu 93.0 70.0-100 Final [facility] mg/dL .0 mg/dL [facility] Laboratory & Pathology: [address] [place] [address] ? ? P Normal Bun 8 mg/dL 7-18 Final [facility] mg/dL [facility] Laboratory & Pathology: [address] [place] [address] ? ? P Normal Creat 0.62 0.55-1.0 Final [facility] mg/dL 2 mg/dL [facility] Laboratory & Pathology: [address] [place] [address] ? ? P ? Bn/cr 12.4 ? [facility] Pathology: [address] [place] [address] ? ? P Normal Ca 8.9 mg/dL 8.5-10.1 [facility] Laboratory & Pathology: [address] [place] [address] ? ? P Normal Alkp 60 U/L 39-100 [facility] U[facility] Laboratory & Pathology: [address] [place] [address] ? ? P Normal Alt 34 U/L 14-59 [facility] Laboratory & Pathology: [address] [place] [address] ? ? P Normal Ast 19 U/L 15-37 Final [facility] U/L [facility] Laboratory & Pathology: [address] [place] [address] ? ? P Normal Tbil 0.3 mg/dL <=1.2 Final [facility] mg/dL [facility] Laboratory & Pathology: [address] [place] [address] ? ? P Normal Tp 7.1 g/dL 6.4-8.2 Final [facility] g/dL [facility] Laboratory & Pathology: [address] [place] [address] ? ? P Normal Alb 4.0 g/dL 3.4-5.0 Final [facility] g/dL [facility] Laboratory & Pathology: [address] [place] [address] ? ? P ? Glob 3.09 ? Final [facility] mg/dL [facility] Laboratory & Pathology: [address] [place] [address] ? ? P ? A/g 1.3 calc ? [facility] Laboratory & Pathology: [address] [place] [address] ? ? P ? Egfraa 125.05 ? Final [facility] Laboratory & Pathology: [address] [place] [address] ? ? P ? Egfrnaa 103.18 ? Final [facility] Laboratory & Pathology: [address] [place] [address] 11/20/2019 Iron + Total S Normal Fe 107 ug/dL 50-170 Isabela l [facility] Iron-binding ug/dL Hosp ital Capacity Laborato ry & (TIBC), Pathology : [address] [place] [address] ? ? S Normal Tibc 357 ug/dL 250-400 Final [facility] e ug/dL [facility] Laboratory & Pathology: [address] [place] [address] ? ? S ? Sat 30.0 % ? Final [facility] Laboratory & Pathology: [address] [place] [address] 11/20/2019 CBC W/ Auto WB Normal Wbc 10.8 4.8-10.8 Final [facility] Diff 10^3/mm^3 10^3/mm^ Hospi feroz 3 Laboratory & Pathology: [address] [place] [address] ? ? WB Normal Rbc 4.05 3.90-5.0 Final [facility] 10^6/mm^3 3 Hospita l 10^6/mm^ Laborato ry & 3 Pathology: [address] [place] [address] ? ? WB Normal Hgb 12.1 g/dL 12.0-15. Final [place] [facility] g/dL Hospital Laboratory & Pathology: [address] [place] [address] ? ? WB Normal Hct 39 % 36-46 % Final [facility] Laboratory & Pathology: [address] [place] [address] ? ? WB Normal Mcv 95.3 fL 81.0-99. Final [facility] 0 fL Hospital Laboratory & Pathology: [address] [place] [address] ? ? WB Low Mch 29.9 pg 33.0-36. Final [facility] 0 pg Hospital Laboratory & Pathology: [address] [place] [address] ? ? WB Low Mchc 31 g/dL 33-36 Final [facility] g/dL Hospital Laboratory & Pathology: [address] [place] [address] ? ? WB Normal Rdw 13.4 % 11.6-14. Final [facility] 8 % Hospital Laboratory & Pathology: [address] [place] [address] ? ? WB Normal Platelets 321 150-400 Final [place] 10^3/mm^3 10^3/mm^ Hospi feroz 3 Laboratory & Pathology: [address] [place] [address] ? ? WB Normal Ne# 5.82 1.20-6.7 Final [facility] 10^3/mm^3 0 Hospita l 10^3/mm^ Laborato ry & 3 Pathology: [address] [place] [address] ? ? WB High Ly# 4.04 1.20-3.4 Final [facility] 10^3/mm^3 0 Hospita l 10^3/mm^ Laborato ry & 3 Pathology: [address] [place] [address] ? ? WB Normal Mo# 0.68 0.11-0.7 Final [facility] 10^3/mm^3 0 Hospita l 10^3/mm^ Laborato ry & 3 Pathology: [address] [place] [address] ? ? WB Normal Eo# 0.24 0.00-0.7 Final [facility] 10^3/mm^3 0 Hospita l 10^3/mm^ Laborato ry & 3 Pathology: [address] [place] [address] ? ? WB Normal Ba# 0.04 0.00-0.2 Final [facility] 10^3/mm^3 0 Hospita l 10^3/mm^ Laborato ry & 3 Pathology: [address] [place] [address] ? ? WB Normal Neut% 54 % per 40-74 % Final [facility] 100 WBC per 100 Hospital WBC Laboratory & Pathology: [address] [place] [address] ? ? WB Normal Ly% 37 % per 19-48 % Final [facility] 100 WBC per 100 Hospital WBC Laboratory & Pathology: [address] [place] [address] ? ? WB Normal Mo% 6.3 % per 3.0-10.0 Final [place] 100 WBC % per Hospital 100 WBC Laborator y & Pathology: [address] [place] [address] ? ? WB Normal Eo% 2.2 % per 1.0-7.0 Final [place] [facility] 100 WBC % per Hospital 100 WBC Laborator y & Pathology: [address] [place] [address] ? ? WB Normal Ba% 0.4 % per 0.0-2.0 Final [place] [facility] 100 WBC % per Hospital 100 WBC Laborator y & Pathology: [address] [place] [address] 11/20/2019 MICHEL S Normal MICHEL Direct negative negative Isabela l [facility] (Antinuclear Hosp ital Antibodies) Labor atory & Panel, Serum Path ology: [address] [place] [address] 11/20/2019 Porphyrins, U Normal Uroporphyrins 8 ug/L undefin e Final [facility] 24-Hour (up) d ug/L [facility] Urine Laboratory & Pathology: [address] [place] [address] ? ? U Normal Uroporph(up),2 15 ug/24 0-24 Final [facility] 4HR HR ug/24 HR Hospital Laboratory & Pathology: [address] [place] [address] ? ? U Normal Heptacarboxyl 1 ug/L undefine Final [facility] (7-Cp) d ug/L Hospital Laboratory & Pathology: [address] [place] [address] ? ? U Normal Heptacarb(7-Cp 2 ug/24 0-4 Final [facility] ),24HR HR ug/24 HR Hospital Laboratory & Pathology: [address] [place] [address] ? ? U Normal Hexacarboxyl <1 ug/L undefine Final [facility] (6-Cp) d ug/L Hospital Laboratory & Pathology: [address] [place] [address] ? ? U Normal Hexacarb(6-Cp) <2 ug/24 0-1 Final [facility] ,24HR HR ug/24 HR Hospital Laboratory & Pathology: [address] [place] [address] ? ? U Normal Pentacarboxyl <1 ug/L undefine Final [facility] (5-Cp) d ug/L Hospital Laboratory & Pathology: [address] [place] [address] ? ? U Normal Pentacarb(5-Cp <2 ug/24 0-4 Final [facility] ),24HR HR ug/24 HR Hospital Laboratory & Pathology: [address] [place] [address] ? ? U Normal Coproporphyrin 13 ug/L undefine Final [facility] (Cp) I d ug/L Hospital Laboratory & Pathology: [address] [place] [address] ? ? U High coproporph(cp) 25 ug/24 0-24 Final [facility] I,24HR HR ug/24 HR Hospital Laboratory & Pathology: [address] [place] [address] ? ? U Normal Coproporphyrin 43 ug/L undefine Final [facility] (Cp) III d ug/L [facility] Laboratory & Pathology: [address] [place] [address] ? ? U High copropor(cp)II 82 ug/24 0-74 Final [facility] I,24HR HR ug/24 HR Hospital Laboratory & Pathology: [address] [place] [address] 11/20/2019 Please Note S ? Please Note comment ? F inal [facility] Laboratory & Pathology: [address] [place] [address] Past Encounters 01/27/2021 Internal Derangement of Right Knee; Body Mass Index 30+ - Obesity; Diabetes Mellitus Kalina Sosa MD: [address] [place] [phone], Ph. 01/24/2021 Sheldon Saab PA: [address] [place] [phone], Ph. 01/03/2021 Internal Derangement of Left Knee TEA Garcia: [address] [place] [phone], Ph. Social History Tobacco Smoking Status Never Smoker (1/2 pack per day) Vaccine List Vaccine Type Tdap 03/27/2013 Plan of Care Patient Instructions I told Raegan that where she has no t made any progress at all she still has a pretty significant antalgic gait arthroscopy may be her next best option. I discussed with her that I would just sugges t taking care of the meniscus at this ti me. I would not do anything with the anterior cruciate ligament. I would definitely rehab her afterward and see how she did. If she had some symptoms from that wh ich I do not believe she is having then we could deal with that at a later date. I am going to send her to see Dr. Faustin this to get her opinion. We will also have her use the crutches as he r gait is pretty antalgic and I do not w ant her to throw anything else out. She is in agreement. She will let me know if there is any questions or concerns. This note was created using [employer] voice recognition software. It was reviewed for major content. However, there may be multiple small discrepancies and errors due to the voice recognition aspects of the software. At this point her symptoms are extr eloina excessive from what I would expect. I am going to get her into a double upright brace just to provide her some stability. We will also get her on some crutc hes. She states she is walking on her ti ptoes as she can straighten the leg. This could potentially be from the meniscus but I would not expect her symptoms to be this severe. I am going to get her enro lled in some therapy just to see if we c an settle her discomfort down and get her mobility back. We can increase her gait and decrease the crutch use when she is able. If she has persistent symptoms aft er a few weeks she may be a candidate fo r arthroscopic intervention. I would not suggest anything with her ACL at this time. I am also going to start her on some meloxicam. She will take 15 mg once rodrigo y. She is going to discontinue use of e aspirin. I will see her back in 3 weeks for review. If there is any questions or concerns she will contact me. This note was created using [employer] voice recognition software. It was reviewed for major content. However, there may be multiple small discrepancies and errors due to the voice recognition aspects of the software. Reminders Provider Appointments None recorded. ? ? Lab None recorded. ? ? Referral None recorded. ? ? Procedures None recorded. ? ? Surgeries None recorded. ? ? Imaging None recorded. ? ? Vitals 01/27/2021 10:10AM ORTHO 20 FOLLOW UP Height 160.02 cm 01/24/2021 09:30AM ORTHO 20 FOLLOW UP Height 160.02 cm 01/03/2021 09:10AM ACUTE - ESTABLISHED Height Weight BMI 160.02 cm 98.61 kg 38.5 kg/m2 07/21/2020 11:00AM FOLLOW UP Height Weight BMI Blood Pressure 160.02 cm 94.71 kg 37 kg/m2 92/60 mm[Hg] 03/17/2020 02:30PM CONSULT Height Weight BMI Blood Pressure 160.02 cm 94.8 kg 37 kg/m2 126/82 mm[Hg] 12/01/2019 02:50PM ORTHO 20 FOLLOW UP Height 160.02 cm 11/20/2019 12:45PM Initial Consult DERM Height 160.02 cm 11/07/2019 10:50AM ACUTE - ESTABLISHED Height 160.02 cm 07/21/2019 12:30PM ORTHO 40 NEW PATIENT Height Weight BMI Blood Pressure 160.02 cm 89.45 kg 34.9 kg/m2 138/86 mm[Hg] 05/14/2018 01:15PM NEW PATIENT Height Weight BMI Blood Pressure 157.48 cm 73.48 kg 29.6 kg/m2 124/62 mm[Hg]
[2022-02-09 08:39] LABS: Bilirubin Negative (Negative); Blood Negative (Negative); Clarity Clear (Clear); Glucose 100 mg/dL (Negative); Ketones Trace mg/dL (Negative); Leukocyte Esterase Negative (Negative); Nitrite Negative (Negative); Specific Gravity >= 1.030 (1.005-1.025); Urobilinogen 0.2 EU/dL (Up TO 0.2); pH 6.5 (5-8)
[2022-02-09 08:58] LABS: Bacteria Negative HPF (Negative); C & S Indicated? No; Casts Negative LPF (Negative); Crystals Negative HPF (Negative); Epithelial Cells Few HPF (Negative); Mucus Trace (Negative); RBC 0-2 HPF (0-2)
--- NOTE | 2022-02-09 09:00 | DI.RAD_ITS ---
Exam(s) XR CHEST 1V IN DI DEPT EXAM: XR CHEST 1V IN DI DEPT CLINICAL HISTORY: epigastric pain. TECHNIQUE: 2D digital imaging was performed. COMPARISON: CR XR PORTABLE CHEST AP from 10/20/2018 FINDINGS: LUNGS: Clear. No pleural abnormality seen. HEART: Normal. MEDIASTINUM: Normal. OTHER FINDINGS: None. IMPRESSION: No acute pulmonary findings. DATA REPOSITORY: RADIATION DOSE DELIVERED: Total DLP
--- NOTE | 2022-02-09 09:00 | RT.EKG_ITS ---
APPROVED REPORT Exam: Resting ECG Reason for Exam: chest pain Patient Location: E HR:93 bpm ECG Measurements Heart Rate 93 AXIS RI 133 P 37 QRSd 85 QRS 47 QT 343 T -1 QTc 426 Conclusion Sinus rhythm...normal P axis, V-rate 60- 99 Consider anterior infarct...Q >30mS in V2-V5. Sinus. Normal axis. No STEMI. I have reviewed and interpreted ECG and agree with software generated interpretation.
--- NOTE | 2022-02-09 09:00 | DI.CT_ITS ---
Exam(s) CT ABDOMEN PELVIS WO EXAM: CT ABDOMEN PELVIS WO INDICATION: epigastric pain with radiation to back, vomiting. COMPARISON: No exams were available for comparison TECHNIQUE: CT examination was performed with oral contrast only period. FINDINGS: Images obtained through the lung bases are unremarkable. Visualized portions of the liver and splee n show no focal lesion however there is diffuse hepatic steatosis.. Visualized portions of the pancreas are unremarkable. Note is made of a prior cholecystectomy, bile ducts are CT normal. Abdominal aorta is of normal diameter. No significant abdominal wall hernia. No significant abdominal or pelvic adenopathy. Adrenals appear normal bilaterally. The kidneys are normal in size and shape. There is no evidence of a renal mass, hydronephrosis, or n ephrolithiasis. No ureteral dilatation or calcification identified. Urinary bladder is unremarkable in appearance. Appendix is normal. No evidence diverticulitis or bowel obstruction. The cecum lies to the right and anteriorly crossing the midline. However there is no evidence of cec al volvulus. There are few loops of small bowel which appear to be distal duodenum and proximal jejunum which show some wall thickening in the left upper quadrant. Possibility of enteritis is raised. IMPRESSION: Hepatic steatosis, prior cholecystectomy. Proximal small bowel wall thickening raises the possibility of enteritis, consider giardiasis. RADIATION DOSE DELIVERED: 1,179.94mGy.cm DLP 1,179.94mGy.cm Total DLP !Error CTDIvol RADIATION OPTIMIZATION: All CT scans at this facility use at least one of these dose optimization te chniques: automated exposure control; mA and/or kV adjustment per patient size (includes targeted exa ms where dose is matched to clinical indication); or iterative reconstruction.
[2022-02-09 09:18] LABS: Abs Immature Grans 0.06 10^3/uL (0.0-0.06); Absolute Basophil Count 0.05 10^3/uL (0.0-0.2); Absolute Eosinophil Count 0.15 10^3/uL (0.0-0.7); Absolute Lymphocyte Count 3.34 10^3/uL (1.2-3.4); Absolute Neutrophil Count 5.63 10^3/uL (1.2-6.7); Basophils % 0.5; Eosinophils % 1.5; HCT 37.2 % (36.0-46.0); HGB 12.3 g/dL (11.2-15.7); Immature Grans % 0.6; Lymphocytes % 34.3; MCH 30.5 pg (27.0-33.0); MCHC 33.1 % (32.0-36.0); MCV 92 fL (80-95); MPV 9.3 fL (8.0-11.0); Monocytes % 5.1; Platelet Count 332 10^3/uL (130-400); RBC 4.03 10^6/uL (3.93-5.22); RDW 12.7 % (11.7-14.6); WBC 9.73 10^3/uL (4.4-10.8)
[2022-02-09 09:19] LABS: BE (Venous) 1 mmol/L (-2-3); HCO3 (Venous) 26 mmol/L (23-28); O2 Sat (Venous) 92 %; TCO2 (Venous) 24 mmol/L (24-29); pCO2 (Venous) 44 mmHg (41-51); pH (Venous) 7.39 (7.31-7.41); pO2 (Venous) 64 mmHg
[2022-02-09] MEDS: Lactated Ringers 1,000 ML 1000 ML IV (09:23)
[2022-02-09] MEDS: Ondansetron 4 MG/2 ML VIAL IVP (09:24)
[2022-02-09] MEDS: fentaNYL 100 MCG/2 ML VIAL 75 MCG IVP (09:24)
[2022-02-09 09:44] LABS: ALT 32 U/L (14-59); AST 12 U/L (15-37); Albumin 3.5 g/dL (3.4-5.0); Alkaline Phosphatase 75 U/L (46-116); Anion Gap 7.3 mmol/L (3-11); BUN 14 mg/dL (7-18); Bilirubin, Total 0.2 mg/dL (0.2-1.0); CO2 27.7 mmol/L (21.0-32.0); CREATININE 0.7 mg/dL (0.55-1.02); Calcium 8.8 mg/dL (8.5-10.1); Chloride 103 mmol/L (98-107); Glucose 157 mg/dL (74-106); Lipase 52 U/L (73-393); Magnesium 1.5 mg/dL (1.8-2.4); Potassium 4.2 mmol/L (3.5-5.1); Sodium 138 mmol/L (136-145); Troponin I < 50 ng/L (<or=60)
[2022-02-09] MEDS: MAGNESIUM SULFATE 1 GM/100 ML BAG IVPB (10:09)
--- NOTE | 2022-02-09 10:53 | ED.GENADUL_ITS ---
Discharge Plan Disposition Patient Disposition: HOME Condition: Stable Discharge Details Clinical Impression: Abdominal pain Primary Care Provider: Yadiel Burden ED Provider: Jeannette Manzano Home Meds and New Rx's Prescriptions: New dicyclomine 20 mg tablet 20 mg PO TID PRN (Reason: abdominal pain) Qty: 10 0RF ondansetron 4 mg tablet,disintegrating 4 mg PO TID PRN (Reason: nausea and vomiting) Qty: 10 0RF Continued fluoxetine 40 mg Capsule 60 mg PO DAILY 0RF metformin 500 mg Tablet 1,000 mg PO .4PM 0RF metformin 500 mg Tablet 1,500 mg PO .QAM 0RF meloxicam [Mobic] 15 mg Tablet 15 mg PO DAILY 0RF omeprazole 40 mg Capsule,Delayed Release(Dr/Ec) 40 mg PO DAILY 0RF dextroamphetamine-amphetamine [Adderall] 20 mg Tablet 20 mg PO BID 0RF lisinopril 2.5 mg Tablet 2.5 mg PO DAILY 0RF bupropion HCl [Wellbutrin SR] 200 mg Tablet Sustained-Release 12 Hr 200 mg PO BID 0RF gabapentin 300 mg Tablet 300 mg PO TID 0RF Ozempic 0.25 mg or 0.5 mg(2 mg/1.5 mL) Pen Injector 0.5 mg SUBCUT .ONCE A WEEK 0RF fluticasone propionate 50 mcg/actuation Blister With Device INHALATION DAILY 0RF uoycmggyoi-sfoyibrkcolfn-qaev 50-325-40 mg Capsule 1 - 2 cap PO PRN0RF ondansetron HCl 8 mg Tablet 8 mg PO PRN0RF sucralfate [Carafate] 1 gram Tablet 1 g PO TID 0RF fluticasone propionate 110 mcg/actuation Hfa Aerosol Inhaler 1 puff INHALATION BID 0RF Discharge Instructions Instructions: Abdominal Pain (ED) Additional Instructions: Take Zofran as needed for nausea and vomiting Bentyl as needed for pain Refills important for reassessment and return earlier should you have persistent fever Please follow-up with your PCP in 24 to 48 hours for reassessment Referrals: Yadiel Burden [Primary Care Provider] - Discharge Data Discharge Date/Time-TO BE ENTERED AT DEPARTURE: 02/09/22 12:38 Medical Decision Making Patient appears well, she is feeling symptomatically improved and able to tolerate p.o. Her CT scan shows evidence of gastroenteritis but no other obvious abnormality Patient was given Toradol, Bentyl She also given materials to return a stool sample Patient otherwise is well in appearance She will need close outpatient follow-up with her PCP 48-72 hours Her magnesium was 1.5, this was supplemented with 1 g of magnesium Her EKG and troponin do not show acute abnormality and her symptoms have been present for the past 4 days return precautions discussed and pt expressed understanding Medical Records Medical records reviewed: Yes I reviewed the patient's medical records. Lab Data Lab results reviewed: Yes I reviewed the patient's lab results. ECG Data Prior ECG tracings: available for review HPI General Date/Time Provider Initiated Documentation: 02/09/22 08:47 . HPI Narrative: This 52-year-old female with history of diabetes, bipolar, schizophrenia presents for report of nausea and vomiting for the past several days followed by epigastric abdominal pain for the past 24 hours. She states it is worse with palpation and movement. She denies prior history of similar symptoms in the past. She does have a history of alcoholism but has not had any alcohol in the past 3 years per patient. She denies any chest pain or shortness of breath. She denies any dizziness or weakness. She denies any blood in her vomit. She is having normal bowel movements. She has had prior cholecystectomy and hysterectomy. She denies any recent surgeries. She denies any known sick contacts or exotic travel. She denies any recent antibiotic use. She has any illicit drug use. She does reportedly smoke tobacco. Blood sugar yesterday was 140 per patient. Related Data Home Medications Medication Instructions Recorded Confirmed bupropion HCl 200 mg tablet,12 hr 200 mg PO BID 02/09/22 02/09/22 sustained-release (Wellbutrin SR) [id number]-lpydbbuhslhqn-[id number] 1 - 2 cap PO PRN 02/09/22 50 mg-325 mg-40 mg capsule dextroamphetamine-amphetamine 20 20 mg PO BID 02/09/22 02/09/22 mg tablet (Adderall) dicyclomine 20 mg tablet 20 mg PO TID PRN #10 tab 02/09/22 fluoxetine 40 mg capsule 60 mg PO DAILY 02/09/22 02/09/22 fluticasone propionate 110 1 puff INHALATION BID 02/09/22 02/09/22 mcg/actuation HFA aerosol inhaler fluticasone propionate 50 INHALATION DAILY 02/09/22 mcg/actuation blister powder for inhalation gabapentin 300 mg tablet 300 mg PO TID 02/09/22 02/09/22 lisinopril 2.5 mg tablet 2.5 mg PO DAILY 02/09/22 02/09/22 meloxicam 15 mg tablet (Mobic) 15 mg PO DAILY 02/09/22 02/09/22 metformin 500 mg tablet 1,000 mg PO .4PM 02/09/22 02/09/22 metformin 500 mg tablet 1,500 mg PO .QAM 02/09/22 02/09/22 omeprazole 40 mg capsule,delayed 40 mg PO DAILY 02/09/22 02/09/22 release ondansetron 4 mg disintegrating 4 mg PO TID PRN #10 tab 02/09/22 tablet ondansetron HCl 8 mg tablet 8 mg PO PRN 02/09/22 semaglutide (Ozempic) 0.5 mg SUBCUT .ONCE A WEEK 02/09/22 02/09/22 sucralfate 1 gram tablet (Carafate) 1 g PO TID 02/09/22 02/09/22 Previous Rx's Medication Instructions Recorded dicyclomine 20 mg tablet 20 mg PO TID PRN #10 tab 02/09/22 ondansetron 4 mg disintegrating 4 mg PO TID PRN #10 tab 02/09/22 tablet Allergies Allergy/AdvReac Type Severity Reaction Status Date / Time bee venom protein (honey bee) Allergy Severe Anaphylaxsi Unverified 02/09/22 08:39 s strawberry Allergy Severe Anaphylaxsi Unverified 02/09/22 08:39 s morphine Allergy Intermediate Nausea Unverified 02/09/22 08:39 methylphenidate Allergy Unverified 02/09/22 08:58 [From Ritalin] coconut flavor Allergy Uncoded 02/09/22 08:59 General Stated Complaint: Abd Prob AKOSUA: 3 Review of Systems All systems reviewed & are unremarkable except as noted in HPI and below PFSH All Active Problems (Updated 02/09/22 @ 12:18 by TEA Nevarez) Abdominal pain (Acute) UTI (urinary tract infection) (Acute) Alcohol abuse (Chronic) SIRS (systemic inflammatory response syndrome) (Acute) Bipolar disorder (Chronic) Schizophrenia (Chronic) DVT prophylaxis (Acute) Discharge planning issues (Acute) GERD (gastroesophageal reflux disease) (Chronic) Intentional overdose of drug in tablet form (Acute) Suicide attempt (Acute) Depression (Chronic) Non-insulin dependent type 2 diabetes mellitus (Chronic) Hypertension (Chronic) Hyperlipidemia (Chronic) Medical History (Updated 02/09/22 @ 12:18 by TEA Nevarez) Alcohol abuse Bipolar disorder Cervical cancer Chronic headaches GERD (gastroesophageal reflux disease) Hyperlipidemia Hypertension Non-insulin dependent type 2 diabetes mellitus Schizophrenia Suicide attempt Surgical History H/O: hysterectomy History of facial surgery S/P cholecystectomy Social History Smoking/Tobacco Use Status: Current every day Tobacco Type: cigarettes Smoking packs per day: 1 Smoking cigarettes per day: 20.0 Counseling given: provider counseling Smoking risk assessment performed?: Yes Alcohol Intake: current Alcohol Intake frequency: holidays/special occasions only Alcohol type: hard liquor Counseling given: Yes Substance use type: does not use Exam Const General: cooperative and comfortable Orientation: alert and oriented x3 HENMT Other: Moist mucous membranes Resp Effort & Inspection: normal respiratory effort Auscultation: clear to auscultation bilaterally Cardio Rate: regular rate Rhythm: regular rhythm GI Inspection: normal to inspection Other: Tenderness with palpation No rebound or guarding no cva tenderness no abdominal bruit or pulsatile mass Skin General skin exam: no rashes or lesions noted Neuro General: patient alert and patient oriented x3 Course Vital Signs Vital signs: Vital Signs Temperature 36.4 C L 02/09/22 08:31 Pulse 91 H 02/09/22 08:31 Respiratory Rate 16 02/09/22 08:31 Blood Pressure 154/104 H 02/09/22 08:31 Pulse Oximetry 98 02/09/22 08:31 Temperature 36.8 C 02/09/22 09:47 Temperature Source Skin 02/09/22 09:47 Pulse 100 H 02/09/22 09:47 Respiratory Rate 15 02/09/22 09:47 Respiratory Effort 02/09/22 08:31 Blood Pressure 126/69 02/09/22 09:47 Blood Pressure Position Supine 02/09/22 08:31 Pulse Oximetry 97 02/09/22 09:47 Oxygen Delivery Method Room Air 02/09/22 09:47 Oxygen Flow Rate 0 02/09/22 09:47 Pain Level 8 02/09/22 09:49 Lab/Test Results Lab/Test Results: Laboratory Tests Range/Units 02/09/22 02/09/22 02/09/22 08:30 09:00 09:00 WBC (4.4-10.8) 10^3/uL 9.73 RBC (3.93-5.22) 10^6/uL 4.03 Hgb (11.2-15.7) g/dL 12.3 Hct (36.0-46.0) % 37.2 MCV (80-95) fL 92 MCH (27.0-33.0) pg 30.5 MCHC (32.0-36.0) % 33.1 RDW (11.7-14.6) % 12.7 Plt Count (130-400) 10^3/uL 332 MPV (8.0-11.0) fL 9.3 Immature Gran % 0.6 Neutrophils % 58.0 Lymphocytes % 34.3 Monocytes % 5.1 Eosinophils % 1.5 Basophils % 0.5 Nucleated RBC % (0.0-0.3) % 0.0 Absolute Neutrophils (1.2-6.7) 10^3/uL 5.63 Absolute Lymphocytes (1.2-3.4) 10^3/uL 3.34 Absolute Monocytes (0.1-0.8) 10^3/uL 0.50 Absolute Eosinophils (0.0-0.7) 10^3/uL 0.15 Absolute Basophils (0.0-0.2) 10^3/uL 0.05 VBG pH (7.31-7.41) VBG pCO2 (41-51) mmHg VBG pO2 mmHg VBG HCO3 (23-28) mmol/L VBG Total CO2 (24-29) mmol/L VBG O2 Saturation % VBG Base Excess (-2-3) mmol/L Sodium (136-145) mmol/L 138 Potassium (3.5-5.1) mmol/L 4.2 Chloride (98-107) mmol/L 103 Carbon Dioxide (21.0-32.0) mmol/L 27.7 Anion Gap (3-11) mmol/L 7.3 BUN (7-18) mg/dL 14 Creatinine (0.55-1.02) mg/dL 0.7 Estimated GFR/1.73 m2 (mL/min/1.73m2) >= 60.00 Glucose (74-106) mg/dL 157 H Calcium (8.5-10.1) mg/dL 8.8 Magnesium (1.8-2.4) mg/dL 1.5 L Total Bilirubin (0.2-1.0) mg/dL 0.2 AST (15-37) U/L 12 L ALT (14-59) U/L 32 Alkaline Phosphatase (46-116) U/L 75 Troponin I (<or=60) ng/L < 50 Total Protein (6.4-8.2) g/dL 7.0 Albumin (3.4-5.0) g/dL 3.5 Lipase (73-393) U/L 52 Urine Color (Yellow) Yellow Urine Clarity (Clear) Clear Urine pH (5-8) 6.5 Ur Specific [place] (1.005-1.025) >= 1.030 H Urine Protein (Negative) mg/dL 100 H Urine Ketones (Negative) mg/dL Trace H Urine Blood (Negative) Negative Urine Nitrite (Negative) Negative Urine Bilirubin (Negative) Negative Urine Urobilinogen (Up TO 0.2) EU/dL 0.2 Ur Leukocyte Esterase (Negative) Negative Urine RBC (0-2) HPF 0-2 Urine WBC (0-5) HPF 3-5 Ur Epithelial Cells (Negative) HPF Few Urine Crystals (Negative) HPF Negative Urine Bacteria (Negative) HPF Negative Urine Casts (Negative) LPF Negative Urine Mucus (Negative) Trace Ur Culture Indicated? No Urine Glucose (Negative) mg/dL 100 Range/Units 02/09/22 09:00 WBC (4.4-10.8) 10^3/uL RBC (3.93-5.22) 10^6/uL Hgb (11.2-15.7) g/dL Hct (36.0-46.0) % MCV (80-95) fL MCH (27.0-33.0) pg MCHC (32.0-36.0) % RDW (11.7-14.6) % Plt Count (130-400) 10^3/uL MPV (8.0-11.0) fL Immature Gran % Neutrophils % Lymphocytes % Monocytes % Eosinophils % Basophils % Nucleated RBC % (0.0-0.3) % Absolute Neutrophils (1.2-6.7) 10^3/uL Absolute Lymphocytes (1.2-3.4) 10^3/uL Absolute Monocytes (0.1-0.8) 10^3/uL Absolute Eosinophils (0.0-0.7) 10^3/uL Absolute Basophils (0.0-0.2) 10^3/uL VBG pH (7.31-7.41) 7.39 VBG pCO2 (41-51) mmHg 44 VBG pO2 mmHg 64 VBG HCO3 (23-28) mmol/L 26 VBG Total CO2 (24-29) mmol/L 24 VBG O2 Saturation % 92 VBG Base Excess (-2-3) mmol/L 1 Sodium (136-145) mmol/L Potassium (3.5-5.1) mmol/L Chloride (98-107) mmol/L Carbon Dioxide (21.0-32.0) mmol/L Anion Gap (3-11) mmol/L BUN (7-18) mg/dL Creatinine (0.55-1.02) mg/dL Estimated GFR/1.73 m2 (mL/min/1.73m2) Glucose (74-106) mg/dL Calcium (8.5-10.1) mg/dL Magnesium (1.8-2.4) mg/dL Total Bilirubin (0.2-1.0) mg/dL AST (15-37) U/L ALT (14-59) U/L Alkaline Phosphatase (46-116) U/L Troponin I (<or=60) ng/L Total Protein (6.4-8.2) g/dL Albumin (3.4-5.0) g/dL Lipase (73-393) U/L Urine Color (Yellow) Urine Clarity (Clear) Urine pH (5-8) Ur Specific [place] (1.005-1.025) Urine Protein (Negative) mg/dL Urine Ketones (Negative) mg/dL Urine Blood (Negative) Urine Nitrite (Negative) Urine Bilirubin (Negative) Urine Urobilinogen (Up TO 0.2) EU/dL Ur Leukocyte Esterase (Negative) Urine RBC (0-2) HPF Urine WBC (0-5) HPF Ur Epithelial Cells (Negative) HPF Urine Crystals (Negative) HPF Urine Bacteria (Negative) HPF Urine Casts (Negative) LPF Urine Mucus (Negative) Ur Culture Indicated? Urine Glucose (Negative) mg/dL
[2022-02-09] MEDS: Breeza Beverage 473 ML BTL PO ×2 (11:29→11:43)
[2022-02-09] MEDS: Gastrografin 120 ML BTL PO (11:43)
[2022-02-09] MEDS: FAMOTIDINE 20 MG in Normal Saline 100 ML 400 MG IVPB (11:46)
[2022-02-09] MEDS: Ketorolac 15 MG/ML VIAL IVP (12:21)
[2022-02-09] MEDS: Dicyclomine 20 MG TAB PO (12:22)
== END 2022-02-09 12:38 | disposition home or self-care (01) ==
PROVIDERS: Emergency Provider Physician Assistant; PCP Family Medicine
DX: R10.13 Epigastric pain (principal); R11.10 Vomiting, unspecified; M54.9 Dorsalgia, unspecified; R07.9 Chest pain, unspecified
CPT/HCPCS: 36415; 36416; 80053; 82805; 82962; 83690; 93005; 96361; 96365; 96367; 96375; 99285; 71045; 74176; 81003; 81015; 83735; 84484; 85025; 93010; 99284; J1885; J2405; J3010; J3475

== ENCOUNTER 2022-02-15 15:55 | Emergency (ER) | payer MEDICARE, MEDICAID, SELFPAY ==
[2022-02-15 16:05] VITALS: BP 163/92; PULSE 104; RESP 18; TEMP 37; O2SAT 99
--- NOTE | 2022-02-15 16:19 | ED.GENADUL_ITS ---
Discharge Plan Discharge Details Chief Complaint: Abd Prob Primary Care Provider: Yadiel Burden ED Provider: Chepe Browning Home Meds and New Rx's Prescriptions: No Action fluoxetine 40 mg Capsule 60 mg PO DAILY 0RF metformin 500 mg Tablet 1,000 mg PO .4PM 0RF metformin 500 mg Tablet 1,500 mg PO .QAM 0RF meloxicam [Mobic] 15 mg Tablet 15 mg PO DAILY 0RF omeprazole 40 mg Capsule,Delayed Release(Dr/Ec) 40 mg PO DAILY 0RF dextroamphetamine-amphetamine [Adderall] 20 mg Tablet 20 mg PO BID 0RF lisinopril 2.5 mg Tablet 2.5 mg PO DAILY 0RF bupropion HCl [Wellbutrin SR] 200 mg Tablet Sustained-Release 12 Hr 200 mg PO BID 0RF gabapentin 300 mg Tablet 300 mg PO TID 0RF Ozempic 0.25 mg or 0.5 mg(2 mg/1.5 mL) Pen Injector 0.5 mg SUBCUT .ONCE A WEEK 0RF adddbxwuhd-hsogtwxydbxwy-fsqq 50-325-40 mg Capsule 1 - 2 cap PO PRN0RF ondansetron HCl 8 mg Tablet 8 mg PO PRN0RF sucralfate [Carafate] 1 gram Tablet 1 g PO TID 0RF fluticasone propionate 110 mcg/actuation Hfa Aerosol Inhaler 1 puff INHALATION BID 0RF dicyclomine 20 mg tablet 20 mg PO TID PRN (Reason: abdominal pain) Qty: 10 0RF HPI General Date/Time Provider Initiated Documentation: 02/15/22 16:14 . HPI Narrative: 52-year-old presented to the emergency department with 1 week history of abdominal pain. She states she was seen last for the same abdominal pain that has not gotten better. The pain is localized periumbilically. He has not migrated anywhere. This has been associated with inability to tolerate p.o. and unquantified weight loss. She has been belching a lot. He has been vomiting daily. Bowel movements have been loose and greenish. She was actually seen in follow-up by her PCP couple days ago and the plan was to observe her at home. She endorses 1-1.2 fever today reason for which she came to the emergency department. She also states that for the past week she has been burping the smell of the erruptus taste like rotten eggs Her last colonoscopy was last year. She had 2 polyps removed that were not malignant. She also had an upper endoscopy that was unremarkable. Related Data Home Medications Medication Instructions Recorded Confirmed bupropion HCl 200 mg tablet,12 hr 200 mg PO BID 02/09/22 02/15/22 sustained-release (Wellbutrin SR) qvbrcqvlpy-gbpvkasuebtna-teqtxavs 1 - 2 cap PO PRN 02/09/22 50 mg-325 mg-40 mg capsule dextroamphetamine-amphetamine 20 20 mg PO BID 02/09/22 02/15/22 mg tablet (Adderall) dicyclomine 20 mg tablet 20 mg PO TID PRN #10 tab 02/09/22 02/15/22 fluoxetine 40 mg capsule 60 mg PO DAILY 02/09/22 02/15/22 fluticasone propionate 110 1 puff INHALATION BID 02/09/22 02/09/22 mcg/actuation HFA aerosol inhaler gabapentin 300 mg tablet 300 mg PO TID 02/09/22 02/15/22 lisinopril 2.5 mg tablet 2.5 mg PO DAILY 02/09/22 02/15/22 meloxicam 15 mg tablet (Mobic) 15 mg PO DAILY 02/09/22 02/15/22 metformin 500 mg tablet 1,000 mg PO .4PM 02/09/22 02/15/22 metformin 500 mg tablet 1,500 mg PO .QAM 02/09/22 02/15/22 omeprazole 40 mg capsule,delayed 40 mg PO DAILY 02/09/22 02/15/22 release ondansetron HCl 8 mg tablet 8 mg PO PRN 02/09/22 semaglutide (Ozempic) 0.5 mg SUBCUT .ONCE A WEEK 02/09/22 02/15/22 sucralfate 1 gram tablet (Carafate) 1 g PO TID 02/09/22 02/15/22 Previous Rx's Medication Instructions Recorded dicyclomine 20 mg tablet 20 mg PO TID PRN #10 tab 02/09/22 Allergies Allergy/AdvReac Type Severity Reaction Status Date / Time bee venom protein (honey bee) Allergy Severe Anaphylaxsi Unverified 02/15/22 16:10 s strawberry Allergy Severe Anaphylaxsi Unverified 02/15/22 16:10 s methylphenidate Allergy Unverified 02/15/22 16:10 [From Ritalin] morphine AdvReac Intermediate Nausea Unverified 02/15/22 16:12 coconut flavor Allergy Uncoded 02/15/22 16:10 General Stated Complaint: Abd Prob AKOSUA: 3 Review of Systems Narrative: Constitutional positive for malaise and fatigue. Positive for fever no chills. HEENT negative Cardiovascular no chest pain no palpitation Respiratory no cough or shortness of breath no wheezing GI see HPI negative MSK no myalgias or arthralgias Skin positive ecchymosis to the right arm where she had IV initiated last week. She is complaining of recurrent lupus-like rash Neuro no headaches, no focal weakness. No paresthesias Psych negative Endo no unquantified weight loss. Hematological negative Allergy negative PFSH All Active Problems (Updated 02/09/22 @ 12:18 by TEA Nevarez) Abdominal pain (Acute) UTI (urinary tract infection) (Acute) Alcohol abuse (Chronic) SIRS (systemic inflammatory response syndrome) (Acute) Bipolar disorder (Chronic) Schizophrenia (Chronic) DVT prophylaxis (Acute) Discharge planning issues (Acute) GERD (gastroesophageal reflux disease) (Chronic) Intentional overdose of drug in tablet form (Acute) Suicide attempt (Acute) Depression (Chronic) Non-insulin dependent type 2 diabetes mellitus (Chronic) Hypertension (Chronic) Hyperlipidemia (Chronic) Medical History (Updated 02/09/22 @ 12:18 by TEA Nevarez) Alcohol abuse Bipolar disorder Cervical cancer Chronic headaches GERD (gastroesophageal reflux disease) Hyperlipidemia Hypertension Non-insulin dependent type 2 diabetes mellitus Schizophrenia Suicide attempt Surgical History H/O: hysterectomy History of facial surgery S/P cholecystectomy Social History Smoking/Tobacco Use Status: Current every day Tobacco Type: cigarettes Smoking packs per day: 1 Smoking cigarettes per day: 20.0 Counseling given: provider counseling Smoking risk assessment performed?: Yes Alcohol Intake: current Alcohol Intake frequency: holidays/special occasions only Alcohol type: hard liquor Counseling given: Yes Drug use: Never Substance use type: does not use Do you feel safe at home: Yes Do you feel safe in your relationship?: Yes Exam Narrative Exam Narrative: Const General:?cooperative and comfortable, no acute distress anicteric Orientation:?alert and oriented x3 HEENT Moist mucous membranes Resp Effort & Inspection:?normal respiratory effort Auscultation:?clear to auscultation bilaterally Cardio Rate:?regular rate Rhythm:?regular rhythm GI Inspection:?normal to inspection Tenderness with palpation No rebound or guarding Back:no cva tenderness no abdominal bruit or pulsatile mass Skin General skin exam:?ecchymosis rt arm/elbow Neuro General:?patient alert and patient oriented x3 Course Clinical picture consistent with Giardiasis. Evaluated the emergency department today as follows unremarkable. Notably she has central abdomen. CAT scan from last week was reviewed. At this time I have asked her to provide stool samples. She will be started on Flagyl. Vital Signs Vital signs: Vital Signs Temperature 37.0 C 02/15/22 16:05 Pulse 104 H 02/15/22 16:05 Respiratory Rate 18 02/15/22 16:05 Blood Pressure 163/92 H 02/15/22 16:05 Pulse Oximetry 99 02/15/22 16:05 Temperature 37.0 C 02/15/22 16:05 Temperature Source Temporal Artery Scan 02/15/22 16:05 Pulse 104 H 02/15/22 16:05 Respiratory Rate 18 02/15/22 16:05 Respiratory Effort Non-Labored 02/15/22 16:08 Blood Pressure 163/92 H 02/15/22 16:05 Blood Pressure Position Sitting 02/15/22 16:05 Pulse Oximetry 99 02/15/22 16:05 Pain Level 9 02/15/22 16:05
[2022-02-15 16:39] LABS: Abs Immature Grans 0.07 10^3/uL (0.0-0.06); Absolute Basophil Count 0.07 10^3/uL (0.0-0.2); Absolute Eosinophil Count 0.17 10^3/uL (0.0-0.7); Absolute Monocyte Count 0.63 10^3/uL (0.1-0.8); Basophils % 0.6; Eosinophils % 1.4; HCT 40.3 % (36.0-46.0); HGB 13.3 g/dL (11.2-15.7); Immature Grans % 0.6; Lymphocytes % 35.4; MCV 91 fL (80-95); MPV 9.1 fL (8.0-11.0); Monocytes % 5.3; Neutrophils % 56.7; Platelet Count 357 10^3/uL (130-400); RBC 4.44 10^6/uL (3.93-5.22); RDW 12.8 % (11.7-14.6); RDW-SD 42.3 fL; WBC 11.82 10^3/uL (4.4-10.8)
[2022-02-15] MEDS: Normal Saline 1,000 ML 1000 ML IV (16:42)
[2022-02-15] MEDS: Normal Saline 100 ML (16:43)
[2022-02-15] MEDS: Famotidine 20 MG/2 ML VIAL IVP (16:43)
[2022-02-15] MEDS: Metoclopramide 10 MG/2 ML VIAL IVP (16:43)
[2022-02-15 16:44] LABS: Absolute Lymphocyte Count 4.18 10^3/uL (1.2-3.4)
[2022-02-15 17:04] LABS: ALT 33 U/L (14-59); AST 12 U/L (15-37); Albumin 3.6 g/dL (3.4-5.0); Alkaline Phosphatase 77 U/L (46-116); Anion Gap 11.5 mmol/L (3-11); BUN 16 mg/dL (7-18); Bilirubin, Total 0.3 mg/dL (0.2-1.0); C-Reactive Protein 0.65 mg/dL (0.0-0.3); CO2 27.5 mmol/L (21.0-32.0); CREATININE 0.8 mg/dL (0.55-1.02); Calcium 8.8 mg/dL (8.5-10.1); Chloride 99 mmol/L (98-107); Glucose 161 mg/dL (74-106); Lipase 33 U/L (73-393); Potassium 3.9 mmol/L (3.5-5.1); Sodium 138 mmol/L (136-145); Total Protein 7.5 g/dL (6.4-8.2)
[2022-02-15] MEDS: Ketorolac 15 MG/ML VIAL IVP (17:33)
[2022-02-15 17:34] LABS: Bilirubin Negative (Negative); Blood Negative (Negative); Clarity Clear (Clear); Glucose Negative (Negative); Ketones Negative (Negative); Leukocyte Esterase Negative (Negative); Nitrite Negative (Negative); Specific Gravity >= 1.030 (1.005-1.025); Urobilinogen 0.2 EU/dL (Up TO 0.2)
--- NOTE | 2022-02-15 17:39 | NUR.NOTE ---
there has been a reduction in pain since toradol has been given. JM
[2022-02-15] MEDS: metroNIDAZOLE 500 MG TAB PO (18:05)
[2022-02-15 18:14] VITALS: BP 132/78; PULSE 82; RESP 16; O2SAT 99
== END 2022-02-15 18:15 | disposition home or self-care (01) ==
PROVIDERS: Emergency Provider Emergency Medicine; PCP Family Medicine
DX: A07.1 Giardiasis [lambliasis] (principal); R10.9 Unspecified abdominal pain
CPT/HCPCS: 36415; 80053; 83690; 96361; 96374; 96375; 99284; 81003; 85025; 86140; J1885; J2765

== ENCOUNTER → 2022-02-16 14:36 | Outpatient (BNVA) | payer MEDICARE, MEDICAID, SELFPAY | PROVIDERS: PCP Family Medicine; Referring Provider Family Medicine; Visit Provider Surgery | DX: M79.604 Pain in right leg (principal); M79.605 Pain in left leg; R60.0 Localized edema | CPT/HCPCS: 99215; 99243 ==

== ENCOUNTER 2022-03-24 17:07 | Outpatient (REF) | payer MEDICARE, SELFPAY ==
[2022-03-27 15:30] LABS: COVID-19 RT-PCR UVMMC Result Negative (Negative)
== END 2022-03-24 17:08 | disposition home or self-care (01) ==
LOC: LBN 17:07
PROVIDERS: PCP Family Medicine; Visit Provider Physician Assistant
DX: Z20.822 Contact with and (suspected) exposure to COVID-19 (principal); R68.89 Other general symptoms and signs
CPT/HCPCS: U0003

== ENCOUNTER 2022-03-26 15:46 | Emergency (ER) | payer MEDICARE, MEDICAID, SELFPAY ==
[2022-03-26] VITALS (30 sets, daily range): BP systolic 128–164; BP diastolic 69–103; PULSE 84–107; RESP 12–26; TEMP 36.7; O2SAT 96–99
--- NOTE | 2022-03-26 16:00 | RT.EKG_ITS ---
APPROVED REPORT Exam: Resting ECG Reason for Exam: chest pain Patient Location: E HR:104 bpm ECG Measurements Heart Rate 104 AXIS MS 126 P 36 QRSd 82 QRS 40 QT 314 T -58 QTc 414 Conclusion Sinus tachycardia...rate> 99 Nonspecific repol abnormality, diffuse leads...ST dep, T flat/neg, ant/lat/inf
--- NOTE | 2022-03-26 16:30 | DI.CT_ITS ---
Exam(s) CT ABDOMEN PELVIS W EXAM: CT ABDOMEN PELVIS W CLINICAL HISTORY: abdominal pain upper TECHNIQUE: Imaging Protocol: Axial computed tomography images with coronal and sagittal reformatted images were created and reviewed CONTRAST MATERIAL: Intravenous: Omnipaque 350ml Contrast volume:100 mL Oral: No COMPARISON: CT CT ABDOMEN PELVIS WO from 02/09/2022 FINDINGS: ABDOMEN: Lung Bases: Mild dependent atelectasis. Liver: There is decreased attenuation of the liver suggesting fatty infiltration. The liver measures 21 cm long. No measurable mass. Portal, Superior Mesenteric, and Splenic Veins: Unremarkable. Gallbladder and Biliary Tract: Status post cholecystectomy. No biliary ductal dilatation. Pancreas: Normal density, no abnormal calcifications or inflammatory process. Spleen: Normal. Adrenals: No masses seen. Kidneys: Normal size, contour and axis. No radiodense stones or obstructive uropathy. No masses seen. Abdominal Aorta: Abdominal portion non-dilated. Mild atherosclerosis. Bowel: No obstruction or bowel wall thickening. No evidence of appendicitis. There is a small duoden al diverticulum adjacent to the pancreatic head. Peritoneal Cavity: No ascites, collection or mesenteric inflammatory response. No free air. Lymph Nodes: Within normal limits. Bones: Within normal limits for the patient's age. Soft Tissues: Unremarkable. PELVIS: Bladder: Symmetric distention, no gross wall thickening. Reproductive Organs: Status post hysterectomy. Lymph Nodes: Within normal limits. Bones: Within normal limits for the patient's age. IMPRESSION: No acute abdominal or pelvic process. RADIATION DOSE DELIVERED: 1,164.67mGy.cm Total DLP DATA REPOSITORY: All CT scans at this facility are submitted to the National Radiology Data Registry (NRDR) Dose Index Registry (DIR) with the [employer] ([employer]). RADIATION OPTIMIZATION: All CT scans at this facility use at least one of these dose optimization te chniques: automated exposure control; mA and/or kV adjustment per patient size (includes targeted exa ms where dose is matched to clinical indication); or iterative reconstruction.
--- NOTE | 2022-03-26 16:57 | ED.GENADUL_ITS ---
Discharge Plan Disposition Patient Disposition: HOME Condition: Stable Discharge Details Clinical Impression: Exacerbation of Crohn's disease, Abdominal pain, Nausea & vomiting, Diarrhea Primary Care Provider: Yadiel Burden ED Provider: Pool Lindsay Home Meds and New Rx's Prescriptions: New budesonide 3 mg capsule,delayed,extend.release 9 mg PO DAILY Qty: 84 0RF Continued ondansetron HCl 4 mg tablet 4 mg PO Q8H PRN (Reason: nausea and vomiting) Qty: 10 0RF dextroamphetamine-amphetamine [Adderall] 10 mg tablet 10 mg PO DAILY PRN Flovent HFA 110 mcg/actuation HFA aerosol inhaler 1 puff inhalation BID albuterol sulfate [ProAir HFA] 90 mcg/actuation HFA aerosol inhaler 2 puff inhalation Q6H PRN fluoxetine 40 mg Capsule 60 mg PO DAILY metformin 500 mg Tablet 1,000 mg PO .4PM metformin 500 mg Tablet 1,500 mg PO .QAM meloxicam [Mobic] 15 mg Tablet 15 mg PO DAILY omeprazole 40 mg Capsule,Delayed Release(Dr/Ec) 40 mg PO DAILY dextroamphetamine-amphetamine [Adderall] 20 mg Tablet 20 mg PO BID bupropion HCl [Wellbutrin SR] 200 mg Tablet Sustained-Release 12 Hr 200 mg PO BID gabapentin 300 mg Tablet 300 mg PO TID flpxvgtjiv-ltjuusazhhkbd-ncpm 50-325-40 mg Capsule 1 - 2 cap PO PRN PRN sucralfate [Carafate] 1 gram Tablet 1 g PO TID fluticasone propionate 110 mcg/actuation Hfa Aerosol Inhaler 1 puff INHALATION BID dicyclomine 20 mg tablet 20 mg PO TID PRN (Reason: abdominal pain) Qty: 10 0RF Ozempic 0.25 mg or 0.5 mg(2 mg/1.5 mL) pen injector 1 mg SUBCUT .ONCE A WEEK Discharge Instructions Instructions: Ondansetron (By mouth), Crohn Disease (ED), Acute Nausea and Vomiting (ED), Acute Diarrhea (ED) Additional Instructions: Please maintain a clear liquid diet today and tomorrow morning. You may advance to bland diet as discussed tomorrow evening as tolerated. Continue bowel rest for the next few days. Please contact your primary care physician to arrange follow-up. Please follow- up with sales superintendent. Return to the ER immediately for any worsening or new concerning symptoms. Stand Alone Forms: Work Release Referrals: Yadiel Burden [Primary Care Provider] - Medical Decision Making [id number]??52-year-old female with history of Crohn's, here with 5 days of upper abdominal pain, nausea vomiting, loose stool, and fatigue. Patient is tender to her upper abdomen. She is tachycardic. Consider Crohn's flare versus bowel perforation versus other surgical process. Plan to obtain CT abdomen pelvis. Consider pancreatitis we will check lipase. Pepcid IV I will give Pepcid IV. IV fluids for hypovolemia. -- Patient still having pain, will give toradol 15mg IV. -- CT the abdomen pelvis was interpreted by radiology: IMPRESSION: no acute findings Labs reviewed and nondiagnostic. Normal LFTs and normal lipase. She does have leukocytosis. Suspect crohns flare - bernice treat with budesnonide. We will start 9 mg/day for the next 4 weeks. Patient will then require taper. I will have her follow-up with her primary care physician and gastroenterology. Lab Data Lab results reviewed: Yes I reviewed the patient's lab results. Labs: Laboratory Tests Range/Units 03/26/22 03/26/22 17:15 17:15 WBC (4.4-10.8) 10^3/uL 13.90 H RBC (3.93-5.22) 10^6/uL 4.21 Hgb (11.2-15.7) g/dL 12.8 Hct (36.0-46.0) % 38.8 MCV (80-95) fL 92 MCH (27.0-33.0) pg 30.4 MCHC (32.0-36.0) % 33.0 RDW (11.7-14.6) % 12.8 Plt Count (130-400) 10^3/uL 363 MPV (8.0-11.0) fL 9.2 Immature Gran % 0.7 Neutrophils % 66.2 Lymphocytes % 25.3 Monocytes % 6.0 Eosinophils % 1.2 Basophils % 0.6 Nucleated RBC % (0.0-0.3) % 0.0 Absolute Neutrophils (1.2-6.7) 10^3/uL 9.20 H Absolute Lymphocytes (1.2-3.4) 10^3/uL 3.52 H Absolute Monocytes (0.1-0.8) 10^3/uL 0.83 H Absolute Eosinophils (0.0-0.7) 10^3/uL 0.17 Absolute Basophils (0.0-0.2) 10^3/uL 0.08 Sodium (136-145) mmol/L 143 Potassium (3.5-5.1) mmol/L 3.8 Chloride (98-107) mmol/L 105 Carbon Dioxide (21.0-32.0) mmol/L 25.6 Anion Gap (3-11) mmol/L 12.4 H BUN (7-18) mg/dL 9 Creatinine (0.55-1.02) mg/dL 0.8 Estimated GFR/1.73 m2 (mL/min/1.73m2) >= 60.00 Glucose (74-106) mg/dL 135 H Calcium (8.5-10.1) mg/dL 9.2 Total Bilirubin (0.2-1.0) mg/dL 0.2 AST (15-37) U/L 16 ALT (14-59) U/L 34 Alkaline Phosphatase (46-116) U/L 75 Total Protein (6.4-8.2) g/dL 7.2 Albumin (3.4-5.0) g/dL 3.5 Lipase (73-393) U/L 47 HPI General Mode of arrival: ambulatory . Date/Time Provider Initiated Documentation: 03/26/22 16:18 . Limitations to Documentation: no limitations . Information obtained by: patient . HPI Narrative: 52-year-old female with history of multiple medical problems including roa-ibhrbjh-fdmrlnyme diabetes, hypertension, hyperlipidemia, GERD, Crohn's disease, presents with chief complaint of abdominal pain. Patient notes that for the past 5 days she has had upper abdominal pain that has persisted. Pain is severe at times. Feels crampy. She has associated loose stool as well as nausea and vomiting. She has associated fatigue. Patient was seen at [facility] on Sunday and had stool samples ordered which have yet to be performed. Patient apparently was seen about a month ago for abdominal pain and found to have Giardia and was started on Flagyl Related Data Home Medications Medication Instructions Recorded Confirmed bupropion HCl 200 mg tablet,12 hr 200 mg PO BID 02/09/22 03/26/22 sustained-release (Wellbutrin SR) [id number]-hwecxpnsovsnl-bybzbfnu 1 - 2 cap PO PRN PRN 02/09/22 03/26/22 50 mg-325 mg-40 mg capsule dextroamphetamine-amphetamine 20 20 mg PO BID 02/09/22 03/26/22 mg tablet (Adderall) dicyclomine 20 mg tablet 20 mg PO TID PRN abdominal pain 02/09/22 03/26/22 #10 tabs fluoxetine 40 mg capsule 60 mg PO DAILY 02/09/22 03/26/22 fluticasone propionate 110 1 puff inhalation BID 02/09/22 03/26/22 mcg/actuation HFA aerosol inhaler gabapentin 300 mg tablet 300 mg PO TID 02/09/22 03/26/22 meloxicam 15 mg tablet (Mobic) 15 mg PO DAILY 02/09/22 03/26/22 metformin 500 mg tablet 1,000 mg PO .4PM 02/09/22 03/26/22 metformin 500 mg tablet 1,500 mg PO .QAM 02/09/22 03/26/22 omeprazole 40 mg capsule,delayed 40 mg PO DAILY 02/09/22 03/26/22 release sucralfate 1 gram tablet (Carafate) 1 g PO TID 02/09/22 03/26/22 albuterol sulfate 90 mcg/actuation 2 puff inhalation Q6H PRN 02/16/22 03/26/22 aerosol inhaler (ProAir HFA) dextroamphetamine-amphetamine 10 10 mg PO DAILY PRN 02/16/22 03/26/22 mg tablet (Adderall) fluticasone propionate 110 1 puff inhalation BID 02/16/22 03/26/22 mcg/actuation HFA aerosol inhaler (Flovent HFA) semaglutide 0.25 mg or 0.5 mg (2 1 mg subcut .ONCE A WEEK 02/16/22 03/26/22 mg/1.5 mL) subcutaneous pen injector (Ozempic) ondansetron HCl 4 mg tablet 4 mg PO Q8H PRN nausea and 03/24/22 03/26/22 vomiting #10 tabs budesonide 3 mg 9 mg PO DAILY #84 caps 03/26/22 capsule,delayed,extended release Previous Rx's Medication Instructions Recorded dicyclomine 20 mg tablet 20 mg PO TID PRN abdominal pain 02/09/22 #10 tabs ondansetron HCl 4 mg tablet 4 mg PO Q8H PRN nausea and 03/24/22 vomiting #10 tabs budesonide 3 mg 9 mg PO DAILY #84 caps 03/26/22 capsule,delayed,extended release Allergies Allergy/AdvReac Type Severity Reaction Status Date / Time bee venom protein (honey bee) Allergy Severe Anaphylaxsi Unverified 03/26/22 18:06 s strawberry Allergy Severe Anaphylaxsi Unverified 03/26/22 18:06 s methylphenidate Allergy Unverified 03/26/22 18:06 [From Ritalin] morphine AdvReac Intermediate Nausea Unverified 03/26/22 18:06 coconut flavor Allergy Uncoded 03/26/22 18:06 General Stated Complaint: Abd Prob AKOSUA: 3 Review of Systems Constitutional Constitutional: Denies fever(s) Gastrointestinal Gastrointestinal: Reports as per HPI, Denies melena, Denies hematochezia and Reports loose stools Comments: Patient does note that chest pain does migrate superiorly PFSH All Active Problems (Updated 03/26/22 @ 19:17 by Pool Lindsay MD) Exacerbation of Crohn's disease (Acute) Abdominal pain (Acute) Nausea & vomiting (Acute) Diarrhea (Acute) Bilateral lower extremity edema (Acute) Lower extremity pain (Acute) UTI (urinary tract infection) (Acute) Alcohol abuse (Chronic) SIRS (systemic inflammatory response syndrome) (Acute) Bipolar disorder (Chronic) Schizophrenia (Chronic) DVT prophylaxis (Acute) Discharge planning issues (Acute) GERD (gastroesophageal reflux disease) (Chronic) Intentional overdose of drug in tablet form (Acute) Suicide attempt (Acute) Depression (Chronic) Non-insulin dependent type 2 diabetes mellitus (Chronic) Hypertension (Chronic) Hyperlipidemia (Chronic) Medical History Alcohol abuse Bipolar disorder Cervical cancer Cervicalgia Chronic headaches Constipation Depressive disorder TIMOTHY (generalized anxiety disorder) GERD (gastroesophageal reflux disease) Hyperlipidemia Hypertension Non-insulin dependent type 2 diabetes mellitus Obesity Persistent insomnia PTSD (post-traumatic stress disorder) Keen syndrome Schizophrenia Shoulder pain Suicide attempt Tobacco abuse Vitamin D deficiency Surgical History H/O: hysterectomy (~07/08/04) History of facial surgery S/P cholecystectomy Social History Smoking/Tobacco Use Status: Current every day Tobacco Type: cigarettes Smoking packs per day: 1 Smoking cigarettes per day: 20.0 Counseling given: provider counseling Smoking risk assessment performed?: Yes Alcohol Intake: current Alcohol Intake frequency: holidays/special occasions only Alcohol type: hard liquor Counseling given: Yes Drug use: Never Substance use type: does not use Current gender identity: female Do you feel safe at home: Yes Do you feel safe in your relationship?: Yes Exam Const General: cooperative and no acute distress HENMT Mouth: mucous membranes dry Eyes Conjunctivae: normal conjunctivae Sclera: normal sclerae Resp Auscultation: clear to auscultation bilaterally, no rales, no rhonchi and no wheezes Cardio Rate: regular rate and not tachycardic Rhythm: regular rhythm GI Palpation: soft, not firm, no guarding, no masses, not rigid and tender in the epigastrum Auscultation: hypoactive bowel sounds Skin General skin exam: no rashes or lesions noted Neuro General: patient alert, patient awake and tone normal Extrem General: no edema Psych Appearance: grossly normal Mental Status: mental status grossly normal Speech and Movement: speech and movement normal Course Vital Signs Vital signs: Vital Signs Temperature 36.7 C 03/26/22 16:09 Pulse 107 H 03/26/22 16:09 Respiratory Rate 18 03/26/22 16:09 Blood Pressure 142/82 H 03/26/22 16:09 Pulse Oximetry 98 03/26/22 16:09 Temperature 36.7 C 03/26/22 16:09 Temperature Source Temporal Artery Scan 03/26/22 16:09 Pulse 107 H 03/26/22 16:09 Respiratory Rate 18 03/26/22 16:09 Blood Pressure 142/82 H 03/26/22 16:09 Blood Pressure Position Sitting 03/26/22 16:09 Pulse Oximetry 98 03/26/22 16:09 Oxygen Delivery Method Room Air 03/26/22 16:09 Oxygen Flow Rate 0 03/26/22 16:09 Pain Level 10 03/26/22 16:09
[2022-03-26] MEDS: FAMOTIDINE 20 MG in Normal Saline 100 ML 400 MG IVPB (17:12)
[2022-03-26 17:27] LABS: Absolute Lymphocyte Count 3.52 10^3/uL (1.2-3.4); Absolute Monocyte Count 0.83 10^3/uL (0.1-0.8); Basophils % 0.6; Eosinophils % 1.2; HCT 38.8 % (36.0-46.0); HGB 12.8 g/dL (11.2-15.7); Immature Grans % 0.7; Lymphocytes % 25.3; MCH 30.4 pg (27.0-33.0); MCV 92 fL (80-95); MPV 9.2 fL (8.0-11.0); Neutrophils % 66.2; Platelet Count 363 10^3/uL (130-400); RBC 4.21 10^6/uL (3.93-5.22); RDW 12.8 % (11.7-14.6); RDW-SD 43.4 fL
[2022-03-26 17:30] LABS: Absolute Basophil Count 0.08 10^3/uL (0.0-0.2); Absolute Eosinophil Count 0.17 10^3/uL (0.0-0.7)
[2022-03-26 17:43] LABS: ALT 34 U/L (14-59); AST 16 U/L (15-37); Albumin 3.5 g/dL (3.4-5.0); Alkaline Phosphatase 75 U/L (46-116); Anion Gap 12.4 mmol/L (3-11); BUN 9 mg/dL (7-18); Bilirubin, Total 0.2 mg/dL (0.2-1.0); CO2 25.6 mmol/L (21.0-32.0); CREATININE 0.8 mg/dL (0.55-1.02); Calcium 9.2 mg/dL (8.5-10.1); Chloride 105 mmol/L (98-107); Glucose 135 mg/dL (74-106); Lipase 47 U/L (73-393); Potassium 3.8 mmol/L (3.5-5.1); Sodium 143 mmol/L (136-145); Total Protein 7.2 g/dL (6.4-8.2)
[2022-03-26] MEDS: Lactated Ringers 1,000 ML 1000 ML IV (18:00)
[2022-03-26] MEDS: Normal Saline Flush 10 ML SYR IVP (18:01)
[2022-03-26] MEDS: Omnipaque 350 MG/ML 100 ML BTL IJ (18:04)
[2022-03-26] MEDS: Ketorolac 15 MG/ML VIAL IVP (18:32)
--- NOTE | 2022-03-26 18:45 | DI.VRAD_ITS ---
PROCEDURE INFORMATION: Exam: CT Abdomen And Pelvis With Contrast Exam date and time: 03/26/2022 18:00 Age: 52 years old Clinical indication: Other: Abdominal pain upper TECHNIQUE: Imaging protocol: Computed tomography of the abdomen and pelvis with contrast. Radiation optimization: All CT scans at this facility use at least one of these dose optimization techniques: automated exposure control; mA and/or kV adjustment per patient size (includes targeted exams where dose is matched to clinical indication); or iterative reconstruction. Contrast material: OMNIPAQUE 350; Contrast volume: 100 ml; Contrast route: INTRAVENOUS (IV); COMPARISON: CT ABDOMEN PELVIS WO 02/09/2022 11:24 FINDINGS: Liver: Fatty liver with no mass lesions. Hepatomegaly. Gallbladder and bile ducts: Cholecystectomy. No significant biliary dilation or radiopaque stones in the biliary tree. Pancreas: No ductal dilation. No masses. Spleen: No splenomegaly or focal lesions. Adrenal glands: No mass. Kidneys and ureters: No renal masses or hydronephrosis bilaterally. Stomach and bowel: Benign appearing duodenal diverticulum. Scattered minor colonic diverticula. No convincing wall thickening for the degree of distention of the colon. No focal pathology in the small bowel. Appendix: No evidence of appendicitis. Intraperitoneal space: No free air. No significant fluid collection. Vasculature: No abdominal aortic aneurysm. Lymph nodes: No significantly enlarged lymph nodes. Urinary bladder: Unremarkable as visualized. Reproductive: Hysterectomy. Bones/joints: No acute fracture. Soft tissues: No suspicious lesions. IMPRESSION: 1. No acute findings. 2. Incidental findings as described. Dictated and Authenticated by: Gaby Allen MD. Ordering:SHADIA Lanza MD
[2022-03-26] MEDS: Ondansetron O.D.T. 4 MG TABEF, 3 TABS/BTL PO (19:41)
== END 2022-03-26 19:50 | disposition home or self-care (01) ==
PROVIDERS: Emergency Provider Student in an Organized Health Care Education/Training Program; PCP Family Medicine
DX: K50.90 Crohn's disease, unspecified, without complications (principal); R11.2 Nausea with vomiting, unspecified; R19.7 Diarrhea, unspecified; R07.9 Chest pain, unspecified; R00.0 Tachycardia, unspecified
CPT/HCPCS: 80053; 83690; 93005; 96361; 96374; 96375; 99285; 74177; 85025; 93010; 99284; J1885; J3490

== ENCOUNTER 2022-03-26 18:45 | Outpatient (REF) | payer MEDICARE, SELFPAY ==
[2022-03-27 23:27] LABS: Campylobacter PCR Negative (Negative); Salmonella PCR Negative (Negative); Shiga Toxin PCR Negative (Negative); Shigella/Enteroinvasive Ecoli Negative (Negative)
== END 2022-03-26 18:46 | disposition home or self-care (01) ==
LOC: LBN 18:45
PROVIDERS: PCP Family Medicine; Visit Provider Physician Assistant
DX: R10.9 Unspecified abdominal pain (principal); R19.7 Diarrhea, unspecified
CPT/HCPCS: 87505

== ENCOUNTER 2022-05-01 16:04 | Outpatient (REF) | payer MEDICARE, MEDICAID, SELFPAY ==
[2022-05-03 11:20] LABS: COVID-19 RT-PCR UVMMC Result Negative (Negative)
== END 2022-05-01 16:05 | disposition home or self-care (01) ==
LOC: LBN 16:04
PROVIDERS: PCP Family Medicine; Visit Provider Nurse Practitioner Family
DX: U07.1 COVID-19 (principal)
CPT/HCPCS: U0003

== ENCOUNTER 2023-07-02 16:43 | Emergency (ER) | payer MEDICARE, SELFPAY ==
[2023-07-02 16:53] VITALS: BP 141/88; PULSE 117; RESP 20; TEMP 36.8; O2SAT 97
[2023-07-02 17:46] LABS: Abs Immature Grans 0.09 10^3/uL (0.0-0.06); HCT 38.8 % (36.0-46.0); MCHC 33.5 % (32.0-36.0); MCV 89 fL (80-95); MPV 9.5 fL (8.0-11.0); Platelet Count 321 10^3/uL (130-400); RBC 4.34 10^6/uL (3.93-5.22); RDW 12.2 % (11.7-14.6); RDW-SD 40.6 fL; WBC 15.06 10^3/uL (4.4-10.8)
[2023-07-02 17:53] LABS: Bilirubin Negative (Negative); Blood Negative (Negative); Clarity Clear (Clear); Glucose 500 mg/dL (Negative); Ketones Negative (Negative); Leukocyte Esterase Negative (Negative); Nitrite Negative (Negative); Specific Gravity >= 1.030 (1.005-1.025); Urobilinogen 0.2 mg/dL (Up to 0.2); pH 5.5 (5-8)
[2023-07-02 17:56] LABS: Magnesium 1.4 mg/dL (1.8-2.4)
--- NOTE | 2023-07-02 18:00 | DI.CT_ITS ---
Exam(s) CT ABDOMEN PELVIS W EXAM: CT ABDOMEN PELVIS W CLINICAL HISTORY: diffuse abd pain, epigastric and RLQ TTP TECHNIQUE: Imaging Protocol: Axial computed tomography images with coronal and sagittal reformatted images were created and reviewed CONTRAST MATERIAL: Intravenous: Omnipaque 350 Contrast volume:100 mL Oral: No COMPARISON: CT CT ABDOMEN PELVIS WO from 02/09/[address] ABDOMEN PELVIS W from 03/26/2022 FINDINGS: ABDOMEN: Lung Bases: Normal where visualized. Liver: Normal density. No measurable mass. Portal, Superior Mesenteric, and Splenic Veins: Unremarkable. Gallbladder and Biliary Tract: Status post cholecystectomy. No significant biliary ductal dilatation . Pancreas: Normal density, no abnormal calcifications or inflammatory process. Spleen: Normal. Adrenals: No masses seen. Kidneys: Normal size, contour and axis. There is a 2 mm nonobstructing stone in the superior pole of the left kidney. No masses seen. Abdominal Aorta: Abdominal portion non-dilated. Atherosclerosis. Bowel: No obstruction or bowel wall thickening. There is no evidence of appendicitis. There is an ai r-fluid collection adjacent to the pancreatic head arising from the duodenum. This likely represents a duodenal diverticulum. Peritoneal Cavity: No ascites, collection or mesenteric inflammatory response. No free air. Lymph Nodes: Within normal limits. Bones: Within normal limits for the patient's age. Soft Tissues: Unremarkable. PELVIS: Bladder: There is diffuse thickening of the wall of the urinary bladder. Reproductive Organs: Status post hysterectomy. Lymph Nodes: Within normal limits. Bones: Within normal limits for the patient's age. IMPRESSION: 1. No acute abdominal or pelvic process. 2. Normal appendix. 3. Probable duodenal diverticulum adjacent to the head of the pancreas. Duodenal ulcer considered le ss likely. RADIATION DOSE DELIVERED: 872.97mGy.cm Total DLP DATA REPOSITORY: All CT scans at this facility are submitted to the National Radiology Data Registry (NRDR) Dose Index Registry (DIR) with the [employer] ([employer]). RADIATION OPTIMIZATION: All CT scans at this facility use at least one of these dose optimization te chniques: automated exposure control; mA and/or kV adjustment per patient size (includes targeted exa ms where dose is matched to clinical indication); or iterative reconstruction.
[2023-07-02 18:05] LABS: HCG Quant, Pregnancy 8 mIU/mL (1-3)
[2023-07-02 18:14] LABS: ALT 28 U/L (14-59); AST 14 U/L (15-37); Albumin 3.2 g/dL (3.4-5.0); Alkaline Phosphatase 89 U/L (46-116); Anion Gap 9.8 mmol/L (3-11); BUN 12 mg/dL (7-18); Bilirubin, Total 0.3 mg/dL (0.2-1.0); CO2 25.2 mmol/L (21.0-32.0); Chloride 100 mmol/L (98-107); Estimated GFR 68.21 (mL/min/1.73m2); Potassium 3.3 mmol/L (3.5-5.1); Sodium 135 mmol/L (136-145); Total Protein 6.9 g/dL (6.4-8.2)
[2023-07-02 18:15] LABS: Glucose 340 mg/dL (74-106)
[2023-07-02] MEDS: Acetaminophen 500 MG TAB 1000 MG PO (18:15)
[2023-07-02] MEDS: Ketorolac 15 MG/ML VIAL IVP (18:16)
[2023-07-02 18:22] LABS: Atypical Lymphocytes % 12
[2023-07-02 18:23] LABS: Diff Comment Manual Differential; RBC Morphology Normal
[2023-07-02 18:28] LABS: Absolute Lymphocyte Count 5.72 10^3/uL (1.2-3.4); Absolute Neutrophil Count 8.13 10^3/uL (1.2-6.7)
[2023-07-02 18:32] LABS: Lipase 30 U/L (16-77)
[2023-07-02] MEDS: Omnipaque 350 MG/ML 100 ML BTL IJ (18:50)
[2023-07-02] MEDS: Normal Saline - Diluent 50 ML VIAL IJ (18:51)
[2023-07-02] MEDS: Normal Saline Flush 10 ML SYR IVP (18:52)
[2023-07-02] MEDS: Potassium Chloride 20 MEQ TABCR PO (19:07)
--- NOTE | 2023-07-02 19:46 | W.ED.GENAD ---
Discharge Plan Disposition Patient Disposition: Home Condition: Good Discharge Details Clinical Impression: Abdominal pain Primary Care Provider: Yadiel Burden ED Provider: Lanie Sams Home Meds and New Rx's Prescriptions: New dicyclomine 10 mg capsule 10 mg PO TID Qty: 30 0RF ondansetron 4 mg tablet,disintegrating 4 mg PO Q8H PRNQty: 10 0RF No Action lisdexamfetamine [Vyvanse] 60 mg capsule 60 mg PO DAILY ketoconazole 1 % shampoo 1 applic topical Q3D Qty: 200 0RF albuterol sulfate 90 mcg/actuation HFA aerosol inhaler 2 puff inhalation Q6H PRN (Reason: shortness of breath or wheezing) Qty: 6.7 0RF (DME) Aerochamber MV Spacer See Rx Instructions .Route Qty: 1 0RF Rx Instructions: As directed Flovent HFA 110 mcg/actuation HFA aerosol inhaler 1 puff inhalation BID albuterol sulfate [ProAir HFA] 90 mcg/actuation HFA aerosol inhaler 2 puff inhalation Q6H PRN budesonide 3 mg capsule,delayed,extend.release 9 mg PO DAILY Qty: 84 0RF fluoxetine 40 mg Capsule 60 mg PO DAILY meloxicam [Mobic] 15 mg Tablet 15 mg PO DAILY omeprazole 40 mg Capsule,Delayed Release(Dr/Ec) 40 mg PO DAILY bupropion HCl [Wellbutrin SR] 200 mg Tablet Sustained-Release 12 Hr 200 mg PO BID gabapentin 300 mg Tablet 300 mg PO TID [id number] 50-325-40 mg Capsule 1 - 2 cap PO PRN PRN sucralfate [Carafate] 1 gram Tablet 1 g PO TID fluticasone propionate 110 mcg/actuation Hfa Aerosol Inhaler 1 puff INHALATION BID dicyclomine 20 mg tablet 20 mg PO TID PRN (Reason: abdominal pain) Qty: 10 0RF Ozempic 0.25 mg or 0.5 mg(2 mg/1.5 mL) pen injector 1 mg SUBCUT .ONCE A WEEK Discharge Instructions Instructions: Abdominal Pain (ED) Additional Instructions: Take dicyclomine three times a day as needed for abdominal pain. Take zofran every 8 hours as needed for nausea. Call your GI doctor tomorrow to schedule an appointment to follow up on your visit today. Mention that you had a duodenal diverticulum on your CT scan. Call your primary care doctor tomorrow to schedule an appointment to follow up on your visit today. Mention that your serum beta hcG was 8; they may want to follow up on or repeat this lab. If it gets high in women your age it can be a sign of cance.r Return to the emergency department for new or worsening symptoms including if your pain worsens, you are unable to keep down fluids, your symptoms do not improve, or if you have any other concerns. Referrals: Yadiel Burden [Primary Care Provider] - Medical Decision Making 53yo F with hx of Crohn's, GERD, DM, HTN, HLD, presenting for diffuse abdominal pain x 3 days. Tachycardiac to 117 on arrival, vital signs otherwise reassuring. Diffusely tender on exam (moreso epigastric and RLQ) with no peritoneal signs. No pain out of proportion to suggest mesenteric ichemica. No CVA tenderness to suggest pyelonephritis. Tylenol/toradol for symptoms. Labs reviewed as below, CBC with leukocytosis to 15, CMP with mild hypokalemia and hypomagnesium (orally replaced), no DKA. UA without infection. Normal lipase, not pancreatisis. CT abd/pelvis independently reviewed, no obstruction or free air on my view, radiology read with duodenal diverticulum. On reassessment patient reports pain persists but is improved. Abdominal exam reassuring with no tenderness at this time. Repeat vital signs normal. She is requesting discharge home which is reasonable with her reassuring workup here. Has been on bentyl in the past but is not taking currently; updated prescription sent in the event this may help. Advised to followup closely with her GI doctor. Also instructed to followup with PCP for mild elevation in bHCG/possible malignancy. Discharged home; discharge instructions including return precautions were reviewed with patient who verbalized understanding. All questions were answered and they are in full agreement with the plan. Imaging Data Radiologic Study: Imaging: CT Scan Radiologist's impression: IMPRESSION: 1. ? Normal appendix. 2. ? 2.5 cm collection of air and debris projecting off of the 3rd duodenum. 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 Lab Data Lab results reviewed: Yes I reviewed the patient's lab results. Labs: Laboratory Tests Range/Units 07/02/23 07/02/23 07/02/23 17:35 17:35 17:35 WBC (4.4-10.8) 10^3/uL 15.06 H RBC (3.93-5.22) 10^6/uL 4.34 Hgb (11.2-15.7) g/dL 13.0 Hct (36.0-46.0) % 38.8 MCV (80-95) fL 89 MCH (27.0-33.0) pg 30.0 MCHC (32.0-36.0) % 33.5 RDW (11.7-14.6) % 12.2 Plt Count (130-400) 10^3/uL 321 MPV (8.0-11.0) fL 9.5 Immature Gran % [employer]TON [employer]ATOR Neutrophils % 54.0 Lymphocytes % 26.0 Atypical Lymphs % 12 Monocytes % 8.0 Eosinophils % 0.0 Basophils % 0.0 Nucleated RBC % (0.0-0.3) % 0.0 Absolute Neutrophils (1.2-6.7) 10^3/uL 8.13 H Absolute Lymphocytes (1.2-3.4) 10^3/uL 5.72 H Absolute Monocytes (0.1-0.8) 10^3/uL 1.20 H Absolute Eosinophils (0.0-0.7) 10^3/uL 0.00 Absolute Basophils (0.0-0.2) 10^3/uL 0.00 RBC Morphology Normal Sodium (136-145) mmol/L 135 L Potassium (3.5-5.1) mmol/L 3.3 L Chloride (98-107) mmol/L 100 Carbon Dioxide (21.0-32.0) mmol/L 25.2 Anion Gap (3-11) mmol/L 9.8 BUN (7-18) mg/dL 12 Creatinine (0.55-1.02) mg/dL 1.0 Est GFR (CKD-EPI 2020) (mL/min/1.73m2) 68.21 Glucose (74-106) mg/dL 340 H Calcium (8.5-10.1) mg/dL 9.0 Magnesium (1.8-2.4) mg/dL 1.4 L Total Bilirubin (0.2-1.0) mg/dL 0.3 AST (15-37) U/L 14 L ALT (14-59) U/L 28 Alkaline Phosphatase (46-116) U/L 89 Total Protein (6.4-8.2) g/dL 6.9 Albumin (3.4-5.0) g/dL 3.2 L Lipase (16-77) U/L Beta HCG, Quant (1-3) mIU/mL Urine Color (Yellow) Urine Clarity (Clear) Urine pH (5-8) Ur Specific Lyons (1.005-1.025) Urine Protein (Negative) mg/dL Urine Ketones (Negative) mg/dL Urine Blood (Negative) Urine Nitrite (Negative) Urine Bilirubin (Negative) Urine Urobilinogen (Up to 0.2) mg/dL Ur Leukocyte Esterase (Negative) Urine Glucose (Negative) mg/dL Range/Units 07/02/23 07/02/23 07/02/23 17:35 17:35 17:40 WBC (4.4-10.8) 10^3/uL RBC (3.93-5.22) 10^6/uL Hgb (11.2-15.7) g/dL Hct (36.0-46.0) % MCV (80-95) fL MCH (27.0-33.0) pg MCHC (32.0-36.0) % RDW (11.7-14.6) % Plt Count (130-400) 10^3/uL MPV (8.0-11.0) fL Immature Gran % Neutrophils % Lymphocytes % Atypical Lymphs % Monocytes % Eosinophils % Basophils % Nucleated RBC % (0.0-0.3) % Absolute Neutrophils (1.2-6.7) 10^3/uL Absolute Lymphocytes (1.2-3.4) 10^3/uL Absolute Monocytes (0.1-0.8) 10^3/uL Absolute Eosinophils (0.0-0.7) 10^3/uL Absolute Basophils (0.0-0.2) 10^3/uL RBC Morphology Sodium (136-145) mmol/L Potassium (3.5-5.1) mmol/L Chloride (98-107) mmol/L Carbon Dioxide (21.0-32.0) mmol/L Anion Gap (3-11) mmol/L BUN (7-18) mg/dL Creatinine (0.55-1.02) mg/dL Est GFR (CKD-EPI 2020) (mL/min/1.73m2) Glucose (74-106) mg/dL Calcium (8.5-10.1) mg/dL Magnesium (1.8-2.4) mg/dL Total Bilirubin (0.2-1.0) mg/dL AST (15-37) U/L ALT (14-59) U/L Alkaline Phosphatase (46-116) U/L Total Protein (6.4-8.2) g/dL Albumin (3.4-5.0) g/dL Lipase (16-77) U/L 30 Beta HCG, Quant (1-3) mIU/mL 8 H Urine Color (Yellow) Yellow Urine Clarity (Clear) Clear Urine pH (5-8) 5.5 Ur Specific Lyons (1.005-1.025) >= 1.030 H Urine Protein (Negative) mg/dL Negative Urine Ketones (Negative) mg/dL Negative Urine Blood (Negative) Negative Urine Nitrite (Negative) Negative Urine Bilirubin (Negative) Negative Urine Urobilinogen (Up to 0.2) mg/dL 0.2 Ur Leukocyte Esterase (Negative) Negative Urine Glucose (Negative) mg/dL 500 H HPI General Mode of arrival: ambulatory. Date/Time Provider Initiated Documentation: 07/02/23 16:47. Limitations to Documentation: no limitations. Information obtained by: patient. HPI Narrative: 53yo F with hx of Crohn's, GERD, DM, HTN, HLD, presenting for diffuse abdominal pain x 3 days. Associated nausea, no vomiting or diarrhea. Pain has been constant and worsening. Does not feel like prior Crohn's flares. Some streaks of blood on bowel movements which she attributes to hemorrhoids; no melena or frankly bloody stool. No fevers. She is otherwise in her usual state of health with no chills, rash, dysuria, hematuria, flank pain, or other concerns. Related Data Home Medications Medication Instructions Recorded Confirmed bupropion HCl 200 mg tablet,12 hr 200 mg PO BID 02/09/22 07/02/23 sustained-release (Wellbutrin SR) [id number] 1 - 2 cap PO PRN PRN 02/09/22 07/02/23 50 mg-325 mg-40 mg capsule dicyclomine 20 mg tablet 20 mg PO TID PRN abdominal pain 02/09/22 07/02/23 #10 tabs fluoxetine 40 mg capsule 60 mg PO DAILY 02/09/22 07/02/23 fluticasone propionate 110 1 puff inhalation BID 02/09/22 07/02/23 mcg/actuation HFA aerosol inhaler gabapentin 300 mg tablet 300 mg PO TID 02/09/22 07/02/23 meloxicam 15 mg tablet (Mobic) 15 mg PO DAILY 02/09/22 07/02/23 omeprazole 40 mg capsule,delayed 40 mg PO DAILY 02/09/22 07/02/23 release sucralfate 1 gram tablet (Carafate) 1 g PO TID 02/09/22 07/02/23 albuterol sulfate 90 mcg/actuation 2 puff inhalation Q6H PRN 02/16/22 07/02/23 aerosol inhaler (ProAir HFA) fluticasone propionate 110 1 puff inhalation BID 02/16/22 07/02/23 mcg/actuation HFA aerosol inhaler (Flovent HFA) semaglutide 0.25 mg or 0.5 mg (2 1 mg subcut .ONCE A WEEK 02/16/22 07/02/23 mg/1.5 mL) subcutaneous pen injector (Ozempic) budesonide 3 mg 9 mg PO DAILY #84 caps 03/26/22 07/02/23 capsule,delayed,extended release albuterol sulfate 90 mcg/actuation 2 puff inhalation Q6H PRN 12/11/22 07/02/23 aerosol inhaler shortness of breath or wheezing #6.7 grams inhalational spacing device #1 ea 12/11/22 07/02/23 (Aerochamber MV spacer) ketoconazole 1 % shampoo 1 applic topical Q3D #200 mL 12/11/22 07/02/23 dicyclomine 10 mg capsule 10 mg PO TID #30 caps 07/02/23 lisdexamfetamine 60 mg capsule 60 mg PO DAILY 07/02/23 07/02/23 (Vyvanse) ondansetron 4 mg disintegrating 4 mg PO Q8H PRN #10 tabs 07/02/23 tablet Previous Rx's Medication Instructions Recorded dicyclomine 20 mg tablet 20 mg PO TID PRN abdominal pain 02/09/22 #10 tabs budesonide 3 mg 9 mg PO DAILY #84 caps 03/26/22 capsule,delayed,extended release albuterol sulfate 90 mcg/actuation 2 puff inhalation Q6H PRN 12/11/22 aerosol inhaler shortness of breath or wheezing #6.7 grams inhalational spacing device #1 ea 12/11/22 (Aerochamber MV spacer) ketoconazole 1 % shampoo 1 applic topical Q3D #200 mL 12/11/22 dicyclomine 10 mg capsule 10 mg PO TID #30 caps 07/02/23 ondansetron 4 mg disintegrating 4 mg PO Q8H PRN #10 tabs 07/02/23 tablet Allergies Allergy/AdvReac Type Severity Reaction Status Date / Time bee venom protein (honey bee) Allergy Severe Anaphylaxsi Unverified 07/02/23 14:47 s strawberry Allergy Severe Anaphylaxsi Unverified 07/02/23 14:47 s methylphenidate Allergy Unverified 07/02/23 14:47 [From Ritalin] morphine AdvReac Intermediate Nausea Unverified 07/02/23 14:47 coconut flavor Allergy Uncoded 07/02/23 14:47 General Stated Complaint: Abd Prob AKOSUA: 3 Review of Systems Narrative: see HPI PFSH All Active Problems (Updated 07/02/23 @ 20:29 by Lanie Sams MD) Abdominal pain (Acute) Bilateral lower extremity edema (Acute) Lower extremity pain (Acute) UTI (urinary tract infection) (Acute) Alcohol abuse (Chronic) SIRS (systemic inflammatory response syndrome) (Acute) Bipolar disorder (Chronic) Schizophrenia (Chronic) DVT prophylaxis (Acute) Discharge planning issues (Acute) GERD (gastroesophageal reflux disease) (Chronic) Intentional overdose of drug in tablet form (Acute) Suicide attempt (Acute) Depression (Chronic) Non-insulin dependent type 2 diabetes mellitus (Chronic) Hypertension (Chronic) Hyperlipidemia (Chronic) Medical History Alcohol abuse Bipolar disorder Cervical cancer Cervicalgia Chronic headaches Constipation Depressive disorder TIMOTHY (generalized anxiety disorder) GERD (gastroesophageal reflux disease) Hyperlipidemia Hypertension Non-insulin dependent type 2 diabetes mellitus Obesity Persistent insomnia PTSD (post-traumatic stress disorder) Keen syndrome Schizophrenia Shoulder pain Suicide attempt Tobacco abuse Vitamin D deficiency Surgical History H/O: hysterectomy (~07/08/04) History of facial surgery S/P cholecystectomy Social History Smoking/Tobacco Use Status: Current every day Tobacco Type: cigarettes Smoking packs per day: 1 Smoking cigarettes per day: 20.0 Counseling given: provider counseling Smoking risk assessment performed?: Yes Alcohol Intake: current Alcohol Intake frequency: holidays/special occasions only Alcohol type: hard liquor Counseling given: Yes Drug use: Never Substance use type: does not use Current gender identity: female Do you feel safe at home: Yes Do you feel safe in your relationship?: Yes Exam Narrative Exam Narrative: General: Alert, well appearing, well nourished, in no acute distress. Head: Normocephalic, atraumatic Neck: Trachea midline, Neck supple. ENT: MMM. No oropharygeal lesions or exudate. Cardiac: RRR, no murmurs appreciated Resp: No respiratory distress. CTAB. Abd: Soft, non-distended. TTP diffusely worse in epigastric region and RLQ. No rebound or guarding. : No CVA tenderness. Extremities: No deformities. No peripheral edema. Neurologic: GCS 15. Moves all extremities freely against gravity Course Vital Signs Vital signs: Vital Signs Temperature 36.8 C 07/02/23 16:53 Pulse 117 H 07/02/23 16:53 Respiratory Rate 20 07/02/23 16:53 Blood Pressure 141/88 H 07/02/23 16:53 Pulse Oximetry 97 07/02/23 16:53 Temperature 36.8 C 07/02/23 16:53 Temperature Source Tympanic 07/02/23 16:53 Pulse 117 H 07/02/23 16:53 Respiratory Rate 20 07/02/23 16:53 Respiratory Effort Normal 07/02/23 16:59 Blood Pressure 141/88 H 07/02/23 16:53 Blood Pressure Position Sitting 07/02/23 16:53 Pulse Oximetry 97 07/02/23 16:53 Oxygen Delivery Method Room Air 07/02/23 16:53 Oxygen Flow Rate 0 07/02/23 16:53 Pain Level 8 07/02/23 16:53 Lab/Test Results Lab/Test Results: Laboratory Tests Range/Units 07/02/23 07/02/23 07/02/23 17:35 17:35 17:35 WBC (4.4-10.8) 10^3/uL 15.06 H RBC (3.93-5.22) 10^6/uL 4.34 Hgb (11.2-15.7) g/dL 13.0 Hct (36.0-46.0) % 38.8 MCV (80-95) fL 89 MCH (27.0-33.0) pg 30.0 MCHC (32.0-36.0) % 33.5 RDW (11.7-14.6) % 12.2 Plt Count (130-400) 10^3/uL 321 MPV (8.0-11.0) fL 9.5 Immature Gran % [employer]TON [employer] OPERATOR Neutrophils % 54.0 Lymphocytes % 26.0 Atypical Lymphs % 12 Monocytes % 8.0 Eosinophils % 0.0 Basophils % 0.0 Nucleated RBC % (0.0-0.3) % 0.0 Absolute Neutrophils (1.2-6.7) 10^3/uL 8.13 H Absolute Lymphocytes (1.2-3.4) 10^3/uL 5.72 H Absolute Monocytes (0.1-0.8) 10^3/uL 1.20 H Absolute Eosinophils (0.0-0.7) 10^3/uL 0.00 Absolute Basophils (0.0-0.2) 10^3/uL 0.00 RBC Morphology Normal Sodium (136-145) mmol/L 135 L Potassium (3.5-5.1) mmol/L 3.3 L Chloride (98-107) mmol/L 100 Carbon Dioxide (21.0-32.0) mmol/L 25.2 Anion Gap (3-11) mmol/L 9.8 BUN (7-18) mg/dL 12 Creatinine (0.55-1.02) mg/dL 1.0 Est GFR (CKD-EPI 2020) (mL/min/1.73m2) 68.21 Glucose (74-106) mg/dL 340 H Calcium (8.5-10.1) mg/dL 9.0 Magnesium (1.8-2.4) mg/dL 1.4 L Total Bilirubin (0.2-1.0) mg/dL 0.3 AST (15-37) U/L 14 L ALT (14-59) U/L 28 Alkaline Phosphatase (46-116) U/L 89 Total Protein (6.4-8.2) g/dL 6.9 Albumin (3.4-5.0) g/dL 3.2 L Lipase (16-77) U/L Beta HCG, Quant (1-3) mIU/mL Urine Color (Yellow) Urine Clarity (Clear) Urine pH (5-8) Ur Specific Lyons (1.005-1.025) Urine Protein (Negative) mg/dL Urine Ketones (Negative) mg/dL Urine Blood (Negative) Urine Nitrite (Negative) Urine Bilirubin (Negative) Urine Urobilinogen (Up to 0.2) mg/dL Ur Leukocyte Esterase (Negative) Urine Glucose (Negative) mg/dL Range/Units 07/02/23 07/02/23 07/02/23 17:35 17:35 17:40 WBC (4.4-10.8) 10^3/uL RBC (3.93-5.22) 10^6/uL Hgb (11.2-15.7) g/dL Hct (36.0-46.0) % MCV (80-95) fL MCH (27.0-33.0) pg MCHC (32.0-36.0) % RDW (11.7-14.6) % Plt Count (130-400) 10^3/uL MPV (8.0-11.0) fL Immature Gran % Neutrophils % Lymphocytes % Atypical Lymphs % Monocytes % Eosinophils % Basophils % Nucleated RBC % (0.0-0.3) % Absolute Neutrophils (1.2-6.7) 10^3/uL Absolute Lymphocytes (1.2-3.4) 10^3/uL Absolute Monocytes (0.1-0.8) 10^3/uL Absolute Eosinophils (0.0-0.7) 10^3/uL Absolute Basophils (0.0-0.2) 10^3/uL RBC Morphology Sodium (136-145) mmol/L Potassium (3.5-5.1) mmol/L Chloride (98-107) mmol/L Carbon Dioxide (21.0-32.0) mmol/L Anion Gap (3-11) mmol/L BUN (7-18) mg/dL Creatinine (0.55-1.02) mg/dL Est GFR (CKD-EPI 2020) (mL/min/1.73m2) Glucose (74-106) mg/dL Calcium (8.5-10.1) mg/dL Magnesium (1.8-2.4) mg/dL Total Bilirubin (0.2-1.0) mg/dL AST (15-37) U/L ALT (14-59) U/L Alkaline Phosphatase (46-116) U/L Total Protein (6.4-8.2) g/dL Albumin (3.4-5.0) g/dL Lipase (16-77) U/L 30 Beta HCG, Quant (1-3) mIU/mL 8 H Urine Color (Yellow) Yellow Urine Clarity (Clear) Clear Urine pH (5-8) 5.5 Ur Specific Lyons (1.005-1.025) >= 1.030 H Urine Protein (Negative) mg/dL Negative Urine Ketones (Negative) mg/dL Negative Urine Blood (Negative) Negative Urine Nitrite (Negative) Negative Urine Bilirubin (Negative) Negative Urine Urobilinogen (Up to 0.2) mg/dL 0.2 Ur Leukocyte Esterase (Negative) Negative Urine Glucose (Negative) mg/dL 500 H
--- NOTE | 2023-07-02 19:54 | DI.VRAD_ITS ---
PROCEDURE INFORMATION: Exam: CT Abdomen And Pelvis With Contrast Exam date and time: 07/02/2023 6:56 PM Age: 53 years old Clinical indication: Abdominal pain; Localized; Right lower quadrant (rlq); Prior surgery; Surgery date: 6+ months; Surgery type: Hysterectomy, cholecystectomy; Patient HX: Diffuse abd pain, epigastric and rlq ttp TECHNIQUE: Imaging protocol: Computed tomography of the abdomen and pelvis with contrast. Radiation optimization: All CT scans at this facility use at least one of these dose optimization techniques: automated exposure control; mA and/or kV adjustment per patient size (includes targeted exams where dose is matched to clinical indication); or iterative reconstruction. Contrast material: OMNIPAQUE 350; Contrast volume: 100 ml; Contrast route: INTRAVENOUS (IV); COMPARISON: CT ABDOMEN PELVIS W 03/26/2022 6:00 PM FINDINGS: Liver: Normal. No mass. Gallbladder and bile ducts: Cholecystectomy Pancreas: Pancreatic atrophy. Spleen: Normal. No splenomegaly. Adrenal glands: Normal. No mass. Kidneys and ureters: Normal. No hydronephrosis. There is no evidence of renal or ureteral calcifications. Stomach and bowel: 2.5 cm collection of air and debris projecting off of the 3rd duodenum. 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 Appendix: Normal appendix. Intraperitoneal space: Unremarkable. No free air. No significant fluid collection. Vasculature: Unremarkable. No abdominal aortic aneurysm. Lymph nodes: Unremarkable. No enlarged lymph nodes. Urinary bladder: Unremarkable as visualized. Reproductive: Surgical resection of the uterus Bones/joints: Unremarkable. No acute fracture. Soft tissues: Unremarkable. IMPRESSION: 1. Normal appendix. 2. 2.5 cm collection of air and debris projecting off of the 3rd duodenum. 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 Dictated and Authenticated by: Norma Liang MD. Ordering:MECCA Dela Cruz MD
[2023-07-02 20:44] VITALS: BP 118/72; PULSE 84; TEMP 36.8; O2SAT 94
== END 2023-07-02 21:01 | disposition home or self-care (01) ==
PROVIDERS: Emergency Provider Student in an Organized Health Care Education/Training Program; PCP Family Medicine
DX: R10.814 Left lower quadrant abdominal tenderness (principal); R10.13 Epigastric pain; E11.9 Type 2 diabetes mellitus without complications; I10 Essential (primary) hypertension; K21.9 Gastro-esophageal reflux disease without esophagitis; K50.90 Crohn's disease, unspecified, without complications; R00.0 Tachycardia, unspecified; R10.31 Right lower quadrant pain; E87.6 Hypokalemia; E83.42 Hypomagnesemia; Z79.899 Other long term (current) drug therapy; Z90.710 Acquired absence of both cervix and uterus; R93.49 Abnormal radiologic findings on diagnostic imaging of other urinary organs
CPT/HCPCS: 36415; 80053; 83690; 96374; 99285; 74177; 81003; 83735; 84702; 85025; J1885; J3490

== ENCOUNTER 2023-11-28 14:32 | Emergency (ER) | payer MEDICARE, SELFPAY ==
[2023-11-28 14:37] VITALS: BP 148/74; PULSE 111; RESP 20; TEMP 36.2; O2SAT 99
--- NOTE | 2023-11-28 15:07 | W.ED.GENAD ---
HPI General Mode of arrival: ambulatory. Date/Time Provider Initiated Documentation: 11/28/23 15:07. Limitations to Documentation: no limitations. Information obtained by: patient and family. HPI Narrative: Patient presenting to ED with chief complaint of left-sided head and ear pain. Patient has history of chronic headache. Reports having a cold last month with continued left-sided head and ear pain since then. Also complains of pain in the left jaw and difficulty swallowing. There is no cough or shortness of breath. Has continued intermittent left-sided abdominal and chest pain which has been an ongoing problem for years. This is unchanged and intermittent in nature. No reported fever. No neurologic changes. Patient and give history together, filling in details as needed. Related Data Home Medications Medication Instructions Recorded Confirmed albuterol sulfate 90 mcg/actuation 2 puff inhalation Q6H PRN PRN 02/19/17 11/28/23 aerosol inhaler (ProAir HFA) fluticasone propionate 110 2 puff inhalation BID PRN PRN 02/19/17 11/28/23 mcg/actuation HFA aerosol inhaler (Flovent HFA) loratadine 10 mg tablet 10 mg PO DAILY 02/19/17 11/28/23 lovastatin 20 mg tablet,extended 20 mg PO HS 02/19/17 11/28/23 release 24 hr (Altoprev) albuterol sulfate 90 mcg/actuation 2 puff inhalation PRN PRN 02/22/17 11/28/23 aerosol inhaler (Ventolin HFA) aspirin 81 mg tablet,delayed 81 mg PO DAILY 02/22/17 11/28/23 release gabapentin 100 mg capsule 200 mg PO BID 02/22/17 11/28/23 lisinopril 5 mg tablet (Prinivil) 5 mg PO DAILY 02/22/17 11/28/23 metformin 1,000 mg tablet 1,000 mg PO BID 02/22/17 11/28/23 montelukast 10 mg tablet 10 mg PO HS 02/22/17 11/28/23 (Singulair) omeprazole 20 mg capsule,delayed 20 mg PO HS 02/22/17 11/28/23 release prazosin 1 mg capsule (Minipress) 3 mg PO HS 02/22/17 11/28/23 ranitidine HCl 150 mg tablet 150 mg PO BID 02/22/17 11/28/23 (Zantac) ropinirole 0.25 mg tablet 0.25 mg PO HS 02/22/17 11/28/23 venlafaxine 37.5 mg tablet 37.5 mg PO HS 02/22/17 11/28/23 ibuprofen 600 mg tablet 600 mg PO Q6H PRN Pain #16 tabs 05/10/17 11/28/23 tramadol 50 mg tablet 50 mg PO QID PRN #20 tabs 05/16/17 11/28/23 nndfwgorda-cifqyseuwdgxw-eburofcq 1 - 2 cap PO PRN PRN 02/09/22 11/28/23 50 mg-325 mg-40 mg capsule dicyclomine 20 mg tablet 20 mg PO TID PRN abdominal pain 02/09/22 11/28/23 #10 tabs fluoxetine 40 mg capsule 60 mg PO DAILY 02/09/22 11/28/23 fluticasone propionate 110 1 puff inhalation BID 02/09/22 11/28/23 mcg/actuation HFA aerosol inhaler gabapentin 300 mg tablet 300 mg PO TID 02/09/22 11/28/23 meloxicam 15 mg tablet (Mobic) 15 mg PO DAILY 02/09/22 11/28/23 omeprazole 40 mg capsule,delayed 40 mg PO DAILY 02/09/22 11/28/23 release sucralfate 1 gram tablet (Carafate) 1 g PO TID 02/09/22 11/28/23 albuterol sulfate 90 mcg/actuation 2 puff inhalation Q6H PRN 02/16/22 11/28/23 aerosol inhaler (ProAir HFA) fluticasone propionate 110 1 puff inhalation BID 02/16/22 11/28/23 mcg/actuation HFA aerosol inhaler (Flovent HFA) semaglutide 0.25 mg or 0.5 mg (2 1 mg subcut .ONCE A WEEK 02/16/22 11/28/23 mg/1.5 mL) subcutaneous pen injector (Ozempic) budesonide 3 mg 9 mg (3 x 3 mg) PO DAILY #84 caps 03/26/22 11/28/23 capsule,delayed,extended release albuterol sulfate 90 mcg/actuation 2 puff inhalation Q6H PRN 12/11/22 11/28/23 aerosol inhaler shortness of breath or wheezing #6.7 grams inhalational spacing device #1 ea 12/11/22 11/14/23 (Aerochamber MV spacer) ketoconazole 1 % shampoo 1 applic topical Q3D #200 mL 12/11/22 11/28/23 dicyclomine 10 mg capsule 10 mg PO TID #30 caps 07/02/23 11/28/23 lisdexamfetamine 60 mg capsule 60 mg PO DAILY 07/02/23 11/28/23 (Vyvanse) ondansetron 4 mg disintegrating 4 mg PO Q8H PRN #10 tabs 07/02/23 11/28/23 tablet bupropion HCl 300 mg 24 hr tablet, 300 mg PO QAM 11/05/23 11/28/23 extended release (Wellbutrin XL) fluoxetine 40 mg capsule (Prozac) 120 mg PO DAILY 11/05/23 11/28/23 Previous Rx's Medication Instructions Recorded ibuprofen 600 mg tablet 600 mg PO Q6H PRN Pain #16 tabs 05/10/17 dicyclomine 20 mg tablet 20 mg PO TID PRN abdominal pain 02/09/22 #10 tabs budesonide 3 mg 9 mg (3 x 3 mg) PO DAILY #84 caps 03/26/22 capsule,delayed,extended release albuterol sulfate 90 mcg/actuation 2 puff inhalation Q6H PRN 12/11/22 aerosol inhaler shortness of breath or wheezing #6.7 grams inhalational spacing device #1 ea 12/11/22 (Aerochamber MV spacer) ketoconazole 1 % shampoo 1 applic topical Q3D #200 mL 12/11/22 dicyclomine 10 mg capsule 10 mg PO TID #30 caps 07/02/23 ondansetron 4 mg disintegrating 4 mg PO Q8H PRN #10 tabs 07/02/23 tablet Allergies Allergy/AdvReac Type Severity Reaction Status Date / Time bee venom protein (honey bee) Allergy Severe Anaphylaxsi Unverified 11/28/23 16:40 s strawberry Allergy Severe Anaphylaxsi Unverified 11/28/23 16:40 s methylphenidate Allergy Intermediate Other (See Unverified 11/28/23 16:40 [From Ritalin] Comment) morphine AdvReac Intermediate Nausea Unverified 11/28/23 16:40 steroids AdvReac Intermediate blisters Uncoded 11/28/23 16:40 coconut flavor AdvReac Other (See Uncoded 11/28/23 16:40 Comment) General Stated Complaint: Headache AKOSUA: 3 Review of Systems Narrative: Per HPI Exam Narrative Exam Narrative: Const: WDWN female in NAD. HEENT: NC/AT. Normal facial exam. TMs clear bilaterally. Able to open mouth fully. Oropharynx is clear. Eyes: Normal conjunctiva and sclera. Neck: Supple. Trachea midline. No adenopathy. Lungs: Normal respiratory effort. Lungs are clear. Cor: RRR without murmur/gallop. Good radial pulses. GI: Soft. NT/ND. No guarding or rebound. Neuro: A+O x 3. Normal speech, mentation, gait. Cranial nerves II - XII grossly intact. No gross motor or sensory deficit. Ext: No C/C/E. Skin: Warm and dry without rash. Course Vital Signs Vital signs: Vital Signs Temperature 97.1 F L 11/28/23 14:37 Pulse 111 H 11/28/23 14:37 Respiratory Rate 20 11/28/23 14:37 Blood Pressure 148/74 H 11/28/23 14:37 Pulse Oximetry 99 11/28/23 14:37 Temperature 97.1 F L 11/28/23 14:37 Pulse 111 H 11/28/23 14:37 Respiratory Rate 20 11/28/23 14:37 Blood Pressure 148/74 H 11/28/23 14:37 Pulse Oximetry 99 11/28/23 14:37 Pain Level 9 11/28/23 14:37 Medical Decision Making Patient presenting to ED with chief complaint of left-sided head and ear pain. This has been ongoing for over a month but worse in the last 3 days. Patient has history of chronic headaches. She is also complaining of continued intermittent abdominal and chest pain. This has been fully worked up previously as reviewed in the [facility] GI consult available in her documents. She has history of chronic headaches. Her exam is unremarkable. She is neurologically intact. Left ear and TM is normal. Oropharynx is normal. Will place IV and obtain head CT given complaint of worsening left-sided head and ear pain though I doubt, given lack of physical findings, that mass or abscess is unlikely. Will obtain abdominal labs but I do not feel imaging necessary unless there is significant abnormalities. Will treat with fluids, prochlorperazine, ketorolac. Patient reports pain is improved although not completely resolved with prochlorperazine and ketorolac. Will dose with IV acetaminophen. Head CT per radiology with no acute intracranial process. Laboratory studies are unremarkable. Blood sugar little high at 239. Will plan discharge home and have patient follow-up with primary care. Return precautions provided. Medical Records Medical records reviewed: Yes I reviewed the patient's medical records. Medical records narrative: [facility] GI consult very helpful Lab Data Lab results reviewed: Yes I reviewed the patient's lab results. Quality:SDOH Health Related Social Needs: No Data to Display [facility] All Active Problems (Updated 11/28/23 @ 17:08 by Rojas Vu MD) Headache (Acute) Bilateral lower extremity edema (Acute) Lower extremity pain (Acute) UTI (urinary tract infection) (Acute) Alcohol abuse (Chronic) SIRS (systemic inflammatory response syndrome) (Acute) Bipolar disorder (Chronic) Schizophrenia (Chronic) DVT prophylaxis (Acute) Discharge planning issues (Acute) GERD (gastroesophageal reflux disease) (Chronic) Intentional overdose of drug in tablet form (Acute) Suicide attempt (Acute) Depression (Chronic) Non-insulin dependent type 2 diabetes mellitus (Chronic) Hypertension (Chronic) Hyperlipidemia (Chronic) Medical History TIMOTHY (generalized anxiety disorder) Keen syndrome Cervicalgia Persistent insomnia Shoulder pain Constipation Tobacco abuse PTSD (post-traumatic stress disorder) Depressive disorder Vitamin D deficiency Obesity Suicide attempt Alcohol abuse Hypertension Hyperlipidemia GERD (gastroesophageal reflux disease) Bipolar disorder Schizophrenia Chronic headaches Cervical cancer Non-insulin dependent type 2 diabetes mellitus Surgical History History of facial surgery S/P cholecystectomy H/O: hysterectomy (~07/08/04) Ligation of fallopian tube section EGD - MAC (02/23/17) Cystoscopy Cholecystectomy Social History Smoking/Tobacco Use Status: Current-Occasional Tobacco Type: cigarettes Smoking packs per day: 1 Smoking cigarettes per day: 20.0 Counseling given: provider counseling Smoking risk assessment performed?: Yes Alcohol Intake: current Alcohol Intake frequency: holidays/special occasions only Alcohol type: hard liquor Counseling given: Yes Drug use: Never Substance use type: does not use Current gender identity: female Do you feel safe at home: Yes Do you feel safe in your relationship?: Yes Discharge Plan Disposition Patient Disposition: Home Condition: Good Discharge Details Clinical Impression: Headache Primary Care Provider: Yadiel Burden ED Provider: Rojas Vu [place] Meds and New Rx's Prescriptions: Continued lisdexamfetamine [Vyvanse] 60 mg capsule 60 mg PO DAILY bupropion HCl [Wellbutrin XL] 300 mg tablet extended release 24 hr 300 mg PO QAM fluoxetine [Prozac] 40 mg capsule 120 mg PO DAILY ketoconazole 1 % shampoo 1 applic topical Q3D Qty: 200 0RF albuterol sulfate 90 mcg/actuation HFA aerosol inhaler 2 puff inhalation Q6H PRN (Reason: shortness of breath or wheezing) Qty: 6.7 0RF (DME) Aerochamber MV Spacer See Rx Instructions .Route Qty: 1 0RF Rx Instructions: As directed tramadol 50 MG tablet 50 mg PO QID PRN Qty: 20 fluticasone propionate [Flovent HFA] 110 mcg/actuation HFA aerosol inhaler 1 puff inhalation BID albuterol sulfate [ProAir HFA] 90 mcg/actuation HFA aerosol inhaler 2 puff inhalation Q6H PRN budesonide 3 mg capsule,delayed,extend.release 9 mg PO DAILY Qty: 84 0RF dicyclomine 10 mg capsule 10 mg PO TID Qty: 30 0RF ondansetron 4 mg tablet,disintegrating 4 mg PO Q8H PRNQty: 10 0RF albuterol sulfate [ProAir HFA] 200 PUFF HFA aerosol inhaler 2 puff Inhalation Q6H PRN PRN loratadine 10 MG tablet 10 mg PO DAILY fluticasone propionate [Flovent HFA] 120 PUFF HFA aerosol inhaler 2 puff Inhalation BID PRN PRN Altoprev 20 MG tablet extended release 24 hr 20 mg PO HS Zantac 150 MG tablet 150 mg PO BID gabapentin 100 MG capsule 200 mg PO BID prazosin [Minipress] 1 MG capsule 3 mg PO HS aspirin 81 MG tablet,delayed release (DR/EC) 81 mg PO DAILY ropinirole 0.25 MG tablet 0.25 mg PO HS venlafaxine 37.5 MG tablet 37.5 mg PO HS metformin 1,000 MG tablet 1,000 mg PO BID omeprazole 20 MG capsule,delayed release(DR/EC) 20 mg PO HS montelukast [Singulair] 10 MG tablet 10 mg PO HS lisinopril [Prinivil] 5 MG tablet 5 mg PO DAILY albuterol sulfate [Ventolin HFA] 60 PUFF HFA aerosol inhaler 2 puff Inhalation PRN PRN ibuprofen 600 MG tablet 600 mg PO Q6H PRN (Reason: Pain) Qty: 16 0RF fluoxetine 40 mg Capsule 60 mg PO DAILY meloxicam [Mobic] 15 mg Tablet 15 mg PO DAILY omeprazole 40 mg Capsule,Delayed Release(Dr/Ec) 40 mg PO DAILY gabapentin 300 mg Tablet 300 mg PO TID kpsgjoxooy-dmoxyqhzivtob-szxt 50-325-40 mg Capsule 1 - 2 cap PO PRN PRN sucralfate [Carafate] 1 gram Tablet 1 g PO TID fluticasone propionate 110 mcg/actuation Hfa Aerosol Inhaler 1 puff INHALATION BID dicyclomine 20 mg tablet 20 mg PO TID PRN (Reason: abdominal pain) Qty: 10 0RF Ozempic 0.25 mg or 0.5 mg(2 mg/1.5 mL) pen injector 1 mg SUBCUT .ONCE A WEEK Discontinued citalopram 40 MG tablet 40 mg PO DAILY bupropion HCl [Wellbutrin SR] 200 mg Tablet Sustained-Release 12 Hr 200 mg PO BID Discharge Instructions Instructions: General Headache (ED) Additional Instructions: You were seen in the ED for headache. Imaging and laboratory studies show nothing acute. Your exam is reassuring. You were treated with fluids and medications with improvement of headache. Please continue previous medications as before and follow-up with your primary care physician. Return to ED for any neurologic change, fever, persistent vomiting, other concerns.
--- NOTE | 2023-11-28 15:15 | DI.CT_ITS ---
Exam(s) CT HEAD WO EXAM: CT HEAD WO CLINICAL HISTORY: left side head/ear pain. TECHNIQUE: Imaging Protocol: Axial computed tomography images with coronal and sagittal reformatted images were created and reviewed COMPARISON: No exams were available for comparison FINDINGS: Ventricles and Extra axial spaces: Normal in size and morphology for the patient's age. Hemorrhage: None. Cerebral parenchyma: Normal. Midline shift: None. Brainstem/Cerebellum: Normal. Calvarium: Normal. Visualized Paranasal sinuses/Mastoids: Clear. Soft Tissues: Unremarkable. The external auditory canals are unremarkable. There is no evidence of otitis media. The mastoid ai r cells are clear. IMPRESSION: 1. No acute intracranial process. 2. Findings were discussed with the emergency department at 4:50 p.m. on 11/28/2023. RADIATION DOSE DELIVERED: 681.32mGy.cm Total DLP DATA REPOSITORY: All CT scans at this facility are submitted to the National Radiology Data Registry (NRDR) Dose Index Registry (DIR) with the [employer] ([employer]). RADIATION OPTIMIZATION: All CT scans at this facility use at least one of these dose optimization te chniques: automated exposure control; mA and/or kV adjustment per patient size (includes targeted exa ms where dose is matched to clinical indication); or iterative reconstruction.
[2023-11-28 15:54] LABS: Abs Immature Grans 0.07 10^3/uL (0.0-0.06); Absolute Basophil Count 0.09 10^3/uL (0.0-0.2); Absolute Eosinophil Count 0.08 10^3/uL (0.0-0.7); Absolute Lymphocyte Count 3.64 10^3/uL (1.2-3.4); Absolute Monocyte Count 0.61 10^3/uL (0.1-0.8); Basophils % 0.8; Eosinophils % 0.7; HCT 38.2 % (36.0-46.0); HGB 12.9 g/dL (11.2-15.7); Immature Grans % 0.6; Lymphocytes % 33.2; MCH 29.8 pg (27.0-33.0); MCHC 33.8 % (32.0-36.0); MCV 88 fL (80-95); Monocytes % 5.6; Neutrophils % 59.1; Platelet Count 319 10^3/uL (130-400); RBC 4.33 10^6/uL (3.93-5.22); RDW 12.4 % (11.7-14.6); RDW-SD 40.3 fL; WBC 10.96 10^3/uL (4.4-10.8)
[2023-11-28] MEDS: Ketorolac 15 MG/ML VIAL IVP (15:56)
[2023-11-28] MEDS: Prochlorperazine 10 MG/2 ML VIAL IVP (15:56)
[2023-11-28] MEDS: Normal Saline 1,000 ML 1000 ML IV (15:56)
[2023-11-28 15:57] LABS: Absolute Neutrophil Count 6.48 10^3/uL (1.2-6.7)
[2023-11-28 16:09] LABS: Lipase 27 U/L (16-77)
[2023-11-28 16:15] LABS: ALT 18 U/L (14-59); AST 10 U/L (15-37); Albumin 3.2 g/dL (3.4-5.0); Alkaline Phosphatase 81 U/L (46-116); Anion Gap 9.4 mmol/L (3-11); BUN 12 mg/dL (7-18); Bilirubin, Total 0.2 mg/dL (0.2-1.0); CO2 28.6 mmol/L (21.0-32.0); CREATININE 0.7 mg/dL (0.55-1.02); Calcium 9.1 mg/dL (8.5-10.1); Chloride 99 mmol/L (98-107); Estimated GFR 104.65 (mL/min/1.73m2); Glucose 239 mg/dL (74-106); Potassium 3.5 mmol/L (3.5-5.1); Sodium 137 mmol/L (136-145)
[2023-11-28] MEDS: Acetaminophen 500 MG TAB 1000 MG PO (17:24)
== END 2023-11-28 17:37 | disposition home or self-care (01) ==
LOC: ER 17:18
PROVIDERS: Emergency Provider Emergency Medicine; PCP Family Medicine
DX: R51.9 Headache, unspecified (principal); I10 Essential (primary) hypertension; E78.5 Hyperlipidemia, unspecified; E11.9 Type 2 diabetes mellitus without complications; Z79.82 Long term (current) use of aspirin; Z79.84 Long term (current) use of oral hypoglycemic drugs; F17.210 Nicotine dependence, cigarettes, uncomplicated
CPT/HCPCS: 80053; 83690; 96361; 96374; 99284; 70450; 85025; J0780; J1885

== ENCOUNTER 2024-04-29 16:34 | Emergency (ER) | payer MEDICARE, SELFPAY ==
[2024-04-29] VITALS (18 sets, daily range): BP systolic 100–126; BP diastolic 44–79; PULSE 83–106; RESP 13–20; TEMP 36.7; O2SAT 94–100
[2024-04-29 17:31] LABS: Bilirubin Negative (Negative); Blood Negative (Negative); Clarity Clear (Clear); Glucose >=1000 mg/dL (Negative); Ketones Negative (Negative); Leukocyte Esterase Negative (Negative); Nitrite Negative (Negative); Specific Gravity <= 1.005 (1.005-1.025); Urobilinogen 0.2 mg/dL (Up to 0.2)
--- NOTE | 2024-04-29 17:31 | ED.GENADUL_ITS ---
Discharge Plan Disposition Patient Disposition: Home Condition: Stable Discharge Details Clinical Impression: Back pain, Constipation, Hyperglycemia Primary Care Provider: Yadiel Burden ED Provider: Basilio Escobar Lester Meds and New Rx's Prescriptions: New diazepam [Valium] 5 mg tablet 5 mg PO TID PRN (Reason: muscle spasm) Qty: 10 0RF Continued bupropion HCl [Wellbutrin XL] 300 mg tablet extended release 24 hr 300 mg PO QAM ketoconazole 1 % shampoo 1 applic topical Q3D Qty: 200 0RF albuterol sulfate 90 mcg/actuation HFA aerosol inhaler 2 puff inhalation Q6H PRN (Reason: shortness of breath or wheezing) Qty: 6.7 0RF (DME) Aerochamber MV Spacer See Rx Instructions .Route Qty: 1 0RF Rx Instructions: As directed tramadol 50 MG tablet 50 mg PO QID PRN Qty: 20 fluticasone propionate [Flovent HFA] 110 mcg/actuation HFA aerosol inhaler 1 puff inhalation BID albuterol sulfate [ProAir HFA] 90 mcg/actuation HFA aerosol inhaler 2 puff inhalation Q6H PRN budesonide 3 mg capsule,delayed,extend.release 9 mg PO DAILY Qty: 84 0RF ondansetron 4 mg tablet,disintegrating 4 mg PO Q8H PRNQty: 10 0RF albuterol sulfate [ProAir HFA] 200 PUFF HFA aerosol inhaler 2 puff Inhalation Q6H PRN PRN loratadine 10 MG tablet 10 mg PO DAILY fluticasone propionate [Flovent HFA] 120 PUFF HFA aerosol inhaler 2 puff Inhalation BID PRN PRN Altoprev 20 MG tablet extended release 24 hr 20 mg PO HS ranitidine HCl [Zantac] 150 MG tablet 150 mg PO BID gabapentin 100 MG capsule 200 mg PO BID prazosin [Minipress] 1 MG capsule 3 mg PO HS aspirin 81 MG tablet,delayed release (DR/EC) 81 mg PO DAILY ropinirole 0.25 MG tablet 0.25 mg PO HS metformin 1,000 MG tablet 1,000 mg PO BID omeprazole 20 MG capsule,delayed release(DR/EC) 20 mg PO HS montelukast [Singulair] 10 MG tablet 10 mg PO HS lisinopril [Prinivil] 5 MG tablet 5 mg PO DAILY albuterol sulfate [Ventolin HFA] 60 PUFF HFA aerosol inhaler 2 puff Inhalation PRN PRN ibuprofen 600 MG tablet 600 mg PO Q6H PRN (Reason: Pain) Qty: 16 0RF fluoxetine 40 mg Capsule 60 mg PO DAILY meloxicam [Mobic] 15 mg Tablet 15 mg PO DAILY omeprazole 40 mg Capsule,Delayed Release(Dr/Ec) 40 mg PO DAILY gabapentin 300 mg Tablet 300 mg PO TID [id number] 50-325-40 mg Capsule 1 - 2 cap PO PRN PRN fluticasone propionate 110 mcg/actuation Hfa Aerosol Inhaler 1 puff INHALATION BID dextroamphetamine-amphetamine 20 mg tablet 20 mg PO TID Patient Comments: TAKE ONE TABLET BY MOUTH THREE TIMES A DAY Discharge Instructions Additional Instructions: Follow-up with your primary care provider for better control of your diabetes. If you feel more ill, have severe worsening pain or new symptoms such as high fevers return to the emergency department You can take milk of magnesia for your constipation. HPI General Mode of arrival: EMS . Date/Time Provider Initiated Documentation: 04/29/24 17:13 . Limitations to Documentation: no limitations . Information obtained by: patient . History of Present Illness 54 year old F presents to the emergency department with the chief complaint of lower back pain, described as moderate, Patient started experiencing this day(s) (3) and it has been constant. No relieving factors improve symptom(s), No exacerbating factors reported . Patient notes denies chest pain, cough, fever/chills and shortness of breath. Patient did receive the following treatments prior to arrival, none Related Data Home Medications ?Medication ?Instructions ?Recorded ?Confirmed albuterol sulfate 90 mcg/actuation 2 puff inhalation Q6H PRN PRN 02/19/17 04/29/24 aerosol inhaler (ProAir HFA) fluticasone propionate 110 2 puff inhalation BID PRN PRN 02/19/17 04/29/24 mcg/actuation HFA aerosol inhaler (Flovent HFA) loratadine 10 mg tablet 10 mg PO DAILY 02/19/17 04/29/24 lovastatin 20 mg tablet,extended 20 mg PO HS 02/19/17 04/29/24 release 24 hr (Altoprev) albuterol sulfate 90 mcg/actuation 2 puff inhalation PRN PRN 02/22/17 04/29/24 aerosol inhaler (Ventolin HFA) aspirin 81 mg tablet,delayed 81 mg PO DAILY 02/22/17 04/29/24 release gabapentin 100 mg capsule 200 mg PO BID 02/22/17 04/29/24 lisinopril 5 mg tablet (Prinivil) 5 mg PO DAILY 02/22/17 04/29/24 metformin 1,000 mg tablet 1,000 mg PO BID 02/22/17 04/29/24 montelukast 10 mg tablet 10 mg PO HS 02/22/17 04/29/24 (Singulair) omeprazole 20 mg capsule,delayed 20 mg PO HS 02/22/17 04/29/24 release prazosin 1 mg capsule (Minipress) 3 mg PO HS 02/22/17 04/29/24 ranitidine HCl 150 mg tablet 150 mg PO BID 02/22/17 04/29/24 (Zantac) ropinirole 0.25 mg tablet 0.25 mg PO HS 02/22/17 04/29/24 ibuprofen 600 mg tablet 600 mg PO Q6H PRN Pain #16 tabs 05/10/17 04/29/24 tramadol 50 mg tablet 50 mg PO QID PRN #20 tabs 05/16/17 04/29/24 ucgnxxkiud-airhpnhtbkjdj-cfryhsyg 1 - 2 cap PO PRN PRN 02/09/22 04/29/24 50 mg-325 mg-40 mg capsule fluoxetine 40 mg capsule 60 mg PO DAILY 02/09/22 04/29/24 fluticasone propionate 110 1 puff inhalation BID 02/09/22 04/29/24 mcg/actuation HFA aerosol inhaler gabapentin 300 mg tablet 300 mg PO TID 02/09/22 04/29/24 meloxicam 15 mg tablet (Mobic) 15 mg PO DAILY 02/09/22 04/29/24 omeprazole 40 mg capsule,delayed 40 mg PO DAILY 02/09/22 04/29/24 release albuterol sulfate 90 mcg/actuation 2 puff inhalation Q6H PRN 02/16/22 04/29/24 aerosol inhaler (ProAir HFA) fluticasone propionate 110 1 puff inhalation BID 02/16/22 04/29/24 mcg/actuation HFA aerosol inhaler (Flovent HFA) budesonide 3 mg 9 mg (3 x 3 mg) PO DAILY #84 caps 03/26/22 04/29/24 capsule,delayed,extended release albuterol sulfate 90 mcg/actuation 2 puff inhalation Q6H PRN 12/11/22 04/29/24 aerosol inhaler shortness of breath or wheezing #6.7 grams inhalational spacing device #1 ea 12/11/22 04/29/24 (Aerochamber MV spacer) ketoconazole 1 % shampoo 1 applic topical Q3D #200 mL 12/11/22 04/29/24 ondansetron 4 mg disintegrating 4 mg PO Q8H PRN #10 tabs 07/02/23 04/29/24 tablet bupropion HCl 300 mg 24 hr tablet, 300 mg PO QAM 11/05/23 04/29/24 extended release (Wellbutrin XL) dextroamphetamine-amphetamine 20 20 mg PO TID 04/29/24 04/29/24 mg tablet diazepam 5 mg tablet (Valium) 5 mg PO TID PRN muscle spasm #10 04/29/24 tabs Previous Rx's ?Medication ?Instructions ?Recorded ibuprofen 600 mg tablet 600 mg PO Q6H PRN Pain #16 tabs 05/10/17 budesonide 3 mg 9 mg (3 x 3 mg) PO DAILY #84 caps 03/26/22 capsule,delayed,extended release albuterol sulfate 90 mcg/actuation 2 puff inhalation Q6H PRN 12/11/22 aerosol inhaler shortness of breath or wheezing #6.7 grams inhalational spacing device #1 ea 12/11/22 (Aerochamber MV spacer) ketoconazole 1 % shampoo 1 applic topical Q3D #200 mL 12/11/22 ondansetron 4 mg disintegrating 4 mg PO Q8H PRN #10 tabs 07/02/23 tablet diazepam 5 mg tablet (Valium) 5 mg PO TID PRN muscle spasm #10 04/29/24 tabs Allergies Allergy/AdvReac Type Severity Reaction Status Date / Time bee venom protein (honey bee) Allergy Severe Anaphylaxsi Unverified 04/29/24 16:36 s strawberry Allergy Severe Anaphylaxsi Unverified 04/29/24 16:36 s methylphenidate (From Allergy Intermediate Other (See Unverified 04/29/24 16:36 Ritalin) Comment) morphine AdvReac Intermediate Nausea Unverified 04/29/24 16:36 steroids AdvReac Intermediate blisters Uncoded 04/29/24 16:36 coconut flavor AdvReac Other (See Uncoded 04/29/24 16:36 Comment) General Stated Complaint: Diabetes AKOSUA: 3 Review of Systems All systems reviewed & are unremarkable except as noted in HPI and below Constitutional Constitutional: Denies chills, Denies fever(s) and Denies weakness Cardiovascular Cardiovascular: Denies chest pain and Denies dyspnea Respiratory Respiratory: Denies cough and Denies dyspnea Gastrointestinal Gastrointestinal: Denies abdominal pain, Reports constipation and Denies vomiting Genitourinary Genitourinary: Denies dysuria Musculoskeletal Musculoskeletal: Reports back pain Integumentary/Breasts Skin/Breast: Denies rash Neurologic Neurologic: Denies weakness Exam Const General: no acute distress Orientation: alert HENMT Head: normal to inspection Ears: external ears normal General nose exam: external nose normal Mouth: moist mucous membranes Eyes General: appearance normal, both eyes and all related structures Neck Neck: normal visual inspection Resp Effort & Inspection: normal respiratory effort and able to speak in complete sentences Cardio Rate: regular rate GI Palpation: soft and nontender Back/Spine/Pelvis Back: no CVA tenderness Neuro General: patient alert and patient oriented x3 Extrem General: normal to inspection Psych Mental Status: mental status grossly normal Course Vital Signs Vital signs: Vital Signs Temperature 36.7 C 04/29/24 16:40 Pulse 106 H 04/29/24 16:40 Respiratory Rate 18 04/29/24 16:40 Blood Pressure 120/79 04/29/24 16:40 Pulse Oximetry 95 04/29/24 16:40 Temperature 36.7 C 04/29/24 16:40 Temperature Source Temporal Artery Scan 04/29/24 16:40 Pulse 106 H 04/29/24 16:40 Respiratory Rate 18 04/29/24 16:40 Respiratory Effort Normal, Non-Labored 04/29/24 16:44 Blood Pressure 120/79 04/29/24 16:40 Blood Pressure Position Sitting 04/29/24 16:40 Pulse Oximetry 95 04/29/24 16:40 Oxygen Delivery Method Room Air 04/29/24 16:40 Oxygen Flow Rate 0 04/29/24 16:40 Pain Level 7 04/29/24 16:40 Medical Decision Making 54-year-old female with a history of diabetes on insulin but is not able to take all her medications due to financial reasons, schizophrenia, hypertension who comes in with EMS with several days of lower back discomfort and constipation. She denies any vomiting or severe abdominal pain, no fevers or chest pain. She has not had any issues with urinating or with bowel movements. She denies any IV drug use. She is alert and oriented holding her lower back on exam. She has reproducible bilateral paraspinal lumbar tenderness. There is no visible or palpable deformities. She has no saddle anesthesia and intact distal sensation and pulses in her feet. She has no abdominal tenderness. Her glucose level with EMS was over 500. I suspect hyperglycemia not DKA but will check a VBG, CBC, CMP, lipase and treat her symptoms with IV fluids, Valium and Toradol. Her back pain seems musculoskeletal in nature and has no findings on exam or history to suggest entity such as cauda equina or spinal epidural abscess. Do not feel any acute imaging of her back is indicated. Labs unremarkable other than a glucose over 600. After insulin and came down to 300s and she tolerating p.o. and feels significantly better requesting discharge. Advised to follow-up with her PCP for better diabetes control and return precautions given. Differential Diagnosis Differential Diagnosis: Musculoskeletal back pain, hyperglycemia, DKA Medical Records Medical records reviewed: Yes I reviewed the patient's medical records. Quality:SDOH Health Related Social Needs: No Data to Display PFSH All Active Problems (Updated 04/29/24 @ 19:02 by Basilio Escobar MD) Hyperglycemia (Acute) Constipation (Acute) Back pain (Acute) Bilateral lower extremity edema (Acute) Lower extremity pain (Acute) UTI (urinary tract infection) (Acute) Alcohol abuse (Chronic) SIRS (systemic inflammatory response syndrome) (Acute) Bipolar disorder (Chronic) Schizophrenia (Chronic) DVT prophylaxis (Acute) Discharge planning issues (Acute) GERD (gastroesophageal reflux disease) (Chronic) Intentional overdose of drug in tablet form (Acute) Suicide attempt (Acute) Depression (Chronic) Non-insulin dependent type 2 diabetes mellitus (Chronic) Hypertension (Chronic) Hyperlipidemia (Chronic) Medical History TIMOTHY (generalized anxiety disorder) Keen syndrome Cervicalgia Persistent insomnia Shoulder pain Constipation Tobacco abuse PTSD (post-traumatic stress disorder) Depressive disorder Vitamin D deficiency Obesity Suicide attempt Alcohol abuse Hypertension Hyperlipidemia GERD (gastroesophageal reflux disease) Bipolar disorder Schizophrenia Chronic headaches Cervical cancer Non-insulin dependent type 2 diabetes mellitus Surgical History History of facial surgery S/P cholecystectomy H/O: hysterectomy (~07/08/04) Ligation of fallopian tube section EGD - MAC (02/23/17) Cystoscopy Cholecystectomy Social History Smoking/Tobacco Use Status: Current every day Tobacco Type: cigarettes Smoking packs per day: 1 Smoking cigarettes per day: 20.0 Counseling given: provider counseling Smoking risk assessment performed?: Yes Alcohol Intake: current Alcohol Intake frequency: holidays/special occasions only Alcohol type: hard liquor Counseling given: Yes Drug use: Never Substance use type: does not use Housing: apartment Current gender identity: female Do you feel safe at home: Yes Do you feel safe in your relationship?: Yes
[2024-04-29 17:38] LABS: BE (Venous) 1 mmol/L (-2-3); HCO3 (Venous) 26 mmol/L (23-28); O2 Sat (Venous) 56 %; TCO2 (Venous) 24 mmol/L (24-29); pCO2 (Venous) 44 mmHg (41-51); pH (Venous) 7.38 (7.31-7.41); pO2 (Venous) 30 mmHg
[2024-04-29 17:39] LABS: Bacteria Negative HPF (Negative); C & S Indicated? No; Casts Negative LPF (Negative); Crystals Negative HPF (Negative); Epithelial Cells Few HPF (Negative); Mucus Negative (Negative); RBC 0-2 HPF (0-2); WBC 0-2 HPF (0-5)
[2024-04-29 17:40] LABS: Abs Immature Grans 0.05 10^3/uL (0.0-0.06); Absolute Basophil Count 0.07 10^3/uL (0.0-0.2); Absolute Eosinophil Count 0.16 10^3/uL (0.0-0.7); Absolute Lymphocyte Count 2.35 10^3/uL (1.2-3.4); Absolute Monocyte Count 0.45 10^3/uL (0.1-0.8); Absolute Neutrophil Count 7.11 10^3/uL (1.2-6.7); Basophils % 0.7 %; Eosinophils % 1.6 %; HCT 40.7 % (36.0-46.0); HGB 13.7 g/dL (11.2-15.7); Immature Grans % 0.5 %; Lymphocytes % 23.1 %; MCH 30.4 pg (27.0-33.0); MCHC 33.7 % (32.0-36.0); MCV 90 fL (80-95); Monocytes % 4.4 %; Neutrophils % 69.7 %; Platelet Count 321 10^3/uL (130-400); RBC 4.51 10^6/uL (3.93-5.22); RDW 12.3 % (11.7-14.6); RDW-SD 40.6 fL; WBC 10.19 10^3/uL (4.4-10.8)
[2024-04-29] MEDS: Normal Saline 10 ML VIAL IJ (17:48)
[2024-04-29] MEDS: diazePAM 10 MG/2 ML SYR 5 MG IVP (17:48)
[2024-04-29] MEDS: Ketorolac 15 MG/ML VIAL IVP (17:48)
[2024-04-29] MEDS: Normal Saline 1,000 ML 1000 ML IV (17:48)
[2024-04-29] MEDS: Droperidol 5 MG/2 ML VIAL 2.5 MG IVP (17:55)
[2024-04-29 17:56] LABS: ALT 32 U/L (14-59); AST 14 U/L (15-37); Albumin 3.1 g/dL (3.4-5.0); Alkaline Phosphatase 89 U/L (46-116); Anion Gap 10.2 mmol/L (3-11); BUN 9 mg/dL (7-18); Bilirubin, Total 0.35 mg/dL (0.2-1.0); CO2 26.8 mmol/L (21.0-32.0); CREATININE 1.1 mg/dL (0.55-1.02); Calcium 8.5 mg/dL (8.5-10.1); Chloride 99 mmol/L (98-107); Creatine Kinase 76 U/L (26-192); Estimated GFR 60.46 (mL/min/1.73m2); Potassium 4.5 mmol/L (3.5-5.1); Sodium 136 mmol/L (136-145); Total Protein 6.8 g/dL (6.4-8.2)
[2024-04-29 18:09] LABS: Lipase 36 U/L (16-77); Magnesium 1.6 mg/dL (1.8-2.4); TSH (W/Ref FT4) 0.75 uIU/mL (0.36-3.74)
[2024-04-29 18:10] LABS: Glucose 677 mg/dL (74-106)
[2024-04-29 18:21] LABS: Procalcitonin < 0.1 ng/mL
[2024-04-29] MEDS: Insulin REGULAR-Human 100 UNITS/ML UNIT 15 UNITS IV (18:33)
== END 2024-04-29 19:13 | disposition home or self-care (01) ==
PROVIDERS: Emergency Provider Emergency Medicine; PCP Family Medicine
DX: M54.50 Low back pain, unspecified (principal); K59.00 Constipation, unspecified; E11.65 Type 2 diabetes mellitus with hyperglycemia; I10 Essential (primary) hypertension; E78.5 Hyperlipidemia, unspecified
CPT/HCPCS: 80053; 82550; 82805; 82962; 83690; 84145; 96361; 96374; 96375; 99284; 81003; 81015; 83735; 84443; 85025; J1790; J1815; J1885; J3360

== ENCOUNTER 2024-09-11 12:45 | Outpatient (REF) | payer MEDICARE, SELFPAY ==
--- NOTE | 2024-09-11 16:26 | SKI_PTH ---
PATIENT: Raegan Hammer LOC: [facility] U#:[id number] AGE/SX: 54/F ROOM: RE09/11/[address]: Brigid Solis NP : [id number] BED: DIS: 09/12/2024 SPEC #: [id number] RECD: 09/12/24 12:51 STATUS: BETO AKHTAR #: [id number] ALEKSANDR: 09/11/24 16:[address]: Brigid Solis DEPT: Surgical Specimen RECD BY: Jeannette Sanchez Tissues: 1 - SKIN BIOPSY(SHAVE/PUNCH) 2 - SKIN BIOPSY(SHAVE/PUNCH) Procedures: SKIN LEVEL 4 SPECIAL STAIN 1 Comments: [id number]
== END 2024-09-12 12:45 | disposition home or self-care (01) ==
LOC: LBN 12:45
PROVIDERS: PCP Nurse Practitioner Family; Visit Provider Nurse Practitioner Family
DX: B88.9 Infestation, unspecified (principal); L98.492 Non-pressure chronic ulcer of skin of other sites with fat layer exposed
CPT/HCPCS: 88305; 88312

== ENCOUNTER 2024-09-19 00:34 | Outpatient (CLI) | payer MEDICARE, SELFPAY ==
--- NOTE | 2024-09-19 07:15 | DI.US_ITS ---
Exam(s) US ABDOMEN LIMITED EXAM: US ABDOMEN LIMITED CLINICAL HISTORY: RT UPPER ABD PAIN,R10.11 TECHNIQUE: Ultrasound abdomen performed using standard protocol. COMPARISON: No exams were available for comparison FINDINGS: There is no ascites evident. LIVER: There are no hepatic lesions evident nor dilatation of intrahepatic ducts. GALLBLADDER/BILIARY: The gallbladder is surgically absent. The common hepatic duct measures 7mm at the level of jose antonio hepatis, this commensurate with post elvis cystectomy status.. PANCREAS: There is no evidence of pancreatic mass nor dilatation of the pancreatic duct. RIGHT KIDNEY:No evidence of solid mass, calculus, nor hydronephrosis. No cortical cysts evident. IMPRESSION: 1. The gallbladder surgically absent. CBD diameter is 7 mm, commensurate with post cholecystectomy status. 2. No other significant ultrasound findings in the right upper quadrant. 3. There is no ascites. DATA REPOSITORY:
== END 2024-09-19 00:54 ==
LOC: DI 00:34
PROVIDERS: PCP Nurse Practitioner Family; Visit Provider Nurse Practitioner Family
DX: R10.11 Right upper quadrant pain (principal)
CPT/HCPCS: 76705

== ENCOUNTER 2024-09-26 01:04 | Outpatient (CLI) | payer MEDICARE, SELFPAY ==
[2024-09-26 13:51] LABS: HCT 40.2 % (36.0-46.0); HGB 13.3 g/dL (11.2-15.7); MCH 29.6 pg (27.0-33.0); MCHC 33.1 % (32.0-36.0); MCV 89 fL (80-95); MPV 8.9 fL (8.0-11.0); Platelet Count 384 10^3/uL (130-400); RDW 12.4 % (11.7-14.6); RDW-SD 40.9 fL; WBC 8.21 10^3/uL (4.4-10.8)
[2024-09-26 14:19] LABS: ALT 16 U/L (14-59); AST 12 U/L (15-37); Albumin 3.4 g/dL (3.4-5.0); Alkaline Phosphatase 78 U/L (46-116); BUN 8 mg/dL (7-18); Bilirubin, Total 0.22 mg/dL (0.2-1.0); CREATININE 0.8 mg/dL (0.55-1.02); Calcium 9.3 mg/dL (8.5-10.1); Calculated LDL 132 mg/dL (<100); Chloride 103 mmol/L (98-107); Cholesterol 240 mg/dL (<200); Glucose 183 mg/dL (74-106); HDL Cholesterol 48 mg/dL (40-60); Potassium 4.3 mmol/L (3.5-5.1); Sodium 139 mmol/L (136-145); TSH (W/Ref FT4) 0.88 uIU/mL (0.36-3.74); Total Protein 7.3 g/dL (6.4-8.2); Triglyceride 302 mg/dL (<150)
[2024-09-27 03:01] LABS: HIV-1/2 Ag & Ab Screen Negative (Negative)
[2024-09-29 13:20] LABS: Syphilis Serology (RPR) Negative (Negative)
[2024-09-29 13:47] LABS: HSV Type 1 Ab, IgG Negative (Negative); HSV Type 2 Ab, IgG Positive (Negative)
[2024-09-29 23:02] LABS: Hepatitis B Surface Ag Negative (Negative)
[2024-09-29 23:57] LABS: Hepatitis C Ab w Rflx HCV PCR Negative (Negative)
[2024-09-30 00:06] LABS: Hep A Total Ab w Rflx IgM Negative (Negative)
== END 2024-09-26 01:05 | disposition home or self-care (01) ==
LOC: LBO 01:04
PROVIDERS: PCP Nurse Practitioner Family; Visit Provider Nurse Practitioner Family
DX: F32.9 Major depressive disorder, single episode, unspecified (principal); I10 Essential (primary) hypertension; Z00.00 Encounter for general adult medical examination without abnormal findings; F20.9 Schizophrenia, unspecified; F10.10 Alcohol abuse, uncomplicated; E78.5 Hyperlipidemia, unspecified; E11.9 Type 2 diabetes mellitus without complications; K21.9 Gastro-esophageal reflux disease without esophagitis; R21 Rash and other nonspecific skin eruption; Z20.2 Contact with and (suspected) exposure to infections with a predominantly sexual mode of transmission
CPT/HCPCS: 36415; 80053; 80061; 85027; 86709; 86803; 87340; 87389; 84443; 86592; 86695; 86696

== ENCOUNTER 2024-09-30 03:07 | Outpatient (CLI) | payer MEDICARE, SELFPAY ==
--- NOTE | 2024-09-30 06:45 | DI.MAMMO_ITS ---
Exam(s) MAMMO SCREENING EXAM: MAMMO SCREENING CLINICAL HISTORY: screening,Z12.39,FAMILY H/O BREAST CA TECHNIQUE: Mammograms were interpreted according to the usual protocol including computer analysis w [employer] CAD system, tomosynthesis and C-view imaging. COMPARISON: No exams were available for comparison. Previous exams are not able to be obtained. FINDINGS: The breasts are composed of scattered fibroglandular densities, Breast Density category B. There are areas of nodularity in both upper outer quadrants. Spot compression views and ultrasound ar e requested for further evaluation. No suspicious microcalcifications are seen in either breast. No skin thickening or abnormal axillary lymph nodes are seen. IMPRESSION: BI-RADS Category 0 - Incomplete: Need additional imaging evaluation Breast Density - Category B, scattered fibroglandular densities. A negative radiographic report should not delay biopsy if a dominant or clinically suspicious mass is present. Up to ten percent of cancers are not identified on mammography. A negative report may reinforce clinical impression. Adenosis and dense breasts may obscure an underlying neoplasm. False positive reports average 6 to 10%. Patient will receive a letter notifying them of these results.
== END 2024-09-30 03:27 ==
LOC: DI 03:07
PROVIDERS: PCP Nurse Practitioner Family; Visit Provider Nurse Practitioner Family
DX: Z12.31 Encounter for screening mammogram for malignant neoplasm of breast (principal); R92.323 Mammographic fibroglandular density, bilateral breasts
CPT/HCPCS: 77063; 77067

== ENCOUNTER 2024-10-10 00:25 | Outpatient (CLI) | payer MEDICARE, SELFPAY ==
--- NOTE | 2024-10-10 | DI.US_ITS ---
Exam(s) US BREAST LT COMPLETE US BREAST RT COMPLETE MG MAMMO SCREEN CALL BACK BI EXAM: MG MAMMO SCREEN CALL BACK BI CLINICAL HISTORY: AREAS NODULARITY IN BOTH UPPER OUTER QUAD R92.8 ABNL MAMMO. TECHNIQUE: Bilateral spot mammographic images obtained with 3D tomosynthesisand utilizing computer a ided detection (CAD). . Complete bilateral breast Ultrasound was also performed, including all 4 quadrants, the retroareolar region, and the ipsilateral axilla. COMPARISON: Prior mammograms were reviewed. This additional imaging was performed due to findings described on the recent screening mammogram of 09/30/2020. FINDINGS: DIAGNOSTIC MAMMOGRAM: Additional bilateral spot mammographic views performed todayare somewhat equivocal.We proceeded with ultrasound COMPLETE BILATERAL BREAST ULTRASOUND: Left breast ultrasound: There is a solitary finding at 2 o'clock position which is an area slightly a symmetric tissue although without a truly discernible nodule. No other focal findings in all 4 quadr ants. Scanning of the left axilla is negative for adenopathy. Right breast ultrasound: There is a similar appearing finding at the 9 o'clock position of the right breast, also without a truly discernible nodule.. No other focal findings in all 4 quadrants. Scanning of the ipsilateral axilla reveals no significant adenopathy. IMPRESSION: 1. Bilateral findings as above but without truly discernible nodules on ultrasound. 2. Appropriate follow-up is repeat bilateral breast imaging mammogram and ultrasound in 3 months and we will make an attempt to acquire her prior remote outside mammograms performed over 10 years ago a t outside institution. The patient was informed of these findings and recommendations myself prior to leaving the department today. BI-RADS Category 3 - 3 month - Probably Benign Finding: Recommend follow-up mammography and ultrasoun d in 3 months Breast Density - Category B - Scattered areas of fibroglandular density Breast density Category C or D implies that the patient has dense breast tissue. Dense breast tissue can make it harder to find cancer on a mammogram. Dense breast tissue is also associated with an incr eased risk of breast cancer. This information about the result of the mammogram report was provided to the patient to raise their awareness. Use this report when you speak with the patient about their risks for breast cancer, which includes their family history. At that time, you may recommend additional screening tests (Ultrasoun d or MRI) as these tests may add significant information. A negative radiographic report should not delay biopsy if a dominant or clinically suspicious mass is present. Up to ten percent of cancers are not identified on mammography. A negative report may reinforce clinical impression. Adenosis and dense breasts may obscure an underlying neoplasm. False positive reports average 6 to 10%. Patient will receive a letter notifying them of these results.
== END 2024-10-10 00:45 ==
PROVIDERS: PCP Nurse Practitioner Family; Visit Provider Nurse Practitioner Family
DX: N63.22 Unspecified lump in the left breast, upper inner quadrant (principal); Z12.31 Encounter for screening mammogram for malignant neoplasm of breast; N63.12 Unspecified lump in the right breast, upper inner quadrant
CPT/HCPCS: 76642; 77063; 77067

== ENCOUNTER → 2024-12-11 15:02 | Outpatient (BNVA) | payer MEDICARE, SELFPAY | PROVIDERS: PCP Nurse Practitioner Family; Referring Provider Nurse Practitioner Family; Visit Provider Student in an Organized Health Care Education/Training Program | DX: Z12.11 Encounter for screening for malignant neoplasm of colon (principal); Z86.0101 Personal history of adenomatous and serrated colon polyps; Z80.0 Family history of malignant neoplasm of digestive organs ==

== ENCOUNTER 2024-12-16 21:39 | Outpatient (REF) | payer MEDICARE, SELFPAY | END 2024-12-16 21:40 | disposition home or self-care (01) | LOC: LBN 21:39 | PROVIDERS: PCP Nurse Practitioner Family; Visit Provider Nurse Practitioner Family | DX: J02.9 Acute pharyngitis, unspecified (principal) | CPT/HCPCS: 87070 ==

== ENCOUNTER 2024-12-23 20:51 | Outpatient (REF) | payer MEDICARE, SELFPAY | END 2024-12-23 20:52 | disposition home or self-care (01) | LOC: LBN 20:51 | PROVIDERS: PCP Nurse Practitioner Family; Visit Provider Nurse Practitioner Family | DX: R19.4 Change in bowel habit (principal) | CPT/HCPCS: 87177 ==

== ENCOUNTER 2025-01-07 02:15 | Outpatient (CLI) | payer MEDICARE, SELFPAY ==
--- NOTE | 2025-01-07 07:15 | DI.US_ITS ---
Exam(s) US BREAST LT COMPLETE US BREAST RT COMPLETE MG MAMMO DIAGNOSTIC BI EXAM: MG MAMMO DIAGNOSTIC BI and bilateral complete ultrasound breast CLINICAL HISTORY: 3-6 MO F/U,F/U ABNL MAMMO,Z09.R92.8,BILAT FINDINGS. TECHNIQUE: Craniocaudal and mediolateral oblique Full Field Digital Mammography views of the bilater al breast with Computer Aided Diagnosis followed by Tomosynthesis and complete bilateral breast ultra sound. All 4 quadrants of both breast were evaluated sonographically. In addition the axilla and re troareolar regions of both breast were interrogated sonographically. COMPARISON: Comparison is made with prior examinations. FINDINGS: Mammography/Tomosynthesis: Masses/Architectural Distortion: There is again seen asymmetric breast tissue in the upper outer quad rants of both breasts. These area have a similar appearance compared to the prior examinations. Microcalcifictions: No suspicious pleomorphic-type are seen. Skin Thickening/Nipple Retraction: None. Complete bilateral breast US: Echotexture: Normal appearance of the glandular tissue. Shadowing: No suspicious foci. Cyst: A simple cyst is seen in the left breast at the 9 o'clock position 2 cm from the nipple measuri ng 0.6 x 0.4 x 0.5 cm. Solid lesions: No solid masses are seen in either breast sonographically. Ductal dilation: None. IMPRESSION: 1. No definite evidence of malignancy is noted. 2. A six-month follow-up bilateral mammogram is requested. 3. The findings were discussed with the patient on the date of the examination. BI-RADS Category 3 - 6 month - Probably Benign Finding: Recommend follow-up imaging in 6 months Density: Breast density Category C or D implies that the patient has dense breast tissue. Dense breast tissue can make it harder to find cancer on a mammogram. Dense breast tissue is also associated with an incr eased risk of breast cancer. This information about the result of the mammogram report was provided to the patient to raise their awareness. Use this report when you speak with the patient about their risks for breast cancer, which includes their family history. At that time, you may recommend additional screening tests (Ultrasoun d or MRI) as these tests may add significant information. A negative radiographic report should not delay biopsy if a dominant or clinically suspicious mass is present. Up to ten percent of cancers are not identified on mammography. A negative report may reinforce clinical impression. Adenosis and dense breasts may obscure an underlying neoplasm. False positive reports average 6 to 10%. Patient will receive a letter notifying them of these results.
== END 2025-01-07 02:35 ==
LOC: DI 02:15
PROVIDERS: PCP Nurse Practitioner Family; Visit Provider Nurse Practitioner Family
DX: Z09 Encounter for follow-up examination after completed treatment for conditions other than malignant neoplasm (principal); R92.8 Other abnormal and inconclusive findings on diagnostic imaging of breast
CPT/HCPCS: 76642; 77062; 77066; G0279

== ENCOUNTER 2025-01-12 20:19 | Emergency (ER) | payer MEDICARE, SELFPAY ==
[2025-01-12 20:30] VITALS: BP 148/104; PULSE 115; RESP 16; TEMP 36.6; O2SAT 97
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
[2025-01-12] MEDS: Ibuprofen 600 MG TAB PO (22:14)
[2025-01-12] MEDS: hydrOXYzine HCL 25 MG TAB PO (22:14)
[2025-01-12] MEDS: SUMAtriptan 25 MG TAB (22:14)
[2025-01-12] MEDS: Acetaminophen 325 MG TAB 650 MG PO (22:15)
[2025-01-12] MEDS: LIDOCAINE 5% TP (22:16)
[2025-01-12] MEDS: Insulin Glargine 300 UNITS/3 ML PEN 30 UNITS SC (22:16)
== END 2025-01-13 07:27 | disposition home or self-care (01) ==
PROVIDERS: Emergency Provider Physician Assistant; PCP Nurse Practitioner Family
DX: L20.81 Atopic neurodermatitis (principal); Z65.8 Other specified problems related to psychosocial circumstances; I10 Essential (primary) hypertension; E11.9 Type 2 diabetes mellitus without complications; Z59.41 Food insecurity; Z59.12 Inadequate housing utilities; Z59.82 Transportation insecurity; Z63.9 Problem related to primary support group, unspecified; Z59.89 Other problems related to housing and economic circumstances; Z60.8 Other problems related to social environment
CPT/HCPCS: 99285; J3490; 99284; J1815